=== PATIENT | female | born 1960 | race African-American/Black ===

== ENCOUNTER 2019-10-02 00:52 | Inpatient (IN) | payer MEDICAID ==
[~2019-10-02] VITALS: Ht 165.1 cm; Wt 74.9 kg
[2019-10-02] VITALS (9 sets, daily range): BP systolic 89–134; BP diastolic 62–77
--- NOTE | 2019-10-02 01:00 | NUR ---
ED Nurse Note: Brought in by ambulance [facility] from [facility] c/o failure to thrive and decreased oral intake. Pt COVID19 positive 09/22/19. Changed into gown and attached to monitor; vitals stable; afebrile. Patient AAOx1; arousable to name; presents with repetitive nonlinear speech. respirations even and unlabored; room air; spo2 wnl. Incontinent x2. Bowel sounds present in all quadrants. Skin intact. Fall and droplet precautions observed. All safety measures met.
[2019-10-02] MEDS ORDERED: DOCUSATE SODIU100 MG ORAL (01:04)
[2019-10-02] MEDS ORDERED: LEVOTHYROXINE75 MCG ORAL (01:04)
[2019-10-02] MEDS ORDERED: FUROSEMIDE20 M1 ORAL (01:04)
[2019-10-02] MEDS ORDERED: IMITREX50 MG ORAL (01:04)
[2019-10-02] MEDS ORDERED: ATENOLOL50 MG ORAL (01:04)
[2019-10-02] MEDS ORDERED: PHENYTOIN SODI100 MG ORAL (01:04)
[2019-10-02] MEDS ORDERED: KEPPRA500 M4 ORAL (01:04)
[2019-10-02] MEDS ORDERED: TYLENOL325 M1 PO (01:04)
--- NOTE | 2019-10-02 01:10 | NUR ---
ED Nurse Note: EKG done at bedside; NSR. IV access established right hand 18g. Blood and urine collected; sent down to lab. Will continue to monitor.
--- NOTE | 2019-10-02 01:15 | NUR ---
ED Nurse Note: Blood culture and inital lactic, VRE CRE MRSA swab collected; sent down to lab.
--- NOTE | 2019-10-02 01:29 | Emergency Room Report ---
History of Present Illness General Chief Complaint: Generalized Weakness Source: Patient, Medical Record, EMS Present Illness HPI This is a 59-year-old female who has a history of seizure psychiatric history and half-way patient. She presents with chief complaint of generalized weakness. Decreased appetite and decreased activities. She tested positive for COVID on September 20. Since then symptoms been progressively worse. There is no mention of fever chills but no cough or congestion. There is generalized weakness. History is limited on this patient because of her condition. Allergies: Coded Allergies: No Known Allergies (Unverified , 10/02/19) COVID-19 Screening Contact w/high risk pt: Yes Recent Travel to affected area: No Experienced COVID-19 symptoms?: Yes COVID-19 symptoms experienced: Fever (T>100.4F or >38C) Patient History Past Medical History: see triage record, old chart reviewed Past Surgical History: other Pertinent Family History: none Social History: Denies: smoking Now: No Immunizations: other Reviewed Nursing Documentation: PMH: Agreed; PSxH: Agreed Nursing Documentation-PMH Hx Cardiac Problems: Yes - heart failure Hx Hypertension: Yes - hyperlipidemia, hypothyroid Hx Gastrointestinal Problems: Yes - GERD Hx Neurological Problems: Yes - encephalopathy Hx Seizures: Yes - epilepsy Review of Systems Constitutional: Reports: malaise, weakness Eye: Denies: eye pain, blurred vision ENT: Denies: ear pain, nose congestion, throat swelling Respiratory: Denies: cough, shortness of breath Cardiovascular: Denies: chest pain, palpitations Gastrointestinal: Denies: abdominal pain, diarrhea, nausea, vomiting Musculoskeletal: Denies: back pain, joint pain Skin: Denies: rash Neurological: Denies: headache, numbness Endocrine: Denies: increased thirst, increased urine Hematologic/Lymphatic: Denies: easy bruising All Other Systems: negative except mentioned in HPI Physical Exam Vital Signs Date Time Temp Pulse Resp B/P (MAP) Pulse Ox O2 Delivery O2 Flow Rate FiO2 10/02/19 00:55 98.2 74 18 100/77 (85) 96 Room Air Vitals unremarkable Sp02 EP Interpretation: reviewed, normal General Appearance: well appearing, no apparent distress, alert Head: normocephalic, atraumatic Eyes: bilateral eye PERRL, bilateral eye EOMI ENT: hearing grossly normal, normal pharynx Neck: full range of motion, supple, no meningismus Respiratory: chest non-tender, lungs clear, normal breath sounds Cardiovascular #1: regular rate, rhythm, no murmur Gastrointestinal: normal bowel sounds, non tender, no mass, no organomegaly, no bruit, non-distended Musculoskeletal: back normal, normal range of motion Neurologic: alert, grossly normal Psychiatric: mood/affect normal Procedures Critical Care Time Critical Care Time Critical care is mandated in this patient who presented with acute renal failure and sepsis secondary to COVID infection. Patient require my urgent intervention to attenuate the risks of metabolic collapse which may lead to cardiovascular collapse and . Critical care time is 35 minutes excluding any reportable procedure. Critical care time included evaluation, multiple reevaluation, looking at old charts, interpreting laboratory and diagnostic data , discussing case with patient and family and consultants, and charting. Medical Decision Making Diagnostic Impression: Primary Impression: Acute metabolic encephalopathy Additional Impressions: COVID-19 virus infection UTI (urinary tract infection) Qualified Codes: N30.00 - Acute cystitis without hematuria ARF (acute renal failure) Qualified Codes: N17.9 - Acute kidney failure, unspecified Anemia Qualified Codes: D64.9 - Anemia, unspecified ER Course Patient presents with generalized weakness secondary to COVID infection. She is also in acute renal failure. She is not hypoxic. Antibiotics given. Patient will be admitted for IV fluid and IV antibiotics. I contacted Dr. Leija for admission. EKG Diagnostic Results Rate: normal Rhythm: NSR ST Segments: no acute changes Rhythm Strip Diag. Results EP Interpretation: yes Rate: 65 Rhythm: NSR, no PVC's, no ectopy Chest X-Ray Diagnostic Results Chest X-Ray Diagnostic Results : Chest X-Ray Ordered: Yes # of Views/Limited/Complete: 1 View Indication: Shortness of Breath EP Interpretation: Yes Interpretation: no consolidation, no effusion, no pneumothorax, no acute cardiopulmonary disease Impression: No acute disease Electronically Signed by: Ubaldo Poe MD Last Vital Signs Date Time Temp Pulse Resp B/P (MAP) Pulse Ox O2 Delivery O2 Flow Rate FiO2 10/02/19 00:55 98.2 74 18 100/77 (85) 96 Room Air Status: improved Disposition: ADMITTED INPATIENT Condition: Serious Ubaldo Poe MD October 02, 2019 01:29
[2019-10-02 01:55] LABS: APPEARANCE,URINE SLIGHTLY CLOUDY; BILIRUBIN, URINE NEGATIVE (NEGATIVE); GLUCOSE, URINE (UA) 2+ (NEGATIVE); KETONES,URINE NEGATIVE (NEGATIVE); LEUKOCYTE ESTERASE ,URINE 2+ (NEGATIVE); NITRITE,URINE POSITIVE (NEGATIVE); PH,URINE 6.5 (4.5-8.0); PROTEIN,URINE 4+ (NEGATIVE); UROBILINOGEN,URINE NORMAL MG/DL (0.0-1.0)
[2019-10-02 02:02] LABS: BASOPHILS % (AUTO) 0.6 % (0.0-2.0); EOSINOPHILS % (AUTO) 1.1 % (0.0-3.0); HEMATOCRIT 33.8 % (37.0-47.0); HEMOGLOBIN 11.5 G/DL (12.0-16.0); LYMPHOCYTES % (AUTO) 17.8 % (20.0-45.0); MEAN CORPUSCULAR VOLUME 74 FL (80-99); MONOCYTES % (AUTO) 9.5 % (1.0-10.0); PLATELET COUNT 457 K/UL (150-450); RED BLOOD COUNT 4.56 M/UL (4.20-5.40); RED CELL DISTRIBUTION WIDTH 11.8 % (11.6-14.8); WHITE BLOOD COUNT 16.3 K/UL (4.8-10.8)
[2019-10-02 02:09] LABS: ANION GAP 15 mmol/L (5-15); BLOOD UREA NITROGEN 114 mg/dL (7-18); CARBON DIOXIDE 18 MMOL/L (21-32); CHLORIDE 110 MMOL/L (98-107); CREATININE 10.5 MG/DL (0.55-1.30); POTASSIUM 4.7 MMOL/L (3.5-5.1); SODIUM 143 MMOL/L (136-145)
[2019-10-02 02:13] LABS: COLOR,URINE YELLOW
[2019-10-02 02:23] LABS: ALANINE AMINOTRANSFERASE 49 U/L (12-78); ALBUMIN/GLOBULIN RATIO 0.1 (1.0-2.7); ALKALINE PHOSPHATASE 185 U/L (46-116); ASPARTATE AMINO TRANSFERASE 53 U/L (15-37); BILIRUBIN,TOTAL 0.4 MG/DL (0.2-1.0)
[2019-10-02] MEDS ORDERED: Azithromycin 500 MG in NS 275 ML IV ONE (03:15)
[2019-10-02] MEDS ORDERED: cefTRIAXone 1 GM in NS 55 ML IVPB ONE (03:15)
[2019-10-02] MEDS ORDERED: Enoxaparin 60mg Inj SUBQ ONE (03:15)
--- NOTE | 2019-10-02 03:15 | NUR ---
ED Nurse Note: MEDICATED ORDERED; PATIENT TOLERATED WELL. BP 89/72. PATIENT SBP BASELINE 90-100. ASSYMPTOMATIC.
--- NOTE | 2019-10-02 04:26 | NUR ---
ED Nurse Note: PATIENT IN BED WITH NO ACUTE DISTERESS. BP REMAINS STABLE TO BASELINE; BP 96/67
--- NOTE | 2019-10-02 05:32 | NUR ---
ED Nurse Note: REPORT GIVEN TO YE GREENE. ENDORSED PATIENT BASELINE BLOOD PRESSURE AND CONTINUITY OF CARE. PATIENT TO BE ADMITTED TO [place] [id number] UNDER THE CARE OF MD TAYLER.
--- NOTE | 2019-10-02 06:00 | NUR ---
TRANSFER TO FLOOR: Patient transferred to [place] [id number] as ordered, per TAYLER. Report given to YE GREENE. PATIENT STABLE FOR TRANSFER. TRANSPORTED TO UNIT WITH [facility] VIA GURNEY. TRANSPORT DROPLET PRECAUTIONS OBSERVED. BELONGINGS AND ADMISSION PACKET SENT WITH PATIENT.
--- NOTE | 2019-10-02 06:20 | NUR ---
NURSE NOTES: Receive pt from ER in stable condition. pt is A&O x1,awake and verbal. pt vitals are stable, has no sob,cough,fever and complain of pain. pt is regular diet, skin is intact and she has RH 18g iv sl. pt is on covid 19 isolation because pt is positive for covid 19.Bed is in the lowest condition,locked and alarm on. Call light within reach. we will keep monitoring the pt.
--- NOTE | 2019-10-02 07:01 | NUR ---
HAND-OFF: Report given to andrade RN.
--- NOTE | 2019-10-02 07:02 | NUR ---
NURSE NOTES: Received patient in bed awake. No SOB or acute distress. IV line on right hand intact and patent. A&O x 1-2. Dr Leija notified of admission, awaiting callback. HOB elevated. Bed locked in lowest position, alarm on. Call light within reach. Will continue plan of care.
--- NOTE | 2019-10-02 07:38 | Diagnostic Imaging Report ---
Indication: Shortness of breath Technique: One view of the chest Comparison: 03/25/2006 Findings: Less optimal inspiration currently. There is some crowding of bronchovascular markings at the left lung base. Left costophrenic sulcus is obscured, small pleural effusion likely. The remainder the lungs pleural spaces are clear ventriculoperitoneal shunt tubing runs over the right chest. Impression: Probable small left pleural effusion Other findings as noted
--- NOTE | 2019-10-02 08:50 | NUR ---
NURSE NOTES: Dr Barrera called and gave admitting orders, noted and carried out.
[2019-10-02] MEDS: Docusate 100mg cap ORAL SCH ×2 (09:58→17:27)
[2019-10-02] MEDS: Phenytoin 100mg cap ORAL SCH ×3 (10:00→21:50)
--- NOTE | 2019-10-02 11:20 | Consultation ---
Consult Note Consult Note I am asked to evaluate the patient at the request of Dr. Dustin Leija for renal failure This is a 59-year-old female who has a history of seizure psychiatric history and [facility] patient. She presents with chief complaint of generalized weakness. Decreased appetite and decreased activities. She tested positive for COVID on September 20. Since then symptoms been progressively worse. There is no mention of fever chills but no cough or congestion. There is generalized weakness. History is limited on this patient because of her condition. No Known Allergies (Unverified , 10/02/19) COVID-19 Screening Contact w/high risk pt: Yes Recent Travel to affected area: No Experienced COVID-19 symptoms?: Yes COVID-19 symptoms experienced: Fever (T>100.4F or >38C) Hx Cardiac Problems: Yes - heart failure Hx Hypertension: Yes - hyperlipidemia, hypothyroid Hx Gastrointestinal Problems: Yes - GERD Hx Neurological Problems: Yes - encephalopathy Hx Seizures: Yes - epilepsy Assessment/Plan Renal failure most likely acute superimposed on chronic 4+ proteinuria with severe hypoalbuminemia should rule out nephrotic syndrome COVID-19 virus infection UTI Anemia with low MCV, likely part due to iron deficiency Toxic metabolic encephalopathy History of seizures Saini catheter, 24-hour urine collection for protein Hydrate Kidney ultrasound Avoid nephrotoxic's Urine studies Monitor renal parameters Antibiotics Continue per consultants Yinka Boston MD October 02, 2019 11:20
[2019-10-02] MEDS ORDERED: Albumin Human 5% 250ml IV SCH (11:30)
--- NOTE | 2019-10-02 13:04 | Consultation ---
History of Present Illness General Date patient seen: October 02, 2019 Chief Complaint: Generalized Weakness Present Illness HPI 59 y/o F with hx of CHF, HLD, hypothyroidism, GERD, seizure disorder, [place] resident presented to ED on 10/01 with generalized weakness, decreased appetite and energy. Patient tested positive for COVID on September 20. Since then , symptoms has been progressively worse. Patient afebrile, noted with Cr up to 10, leukocytosis. Denied fever, chills, cough, congestion Allergies: Coded Allergies: No Known Allergies (Unverified , 10/02/19) Medication History Scheduled Atenolol* (Tenormin*), 50 MG ORAL DAILY, (Reported) Docusate Sodium* (Docusate Sodium*), 100 MG ORAL TWICE A DAY, (Reported) Furosemide* (Lasix*), 20 MG ORAL DAILY, (Reported) Levetiracetam (Keppra), 500 MG ORAL EVERY 12 HOURS, (Reported) Levothyroxine Sodium* (Levothyroxine Sodium*), 25 MCG ORAL DAILY, (Reported) Phenytoin Sodium Extended* (Phenytoin Sodium Extended*), 100 MG ORAL THREE TIMES A DAY, (Reported) Sumatriptan Succinate* (Imitrex*), 25 MG ORAL DAILY PRN MIGRAINE, (Reported) Miscellaneous Medications Acetaminophen (Tylenol), 325 MG PO, (Reported) Patient History Healthcare decision maker Resuscitation status Advanced Directive on File Patient History Narrative Pmhx: as above Shx: Denies: smoking Fhx: non contributory Review of Systems All Other Systems: negative except mentioned in HPI Physical Exam Physical Exam Narrative General Appearance: well appearing, no apparent distress, alert Head: normocephalic, atraumatic Eyes: bilateral eye PERRL, bilateral eye EOMI ENT: hearing grossly normal, normal pharynx Neck: full range of motion, supple, no meningismus Respiratory: chest non-tender, lungs clear, normal breath sounds Cardiovascular #1: regular rate, rhythm, no murmur Gastrointestinal: normal bowel sounds, non tender, no mass, no organomegaly, no bruit, non-distended Musculoskeletal: back normal, normal range of motion Neurologic: alert, grossly normal Psychiatric: mood/affect normal Last 24 Hour Vital Signs Date Time Temp Pulse Resp B/P (MAP) Pulse Ox O2 Delivery O2 Flow Rate FiO2 10/02/19 12:00 98.6 73 18 107/74 (85) 96 10/02/19 09:00 67 105/65 10/02/19 08:00 98.8 67 17 105/65 (78) 97 10/02/19 06:39 97.6 68 18 127/67 (87) 96 10/02/19 06:38 Room Air 10/02/19 06:00 98.2 74 18 96/ 96 Room Air 10/02/19 05:45 98.2 73 18 98/67 96 Room Air 10/02/19 04:23 98.2 74 18 96/67 96 Room Air 10/02/19 03:00 98.2 71 18 89/72 96 Room Air 10/02/19 01:00 74 18 Room Air 10/02/19 01:00 98.2 74 18 100/77 96 Room Air 10/02/19 00:55 98.2 74 18 100/77 (85) 96 Room Air Laboratory Tests Test 10/02/19 01:10 White Blood Count 16.3 K/UL (4.8-10.8) H Red Blood Count 4.56 M/UL (4.20-5.40) Hemoglobin 11.5 G/DL (12.0-16.0) L Hematocrit 33.8 % (37.0-47.0) L Mean Corpuscular Volume 74 FL (80-99) L Mean Corpuscular Hemoglobin 25.2 PG (27.0-31.0) L Mean Corpuscular Hemoglobin Concent 34.1 G/DL (32.0-36.0) Red Cell Distribution Width 11.8 % (11.6-14.8) Platelet Count 457 K/UL (150-450) H Mean Platelet Volume 4.8 FL (6.5-10.1) L Neutrophils (%) (Auto) 71.0 % (45.0-75.0) Lymphocytes (%) (Auto) 17.8 % (20.0-45.0) L Monocytes (%) (Auto) 9.5 % (1.0-10.0) Eosinophils (%) (Auto) 1.1 % (0.0-3.0) Basophils (%) (Auto) 0.6 % (0.0-2.0) Erythrocyte Sedimentation Rate 70 MM/HR (0-30) H D-Dimer 4.10 mg/L FEU (0.00-0.49) H Urine Color Yellow Urine Appearance Slightly cloudy Urine pH 6.5 (4.5-8.0) Urine Specific [place] 1.015 (1.005-1.035) Urine Protein 4+ (NEGATIVE) H Urine Glucose (UA) 2+ (NEGATIVE) H Urine Ketones Negative (NEGATIVE) Urine Blood 1+ (NEGATIVE) H Urine Nitrite Positive (NEGATIVE) H Urine Bilirubin Negative (NEGATIVE) Urine Urobilinogen Normal MG/DL (0.0-1.0) Urine Leukocyte Esterase 2+ (NEGATIVE) H Urine RBC 0-2 /HPF (0 - 2) Urine WBC Tntc /HPF (0 - 2) H Urine Squamous Epithelial Cells Few /LPF (NONE/OCC) Urine Bacteria Many /HPF (NONE) H Sodium Level 143 MMOL/L (136-145) Potassium Level 4.7 MMOL/L (3.5-5.1) Chloride Level 110 MMOL/L (98-107) H Carbon Dioxide Level 18 MMOL/L (21-32) L Anion Gap 15 mmol/L (5-15) Blood Urea Nitrogen 114 mg/dL (7-18) H Creatinine 10.5 MG/DL (0.55-1.30) H Estimat Glomerular Filtration Rate 4.6 mL/min (>60) Glucose Level 122 MG/DL (74-106) H Lactic Acid Level 1.80 mmol/L (0.4-2.0) Calcium Level 8.0 MG/DL (8.5-10.1) L Total Bilirubin 0.4 MG/DL (0.2-1.0) Aspartate Amino Transf (AST/SGOT) 53 U/L (15-37) H Alanine Aminotransferase (ALT/SGPT) 49 U/L (12-78) Alkaline Phosphatase 185 U/L (46-116) H Troponin I 0.000 ng/mL (0.000-0.056) C-Reactive Protein, Quantitative 16.5 mg/dL (0.00-0.90) H Total Protein 7.7 G/DL (6.4-8.2) Albumin 1.0 G/DL (3.4-5.0) L Globulin 6.7 g/dL Albumin/Globulin Ratio 0.1 (1.0-2.7) L Microbiology Date/Time Source Procedure Growth Status 10/02/19 01:10 Rectum Received Height (Feet): 5 Height (Inches): 5.00 Weight (Pounds): 130 Medications Current Medications Medications (Trade) Dose Ordered Sig/[place] Route PRN Reason Start Time Stop Time Status Last Admin Dose Admin Acetaminophen (Tylenol) 650 mg Q4HR PRN ORAL TEMP>100.5 10/02/19 03:15 Atenolol (Tenormin) 50 mg DAILY ORAL 10/02/19 09:00 11/01/19 08:59 Docusate Sodium (Colace) 100 mg TWICE A DAY ORAL 10/02/19 09:00 11/01/19 08:59 10/02/19 09:58 Levetiracetam (Keppra) 500 mg Q12HR ORAL 10/02/19 09:00 11/01/19 08:59 10/02/19 09:58 Levothyroxine Sodium (Synthroid) 25 mcg DAILY@0630 ORAL 10/03/19 06:30 11/02/19 06:29 Phenytoin (Dilantin) 100 mg Q8HR ORAL 10/02/19 09:00 11/01/19 08:59 10/02/19 10:00 Sodium Chloride 1,000 ml @ 75 mls/hr [id number] IV 10/02/19 09:00 11/01/19 08:59 10/02/19 09:57 Assessment/Plan Assessment/Plan: Abx: Azithromycin x1 10/01 CEftriaxone x1 10/01 Assessment: COVID positive (tested positive on 09/20) -10/01 CXR: There is some crowding of bronchovascular markings at the left lung base. Left costophrenic sulcus is obscured, small pleural effusion likely. UTI -u/a wbc tnct, nit +, leuk +2; ucx p Afebrile Leukocytosis BOB on CKD (cr 10.4)- last Cr available was 1.4 on 2005 CHF HLD hypothyroidism GERD seizure disorder [place] resident Plan: -Continue empiric Ceftriaxone #1 -f/u cx -Monitor CBC/CMP, temperatures -COVID19 isolation; will re-test for clearance (needs 2 negative) Thank you for consulting [facility]. Will continue to follow along with you. Discussed with RN, Marie Ross M.D. October 02, 2019 13:04
--- NOTE | 2019-10-02 14:44 | NUR ---
CASE MANAGEMENT:REVIEW 59 YR OLD FEMALE BIBA FROM [facility] CC: DECREASED ORAL INTAKE. FTT. POSITIVE COVID 19 ON 09/22/19 SI: COVID POSITIVE. ACUTE RENAL FAILURE.UTI 98.2 74 18 96/67 96% ON RA WBC+16.3 BUN+114 CR+10.5 CRP+16.5 IS: 500CC NS BOLUS LOVENOX SQ IV ROCEPHIN IV AZITHROMYCIN 1L NS BOLUS BLOOD CX URINE CX CHEST XRAY : TO TELEMETRY UNIT DCP: FROM [facility]
--- NOTE | 2019-10-02 17:00 | NUR ---
NURSE NOTES: SCD in place.
--- NOTE | 2019-10-02 17:44 | Consultation ---
DATE OF CONSULTATION: 10/02/2019 PULMONARY CONSULTATION HISTORY OF PRESENT ILLNESS: This is a 59-year-old female with a known history of underlying psychiatric disorder, longterm resident, and seizures, was brought to the hospital with generalized weakness. The patient reportedly tested positive for COVID-19 approximately 10 days ago. She has been gradually getting worse and reports shortness of breath. There was no fever reported. The patient unable to provide any further information. PAST MEDICAL HISTORY: Notable for seizure disorder, psych disorder, longterm resident, previous history of CHF, hyperlipidemia, hypothyroidism, GERD, chronic encephalopathy. PAST SURGICAL HISTORY: None reported. HOME MEDICATIONS: Reviewed and reconciled in chart. REVIEW OF SYSTEMS: Not obtainable. PHYSICAL EXAMINATION: GENERAL: Reveals a elderly female. VITAL SIGNS: O2 saturation 96% on room air, blood pressure 105/60, heart rate 84, respiratory rate , afebrile. HEENT: Unremarkable. CHEST: Decreased breath sounds bilaterally with normal heart sounds. ABDOMEN: Soft. LABORATORY DATA: Lab testing shows white count 16.3, otherwise normal CBC. Creatinine is 10.5, BUN 114. IMPRESSION: 1. Acute on chronic renal failure. 2. CHF. 3. Hyperlipidemia. 4. Hypothyroidism. 5. GERD. 6. Encephalopathy. 7. Positive COVID-19. 8. Seizure disorder. DISCUSSION: Admitted to the hospital. IV fluids. Saini catheter. Antibiotics per ID. Currently saturating well on low-flow oxygen and room air. We will follow carefully. Esequiel Barrera M.D. DR: Filiberto JOB#: [id number] CC:
--- NOTE | 2019-10-02 19:31 | NUR ---
HAND-OFF: Report given to Nigel BELCHER.
--- NOTE | 2019-10-02 19:32 | NUR ---
NURSE NOTES: Received patient in no apparent distress. A&OX1. IV site patent and intact. Saini draining well by gravity, yellow urine noted. Bed in lowest position. Call light within reach. Will continue to monitor.
--- NOTE | 2019-10-02 22:14 | History and Physical Report ---
DATE OF ADMISSION: 10/02/2019 TIME SEEN: 1 p.m. CONSULTANTS: 1. Esequiel Barrera MD 2. Cyril Pablo MD 3. Yinka Boston MD CHIEF COMPLAINT: Failure to thrive, COVID virus infection, weakness, renal failure, UTI. BRIEF HISTORY: This is a 59-year-old female from [facility] presents with one week increased lethargy and failure to thrive, was found to have COVID-19 positive, sent to [place], diagnosed with the above, admitted to medical floor. Currently, calm in bed, confused, not talking much. REVIEW OF SYSTEMS: Unavailable. PAST MEDICAL HISTORY: Includes diabetes, hypertension, malnutrition, hypothyroid. PAST SURGICAL HISTORY: Unknown. MEDICATIONS: Include levothyroxine, atenolol, furosemide, levetiracetam, azithromycin, ceftriaxone, enoxaparin, Tylenol. ALLERGIES: Denies. SOCIAL HISTORY: No smoking. No alcohol. No intravenous drug abuse. FAMILY HISTORY: Noncontributory. PHYSICAL EXAMINATION: GENERAL: Calm in bed, oriented x1, in no acute distress. VITAL SIGNS: Temperature 98 degrees, pulse 73, respirations 18, blood pressure 107/74. HEENT: Normocephalic and atraumatic. NECK: Trachea midline. CARDIOVASCULAR: No peripheral edema. PULMONARY: Breathing comfortably on room air. ABDOMEN: No apparent wound. EXTREMITIES: No cyanosis or clubbing. LABORATORY AND DIAGNOSTIC DATA: Labs at this time show white count 16, hemoglobin and hematocrit 11/33, platelets 457. BMP shows chloride 110, CO2 18, BUN and creatinine 114 and 10.5, glucose 122. Albumin 1.0. Urinalysis 2+ leukocyte esterase. ASSESSMENT: 1. Failure to thrive. 2. COVID virus infection. 3. Weakness. 4. Renal failure. 5. UTI. 6. Anemia. 7. Sepsis. 8. Hypertension. 9. Diabetes. 10. Malnutrition. 11. Hypothyroid. PLAN: 1. O2 and pulmonary treatment as needed. 2. Antibiotics per Infectious Disease. 3. Pain control. 4. Dietary followup. 5. Blood pressure and blood sugar control. 6. PT and dietary evaluation. 7. CBC and BMP in the morning. Dustin Leija D.O. DR: Brea JOB#: [id number] CC:
[2019-10-03] VITALS: BP 118/60
[2019-10-03] MEDS: cefTRIAXone 1 GM in D5W 55 ML IVPB SCH (03:03)
[2019-10-03 04:00] VITALS: BP 127/57
[2019-10-03] MEDS: Phenytoin 100mg cap ORAL SCH ×3 (05:58→20:21)
[2019-10-03] MEDS: Levothyroxine 25mcg tab ORAL SCH (05:58)
--- NOTE | 2019-10-03 07:20 | NUR ---
HAND-OFF: Report given to Ashvin Sharif RN.
[2019-10-03 08:00] VITALS: BP 131/75
[2019-10-03] MEDS: Docusate 100mg cap ORAL SCH ×5 (08:57→18:00)
--- NOTE | 2019-10-03 09:04 | General Progress Note ---
Assessment/Plan Problem List: (1) FTT (failure to thrive) in adult ICD Codes: R62.7 - Adult failure to thrive SNOMED: 678195635 (2) Weak ICD Codes: R53.1 - Weakness SNOMED: 98977371 (3) Sepsis ICD Codes: A41.9 - Sepsis, unspecified organism SNOMED: 14769109 (4) HTN (hypertension) ICD Codes: I10 - Essential (primary) hypertension SNOMED: 66008622 (5) Diabetes ICD Codes: E11.9 - Type 2 diabetes mellitus without complications SNOMED: 66898197 (6) Hypothyroid ICD Codes: E03.9 - Hypothyroidism, unspecified SNOMED: 51284067 (7) Malnutrition ICD Codes: E46 - Unspecified protein-calorie malnutrition SNOMED: 50308074 (8) COVID-19 virus infection ICD Codes: U07.1 - COVID-19 SNOMED: 844684179 (9) Acute metabolic encephalopathy ICD Codes: G93.41 - Metabolic encephalopathy SNOMED: 17839767, 635377949 (10) Anemia ICD Codes: D64.9 - Anemia, unspecified SNOMED: 647229389 Qualifiers: Qualified Codes: D64.9 - Anemia, unspecified (11) UTI (urinary tract infection) ICD Codes: N39.0 - Urinary tract infection, site not specified SNOMED: 44964774 Qualifiers: Qualified Codes: N30.00 - Acute cystitis without hematuria (12) ARF (acute renal failure) ICD Codes: N17.9 - Acute kidney failure, unspecified SNOMED: 33572824 Qualifiers: Qualified Codes: N17.9 - Acute kidney failure, unspecified Status: unchanged Assessment/Plan: pt diet abx bp bs control cbc bmp am Subjective Constitutional: Reports: weakness Allergies: Coded Allergies: No Known Allergies (Unverified , 10/02/19) All Systems: reviewed and negative except above Subjective sleepy calm Objective Last 24 Hour Vital Signs Date Time Temp Pulse Resp B/P (MAP) Pulse Ox O2 Delivery O2 Flow Rate FiO2 10/03/19 08:57 74 131/75 10/03/19 08:00 98.6 74 18 131/75 (93) 96 10/03/19 04:00 97.4 66 19 127/57 (80) 96 10/03/19 00:00 98.0 60 19 118/60 (79) 95 10/02/19 21:00 Room Air 10/02/19 20:00 97.9 64 19 122/64 (83) 96 10/02/19 16:00 98.9 79 18 134/62 (86) 96 10/02/19 12:00 98.6 73 18 107/74 (85) 96 Intake and Output 10/02/19 10/03/19 19:00 07:00 Intake Total 895 ml 805 ml Output Total 350 ml 650 ml Balance 545 ml 155 ml Intake IV Total 675 ml 805 ml Other 220 ml Output Urine Total 350 ml 650 ml # Voids 1 # Bowel Movements 1 Laboratory Tests 10/03/19 08:30: White Blood Count [Pending], Red Blood Count [Pending], Hemoglobin [Pending], Hematocrit [Pending], Mean Corpuscular Volume [Pending], Mean Corpuscular Hemoglobin [Pending], Mean Corpuscular Hemoglobin Concent [Pending], Red Cell Distribution Width [Pending], Platelet Count [Pending], Mean Platelet Volume [ Pending], Neutrophils (%) (Auto) [Pending], Lymphocytes (%) (Auto) [Pending], Monocytes (%) (Auto) [Pending], Eosinophils (%) (Auto) [Pending], Basophils (%) (Auto) [Pending], D-Dimer [Pending], Sodium Level [Pending], Potassium Level [ Pending], Chloride Level [Pending], Carbon Dioxide Level [Pending], Blood Urea Nitrogen [Pending], Creatinine [Pending], Estimat Glomerular Filtration Rate [ Pending], Glucose Level [Pending], Hemoglobin A1c [Pending], Uric Acid [Pending] , Calcium Level [Pending], Phosphorus Level [Pending], Magnesium Level [Pending] , Iron Level [Pending], Unsaturated Iron Binding [Pending], Ferritin [Pending], Total Bilirubin [Pending], Gamma Glutamyl Transpeptidase [Pending], Aspartate Amino Transf (AST/SGOT) [Pending], Alanine Aminotransferase (ALT/SGPT) [Pending] , Alkaline Phosphatase [Pending], Total Creatine Kinase [Pending], Troponin I [ Pending], C-Reactive Protein, Quantitative [Pending], Pro-B-Type Natriuretic Peptide [Pending], Total Protein [Pending], Albumin [Pending], Globulin [Pending ], Triglycerides Level [Pending], Cholesterol Level [Pending], LDL Cholesterol [ Pending], HDL Cholesterol [Pending], Cholesterol/HDL Ratio [Pending], Vitamin B12 Level [Pending], Folate [Pending], Thyroid Stimulating Hormone (TSH) [ Pending], Phenytoin (Dilantin) Level [Pending] Height (Feet): 5 Height (Inches): 5.00 Weight (Pounds): 164 General Appearance: lethargic EENT: normal ENT inspection Neck: normal alignment Cardiovascular: normal rate, regular rhythm Respiratory/Chest: no respiratory distress, no accessory muscle use Extremities: normal inspection Skin: normal pigmentation Dustin Leija DO October 03, 2019 09:04
[2019-10-03 09:07] LABS: BASOPHILS % (AUTO) 0.9 % (0.0-2.0); EOSINOPHILS % (AUTO) 2.2 % (0.0-3.0); HEMATOCRIT 30.2 % (37.0-47.0); HEMOGLOBIN 9.7 G/DL (12.0-16.0); LYMPHOCYTES % (AUTO) 16.3 % (20.0-45.0); MEAN CORPUSCULAR VOLUME 75 FL (80-99); MONOCYTES % (AUTO) 10.9 % (1.0-10.0); NEUTROPHILS % (AUTO) 69.7 % (45.0-75.0); PLATELET COUNT 320 K/UL (150-450); RED BLOOD COUNT 4.03 M/UL (4.20-5.40); RED CELL DISTRIBUTION WIDTH 11.8 % (11.6-14.8); WHITE BLOOD COUNT 13.7 K/UL (4.8-10.8)
[2019-10-03 09:38] LABS: % IRON SATURATION 100 % (15-50); IRON 49 ug/dL (50-175); TOTAL IRON BINDING CAPACITY 49 ug/dL (250-450)
[2019-10-03 09:46] LABS: ALANINE AMINOTRANSFERASE 23 U/L (12-78); ALBUMIN 1.3 G/DL (3.4-5.0); ALBUMIN/GLOBULIN RATIO 0.3 (1.0-2.7); ALKALINE PHOSPHATASE 126 U/L (46-116); ANION GAP 19 mmol/L (5-15); ASPARTATE AMINO TRANSFERASE 27 U/L (15-37); BILIRUBIN,TOTAL 0.3 MG/DL (0.2-1.0); BLOOD UREA NITROGEN 83 mg/dL (7-18); CARBON DIOXIDE 15 MMOL/L (21-32); CHLORIDE 114 MMOL/L (98-107); CHOLESTEROL 116 MG/DL (< 200); CREATINE KINASE 131 U/L (26-308); CREATININE 7.5 MG/DL (0.55-1.30); GAMMA GLUTAMYL TRANSPEPTIDASE 284 U/L (5-85); HDL CHOLESTEROL 32 MG/DL (40-60); PHOSPHORUS 7.8 MG/DL (2.5-4.9); POTASSIUM 3.9 MMOL/L (3.5-5.1); SODIUM 147 MMOL/L (136-145); TRIGLYCERIDES 132 MG/DL (30-150)
[2019-10-03 10:11] LABS: FERRITIN 1930 NG/ML (8-388)
[2019-10-03] MEDS: Haloperidol 5mg/ml Inj IM PRN (10:15)
--- NOTE | 2019-10-03 10:24 | NUR ---
NURSE NOTES: PT AXOX1, CONFUSED, RESTING IN BED. PT IS GUARDED AND SUSPICIOUS OF NURSES. WHEN RN AND ASSEMBLY ROOM SUPERVISOR ATTEMPTED TO TAKE PT'S BLOOD PRESSURE, PT WAS VERY RESISTIVE. PT DOES NOT WANT TO TAKE PO MEDICATIONS. RN CRUSHED MEDS AND ATTEMPTED TO GIVE WITH APPLESAUCE. PT REFUSED TO TAKE MEDS WITH APPLESAUCE, PUSHING RN AWAY. PT ALSO REFUSING TO EAT BREAKFAST. RN MADE DR LESTER AND DR GARVEY AWARE WITH NEW ORDERS FOR SEROQUEL AND HALDOL IM. ORDERS ENTERED. RN ADMINISTERED HALDOL 5MG IM IN LEFT VASTUS LATERALIS. WILL CONTINUE TO MONITOR. PT IN NO APPARENT DISTRESS AT THIS TIME. BED IN LOWEST POSITION WITH BEDSIDE RAILS X3 RAISED. BED ALARM ON. PT IN SEMI-GONZALEZ'S POSITION.
--- NOTE | 2019-10-03 10:36 | NUR ---
RD ASSESSMENT & RECOMMENDATIONS SEE CARE ACTIVITY FOR COMPLETE ASSESSMENT DAILY ESTIMATED NEEDS: Needs based on Renal, 61.2kg abw 25-30 kcals/kg 5518-7266 total kcals .8-1.2 g protein/kg 49-73 g total protein Fluid per MD NUTRITION DIAGNOSIS: Decreased sodium needs r/t renal dysfunction as evidenced by renal failure most likely acute superimposed on chronic per MD, elevated BUN (83), elev Creat (7.5) w/ elevated phos and mg. CURRENT DIET:Regular, now renal PO DIET RECOMMENDATIONS: Maintain renal diet / texture as tolerated ADDITIONAL RECOMMENDATIONS: 1) Add Nepro TID w/ meals w/ current poor po 2) MARKETING TECHNOLOGIST for texture 3) Maintain calibrated bed scale wts-> adm w/ FTT 4) Rec bed side BG testing, A1C 6.4 (pre-dm) w/ poor po intake -> at risk for hypoglycemia
--- NOTE | 2019-10-03 10:44 | Pulmonology Progress Note ---
Subjective Interval Events: none new Constitutional: Reports: no symptoms HEENT: Repors: no symptoms Respiratory: Reports: no symptoms Cardiovascular: Reports: no symptoms Allergies: Coded Allergies: No Known Allergies (Unverified , 10/02/19) All Systems: reviewed and negative except above Objective Last 24 Hour Vital Signs Date Time Temp Pulse Resp B/P (MAP) Pulse Ox O2 Delivery O2 Flow Rate FiO2 10/03/19 09:00 Room Air 10/03/19 08:00 98.6 74 18 131/75 (93) 96 10/03/19 04:00 97.4 66 19 127/57 (80) 96 10/03/19 00:00 98.0 60 19 118/60 (79) 95 10/02/19 21:00 Room Air 10/02/19 20:00 97.9 64 19 122/64 (83) 96 10/02/19 16:00 98.9 79 18 134/62 (86) 96 10/02/19 12:00 98.6 73 18 107/74 (85) 96 Intake and Output 10/02/19 10/03/19 19:00 07:00 Intake Total 895 ml 805 ml Output Total 350 ml 650 ml Balance 545 ml 155 ml Intake IV Total 675 ml 805 ml Other 220 ml Output Urine Total 350 ml 650 ml # Voids 1 # Bowel Movements 1 General Appearance: no acute distress HEENT: normocephalic Respiratory/Chest: chest wall non-tender, lungs clear Cardiovascular: normal peripheral pulses Abdomen: normal bowel sounds Microbiology Date/Time Source Procedure Growth Status 10/02/19 01:25 Blood Blood Culture - Preliminary NO GROWTH AFTER 24 HOURS Resulted 10/02/19 01:10 Blood Blood Culture - Preliminary NO GROWTH AFTER 24 HOURS Resulted 10/02/19 01:10 Urine,Clean Catch Urine Culture - Preliminary Resulted 10/02/19 01:10 Rectum Received Laboratory Tests 10/03/19 08:30: White Blood Count 13.7H, Red Blood Count 4.03L, Hemoglobin 9.7L, Hematocrit 30.2L, Mean Corpuscular Volume 75L, Mean Corpuscular Hemoglobin 24.1L, Mean Corpuscular Hemoglobin Concent 32.2, Red Cell Distribution Width 11.8, Platelet Count 320, Mean Platelet Volume 4.8L, Neutrophils (%) (Auto) 69.7, Lymphocytes ( %) (Auto) 16.3L, Monocytes (%) (Auto) 10.9H, Eosinophils (%) (Auto) 2.2, Basophils (%) (Auto) 0.9, D-Dimer 2.63H, Sodium Level 147H, Potassium Level 3.9 , Chloride Level 114H, Carbon Dioxide Level 15L, Anion Gap 19H, Blood Urea Nitrogen 83H, Creatinine 7.5H, Estimat Glomerular Filtration Rate 6.8, Glucose Level 78, Hemoglobin A1c 6.4H, Uric Acid 7.2, Calcium Level 8.0L, Phosphorus Level 7.8H, Magnesium Level 2.5H, Iron Level 49L, Total Iron Binding Capacity 49L, Percent Iron Saturation 100H, Unsaturated Iron Binding 0L, Ferritin 1930H, Total Bilirubin 0.3, Gamma Glutamyl Transpeptidase 284H, Aspartate Amino Transf (AST/SGOT) 27, Alanine Aminotransferase (ALT/SGPT) 23, Alkaline Phosphatase 126H , Total Creatine Kinase 131, Troponin I 0.010, C-Reactive Protein, Quantitative 10.0H, Pro-B-Type Natriuretic Peptide 2218H, Total Protein 6.0L, Albumin 1.3L, Globulin 4.7, Albumin/Globulin Ratio 0.3L, Triglycerides Level 132, Cholesterol Level 116, LDL Cholesterol 74, HDL Cholesterol 32L, Cholesterol/HDL Ratio 3.6, Vitamin B12 Level 1254H, Folate 5.4L, Thyroid Stimulating Hormone (TSH) 1.771, Phenytoin (Dilantin) Level 4.6L Current Medications Medications (Trade) Dose Ordered Sig/Avila Route PRN Reason Start Time Stop Time Status Last Admin Dose Admin Acetaminophen (Tylenol) 650 mg Q4HR PRN ORAL TEMP>100.5 10/02/19 03:15 Atenolol (Tenormin) 50 mg DAILY ORAL 10/02/19 09:00 11/01/19 08:59 Ceftriaxone Sodium 1 gm/ Dextrose 55 ml @ 110 mls/hr Q24H IVPB 10/03/19 03:00 10/10/19 02:59 10/03/19 03:03 Docusate Sodium (Colace) 100 mg TID ORAL 10/03/19 13:00 11/01/19 08:59 Folic Acid (Folate) 2 mg DAILY ORAL 10/03/19 10:00 11/02/19 09:59 Haloperidol Lactate (Haldol) 5 mg Q6H PRN IM Agitation 10/03/19 09:33 11/17/19 09:32 10/03/19 10:15 Levetiracetam (Keppra) 500 mg Q12HR ORAL 10/02/19 09:00 11/01/19 08:59 10/02/19 21:50 Levothyroxine Sodium (Synthroid) 25 mcg DAILY@0630 ORAL 10/03/19 06:30 11/02/19 06:29 10/03/19 05:58 Phenytoin (Dilantin) 100 mg Q8HR ORAL 10/02/19 09:00 11/01/19 08:59 10/03/19 05:58 Quetiapine Fumarate (SEROqueL) 25 mg Q12HR ORAL 10/03/19 09:45 11/17/19 09:44 Sevelamer Carbonate (Renvela) 1,600 mg THREE TIMES A DAY ORAL 10/03/19 13:00 01/01/20 12:59 Sodium Chloride 1,000 ml @ 75 mls/hr [id number] IV 10/03/19 09:57 11/02/19 09:56 10/03/19 10:15 Assessment/Plan Assessment/Plan IMPRESSION: 1. Acute on chronic renal failure. 2. CHF. 3. Hyperlipidemia. 4. Hypothyroidism. 5. GERD. 6. Encephalopathy. 7. Positive COVID-19. 8. Seizure disorder. DISCUSSION: Continue IV fluids. Antibiotics per ID. Currently saturating well on low-flow oxygen and room air. I will follow carefully. Jaleel Du Omar Syed MD October 03, 2019 10:44
--- NOTE | 2019-10-03 10:51 | NUR ---
NURSE NOTES: PT'S IVF WAS HELD DUE TO PITTING EDEMA 2+ ON RIGHT UPPER EXTREMITY. PT WILL NOT LET RN INSERT NEW IV ACCESS. PT IS COMBATIVE AND AGITATED. WILL WAIT UNTIL PT IS MORE CALM TO ATTEMPT IV ACCESS. PT WAS GIVEN PRN HALDOL EARLIER FOR AGITATION. WILL CONTINUE TO MONITOR.
[2019-10-03 11:42] VITALS: BP 136/72
--- NOTE | 2019-10-03 13:24 | NUR ---
CASE MANAGEMENT:REVIEW SI;COVID-19 POSITIVE. UTI. AC KIDNEY INJURY. 98.4 74 21 136/72 95% ON RA WBC 13.7 NA 147 BUN 83 CR 7.5 CA 8.0 MG 2.5 FERRITIN 1930 CRP 10.0 BNP 2218 IS;IVF NS @ 75 ML/HR ROCEPHIN IV QD KEPPRA PO Q12 HR DILANTIN PO Q8 HR ATENOLOL PO QD FOLATE PO QD MED SURG STATUS DCP;PATIENT IS FROM [facility]
--- NOTE | 2019-10-03 13:50 | Infectious Diseases Prog Note ---
Assessment/Plan Assessment/Plan Assessment: COVID positive (tested positive on 09/20) -10/01 CXR: There is some crowding of bronchovascular markings at the left lung base. Left costophrenic sulcus is obscured, small pleural effusion likely. UTI -u/a wbc tnct, nit +, leuk +2; ucx p -Bcx NTD Afebrile Leukocytosis; improving BOB on CKD (cr 10.4)- last Cr available was 1.4 on 2005- improving CHF HLD hypothyroidism GERD seizure disorder [place] resident Plan: -Continue empiric Ceftriaxone #2 pending Ucx -10/01 SP Azithromycin x1 -f/u cx -Monitor CBC/CMP, temperatures -COVID19 isolation; will re-test for clearance (needs 2 negative) Thank you for consulting [facility]. Will continue to follow along with you. Discussed with RN, Subjective Allergies: Coded Allergies: No Known Allergies (Unverified , 10/02/19) Subjective afebrile at RA wbc and Cr improving Objective Vital Signs Last 24 Hour Vital Signs Date Time Temp Pulse Resp B/P (MAP) Pulse Ox O2 Delivery O2 Flow Rate FiO2 10/03/19 11:42 98.4 67 21 136/72 (93) 97 10/03/19 09:00 Room Air 10/03/19 08:00 98.6 74 18 131/75 (93) 96 10/03/19 04:00 97.4 66 19 127/57 (80) 96 10/03/19 00:00 98.0 60 19 118/60 (79) 95 10/02/19 21:00 Room Air 10/02/19 20:00 97.9 64 19 122/64 (83) 96 10/02/19 16:00 98.9 79 18 134/62 (86) 96 Height (Feet): 5 Height (Inches): 5.00 Weight (Pounds): 164 Objective not examined to limit COVID19 exposure Microbiology Date/Time Source Procedure Growth Status 10/02/19 01:25 Blood Blood Culture - Preliminary NO GROWTH AFTER 24 HOURS Resulted 10/02/19 01:10 Blood Blood Culture - Preliminary NO GROWTH AFTER 24 HOURS Resulted 10/02/19 01:10 Urine,Clean Catch Urine Culture - Preliminary Resulted 10/02/19 01:10 Rectum Received Laboratory Tests Test 10/03/19 08:30 White Blood Count 13.7 K/UL (4.8-10.8) H Red Blood Count 4.03 M/UL (4.20-5.40) L Hemoglobin 9.7 G/DL (12.0-16.0) L Hematocrit 30.2 % (37.0-47.0) L Mean Corpuscular Volume 75 FL (80-99) L Mean Corpuscular Hemoglobin 24.1 PG (27.0-31.0) L Mean Corpuscular Hemoglobin Concent 32.2 G/DL (32.0-36.0) Red Cell Distribution Width 11.8 % (11.6-14.8) Platelet Count 320 K/UL (150-450) Mean Platelet Volume 4.8 FL (6.5-10.1) L Neutrophils (%) (Auto) 69.7 % (45.0-75.0) Lymphocytes (%) (Auto) 16.3 % (20.0-45.0) L Monocytes (%) (Auto) 10.9 % (1.0-10.0) H Eosinophils (%) (Auto) 2.2 % (0.0-3.0) Basophils (%) (Auto) 0.9 % (0.0-2.0) D-Dimer 2.63 mg/L FEU (0.00-0.49) H Sodium Level 147 MMOL/L (136-145) H Potassium Level 3.9 MMOL/L (3.5-5.1) Chloride Level 114 MMOL/L (98-107) H Carbon Dioxide Level 15 MMOL/L (21-32) L Anion Gap 19 mmol/L (5-15) H Blood Urea Nitrogen 83 mg/dL (7-18) H Creatinine 7.5 MG/DL (0.55-1.30) H Estimat Glomerular Filtration Rate 6.8 mL/min (>60) Glucose Level 78 MG/DL (74-106) Hemoglobin A1c 6.4 % (4.3-6.0) H Uric Acid 7.2 MG/DL (2.6-7.2) Calcium Level 8.0 MG/DL (8.5-10.1) L Phosphorus Level 7.8 MG/DL (2.5-4.9) H Magnesium Level 2.5 MG/DL (1.8-2.4) H Iron Level 49 ug/dL (50-175) L Total Iron Binding Capacity 49 ug/dL (250-450) L Percent Iron Saturation 100 % (15-50) H Unsaturated Iron Binding 0 ug/dL (112-346) L Ferritin 1930 NG/ML (8-388) H Total Bilirubin 0.3 MG/DL (0.2-1.0) Gamma Glutamyl Transpeptidase 284 U/L (5-85) H Aspartate Amino Transf (AST/SGOT) 27 U/L (15-37) Alanine Aminotransferase (ALT/SGPT) 23 U/L (12-78) Alkaline Phosphatase 126 U/L (46-116) H Total Creatine Kinase 131 U/L (26-308) Troponin I 0.010 ng/mL (0.000-0.056) C-Reactive Protein, Quantitative 10.0 mg/dL (0.00-0.90) H Pro-B-Type Natriuretic Peptide 2218 pg/mL (0-125) H Total Protein 6.0 G/DL (6.4-8.2) L Albumin 1.3 G/DL (3.4-5.0) L Globulin 4.7 g/dL Albumin/Globulin Ratio 0.3 (1.0-2.7) L Triglycerides Level 132 MG/DL (30-150) Cholesterol Level 116 MG/DL (< 200) LDL Cholesterol 74 mg/dL (<100) HDL Cholesterol 32 MG/DL (40-60) L Cholesterol/HDL Ratio 3.6 (3.3-4.4) Vitamin B12 Level 1254 PG/ML (193-986) H Folate 5.4 NG/ML (8.6-58.9) L Thyroid Stimulating Hormone (TSH) 1.771 uiU/mL (0.358-3.740) Phenytoin (Dilantin) Level 4.6 ug/mL (10-20) L Current Medications Medications (Trade) Dose Ordered Sig/Avila Route PRN Reason Start Time Stop Time Status Last Admin Dose Admin Acetaminophen (Tylenol) 650 mg Q4HR PRN ORAL TEMP>100.5 10/02/19 03:15 Atenolol (Tenormin) 50 mg DAILY ORAL 10/02/19 09:00 11/01/19 08:59 Ceftriaxone Sodium 1 gm/ Dextrose 55 ml @ 110 mls/hr Q24H IVPB 10/03/19 03:00 10/10/19 02:59 10/03/19 03:03 Docusate Sodium (Colace) 100 mg TID ORAL 10/03/19 13:00 11/01/19 08:59 10/03/19 12:42 Folic Acid (Folate) 2 mg DAILY ORAL 10/03/19 10:00 11/02/19 09:59 Haloperidol Lactate (Haldol) 5 mg Q6H PRN IM Agitation 10/03/19 09:33 11/17/19 09:32 10/03/19 10:15 Levetiracetam (Keppra) 500 mg Q12HR ORAL 10/02/19 09:00 11/01/19 08:59 10/02/19 21:50 Levothyroxine Sodium (Synthroid) 25 mcg DAILY@0630 ORAL 10/03/19 06:30 11/02/19 06:29 10/03/19 05:58 Phenytoin (Dilantin) 100 mg Q8HR ORAL 10/02/19 09:00 11/01/19 08:59 10/03/19 05:58 Quetiapine Fumarate (SEROqueL) 25 mg Q12HR ORAL 10/03/19 09:45 11/17/19 09:44 Sevelamer Carbonate (Renvela) 1,600 mg THREE TIMES A DAY ORAL 10/03/19 13:00 01/01/20 12:59 10/03/19 12:43 Sodium Chloride 1,000 ml @ 75 mls/hr [id number] IV 10/03/19 09:57 11/02/19 09:56 10/03/19 10:15 Marie Ross M.D. October 03, 2019 13:50
--- NOTE | 2019-10-03 14:20 | Nephrology Progress Note ---
Assessment/Plan Problem List: (1) ARF (acute renal failure) (2) COVID-19 virus infection (3) Hypoalbuminemia (4) Anemia Assessment: Low MCV (5) Renal failure (ARF), acute on chronic Assessment Renal failure most likely acute superimposed on chronic 4+ proteinuria with severe hypoalbuminemia should rule out nephrotic syndrome COVID-19 virus infection UTI Anemia with low MCV, likely part due to iron deficiency Toxic metabolic encephalopathy History of seizures Plan Saini catheter, 24-hour urine collection for protein-ordered Slow Hydrate, IV 75 cc an hour Kidney ultrasound pending Avoid nephrotoxic's Urine studies Monitor renal parameters Antibiotics Continue per consultants Subjective ROS Limited/Unobtainable: No Constitutional: Reports: malaise, weakness Objective Objective Last 24 Hour Vital Signs Date Time Temp Pulse Resp B/P (MAP) Pulse Ox O2 Delivery O2 Flow Rate FiO2 10/03/19 11:42 98.4 67 21 136/72 (93) 97 10/03/19 09:00 Room Air 10/03/19 08:00 98.6 74 18 131/75 (93) 96 10/03/19 04:00 97.4 66 19 127/57 (80) 96 10/03/19 00:00 98.0 60 19 118/60 (79) 95 10/02/19 21:00 Room Air 10/02/19 20:00 97.9 64 19 122/64 (83) 96 10/02/19 16:00 98.9 79 18 134/62 (86) 96 Intake and Output 10/02/19 10/03/19 19:00 07:00 Intake Total 895 ml 805 ml Output Total 350 ml 650 ml Balance 545 ml 155 ml Intake IV Total 675 ml 805 ml Other 220 ml Output Urine Total 350 ml 650 ml # Voids 1 # Bowel Movements 1 Current Medications Medications (Trade) Dose Ordered Sig/Avila Route PRN Reason Start Time Stop Time Status Last Admin Dose Admin Acetaminophen (Tylenol) 650 mg Q4HR PRN ORAL TEMP>100.5 10/02/19 03:15 Atenolol (Tenormin) 50 mg DAILY ORAL 10/02/19 09:00 11/01/19 08:59 Ceftriaxone Sodium 1 gm/ Dextrose 55 ml @ 110 mls/hr Q24H IVPB 10/03/19 03:00 10/10/19 02:59 10/03/19 03:03 Docusate Sodium (Colace) 100 mg TID ORAL 10/03/19 13:00 11/01/19 08:59 10/03/19 12:42 Folic Acid (Folate) 2 mg DAILY ORAL 10/03/19 10:00 11/02/19 09:59 Haloperidol Lactate (Haldol) 5 mg Q6H PRN IM Agitation 10/03/19 09:33 11/17/19 09:32 10/03/19 10:15 Levetiracetam (Keppra) 500 mg Q12HR ORAL 10/02/19 09:00 11/01/19 08:59 10/02/19 21:50 Levothyroxine Sodium (Synthroid) 25 mcg DAILY@0630 ORAL 10/03/19 06:30 11/02/19 06:29 10/03/19 05:58 Phenytoin (Dilantin) 100 mg Q8HR ORAL 10/02/19 09:00 11/01/19 08:59 10/03/19 05:58 Quetiapine Fumarate (SEROqueL) 25 mg Q12HR ORAL 10/03/19 09:45 11/17/19 09:44 Sevelamer Carbonate (Renvela) 1,600 mg THREE TIMES A DAY ORAL 10/03/19 13:00 01/01/20 12:59 10/03/19 12:43 Sodium Chloride 1,000 ml @ 75 mls/hr [id number] IV 10/03/19 09:57 11/02/19 09:56 10/03/19 10:15 Laboratory Tests 10/03/19 08:30: White Blood Count 13.7H, Red Blood Count 4.03L, Hemoglobin 9.7L, Hematocrit 30.2L, Mean Corpuscular Volume 75L, Mean Corpuscular Hemoglobin 24.1L, Mean Corpuscular Hemoglobin Concent 32.2, Red Cell Distribution Width 11.8, Platelet Count 320, Mean Platelet Volume 4.8L, Neutrophils (%) (Auto) 69.7, Lymphocytes ( %) (Auto) 16.3L, Monocytes (%) (Auto) 10.9H, Eosinophils (%) (Auto) 2.2, Basophils (%) (Auto) 0.9, D-Dimer 2.63H, Sodium Level 147H, Potassium Level 3.9 , Chloride Level 114H, Carbon Dioxide Level 15L, Anion Gap 19H, Blood Urea Nitrogen 83H, Creatinine 7.5H, Estimat Glomerular Filtration Rate 6.8, Glucose Level 78, Hemoglobin A1c 6.4H, Uric Acid 7.2, Calcium Level 8.0L, Phosphorus Level 7.8H, Magnesium Level 2.5H, Iron Level 49L, Total Iron Binding Capacity 49L, Percent Iron Saturation 100H, Unsaturated Iron Binding 0L, Ferritin 1930H, Total Bilirubin 0.3, Gamma Glutamyl Transpeptidase 284H, Aspartate Amino Transf (AST/SGOT) 27, Alanine Aminotransferase (ALT/SGPT) 23, Alkaline Phosphatase 126H , Total Creatine Kinase 131, Troponin I 0.010, C-Reactive Protein, Quantitative 10.0H, Pro-B-Type Natriuretic Peptide 2218H, Total Protein 6.0L, Albumin 1.3L, Globulin 4.7, Albumin/Globulin Ratio 0.3L, Triglycerides Level 132, Cholesterol Level 116, LDL Cholesterol 74, HDL Cholesterol 32L, Cholesterol/HDL Ratio 3.6, Vitamin B12 Level 1254H, Folate 5.4L, Thyroid Stimulating Hormone (TSH) 1.771, Phenytoin (Dilantin) Level 4.6L Height (Feet): 5 Height (Inches): 5.00 Weight (Pounds): 164 General Appearance: no apparent distress Cardiovascular: normal rate Respiratory/Chest: decreased breath sounds Abdomen: soft Yinka Boston MD October 03, 2019 14:20
[2019-10-03] MEDS ORDERED: Lidocaine 1% Plain 30 ml INJ PRN (15:13)
[2019-10-03] MEDS ORDERED: Heparin1,000 units/500ml Premix(Conc:2 units/ml) IV PRN (15:13)
[2019-10-03 16:00] VITALS: BP 155/76
--- NOTE | 2019-10-03 16:24 | NUR ---
NURSE NOTES: ORDER FOR 24 HOUR URINE PROTEIN COLLECTION NOTED. STARTED AT 10/03/2019 AT 1600HRS. PADRON BAG PLACED IN ICE AND URINE COLLECTION CONTAINER PLACED IN ICE.
--- NOTE | 2019-10-03 16:43 | NUR ---
NURSE NOTES: UNABLE TO INSERT IV ACCESS. RN AND CRN ATTEMPTED WITH VEIN FINDER. DR LESTER WAS MADE AWARE WITH NEW ORDER FOR PICC INSERTION. ORDER ENTERED. RN OBTAINED TELEPHONE CONSENT FROM DAUGHTER LIZANDRO GAMINO, WITH Harry MANCERA RN WITNESS. CONSENT SIGNED AND PLACED IN PT'S CHART.
--- NOTE | 2019-10-03 19:09 | NUR ---
HAND-OFF: Report given to Harry ABARCA RN.
--- NOTE | 2019-10-03 19:30 | NUR ---
NURSE NOTES: Received patient in no apparent distress. A&OX1, confusion. Saini draining well by gravity, yellow urine noted. On 24hr urine collection. Bed in lowest position. Call light within reach. Will continue to monitor.
[2019-10-03 20:00] VITALS: BP 142/76
[2019-10-04] VITALS: BP 106/62
--- NOTE | 2019-10-04 00:44 | Consultation ---
DATE OF CONSULTATION: HISTORY OF PRESENT ILLNESS: This is a 59-year-old female who is well known to the physician from was admitted to the hospital due to COVID-19. The patient is a 59-year-old female with a history of failure to thrive, UTI, and COVID-19, who has been admitted to the hospital for medical stabilization. The patient has been severely agitated and has not been eating. Upon evaluation, the patient was on bilateral soft restraints, screaming, severely agitated, not able to be engaged. PAST PSYCHIATRIC HISTORY: Significant for depression and anxiety at baseline. The patient is less confused. PAST MEDICAL HISTORY: Significant for obesity, hypertension, diabetes. ALLERGIES: No known drug allergies. SUBSTANCE ABUSE HISTORY: No known history of illicit drug use or alcohol. MENTAL STATUS EXAMINATION: The patient is alert, oriented to time, self. Uncooperative. . Mood was agitated. Affect is flat. Thought process, there is a paucity of thought content. The patient was not suicidal or homicidal. Cognition is impaired. Insight and judgment impaired. ASSESSMENT: Charlemont I Acute encephalopathy. Major depressive disorder. Charlemont II Deferred. Charlemont III As above. Charlemont IV Low. Charlemont V 20. PLAN: 1. Seroquel 25 mg p.o. b.i.d. 2. Haldol p.r.n. 3. Discussed with the nurse. Alex Kingsley M.D. DR: ZOË JOB#: [id number] CC:
[2019-10-04 04:00] VITALS: BP 123/55
[2019-10-04] MEDS: cefTRIAXone 1 GM in D5W 55 ML IVPB SCH (04:22)
[2019-10-04] MEDS: Levothyroxine 25mcg tab ORAL SCH (05:46)
[2019-10-04 06:43] LABS: BASOPHILS % (AUTO) 0.8 % (0.0-2.0); EOSINOPHILS % (AUTO) 1.8 % (0.0-3.0); HEMATOCRIT 32.9 % (37.0-47.0); LYMPHOCYTES % (AUTO) 19.2 % (20.0-45.0); MEAN CORPUSCULAR VOLUME 75 FL (80-99); MONOCYTES % (AUTO) 11.2 % (1.0-10.0); NEUTROPHILS % (AUTO) 67.1 % (45.0-75.0); PLATELET COUNT 495 K/UL (150-450); RED BLOOD COUNT 4.39 M/UL (4.20-5.40); RED CELL DISTRIBUTION WIDTH 12.3 % (11.6-14.8); WHITE BLOOD COUNT 15.8 K/UL (4.8-10.8)
[2019-10-04 07:08] LABS: ALANINE AMINOTRANSFERASE 27 U/L (12-78); ALBUMIN 1.2 G/DL (3.4-5.0); ALBUMIN/GLOBULIN RATIO 0.2 (1.0-2.7); ALKALINE PHOSPHATASE 145 U/L (46-116); ANION GAP 19 mmol/L (5-15); ASPARTATE AMINO TRANSFERASE 45 U/L (15-37); BILIRUBIN,TOTAL 0.5 MG/DL (0.2-1.0); BLOOD UREA NITROGEN 72 mg/dL (7-18); CALCIUM 8.1 MG/DL (8.5-10.1); CARBON DIOXIDE 16 MMOL/L (21-32); CHLORIDE 114 MMOL/L (98-107); CREATININE 7.2 MG/DL (0.55-1.30); POTASSIUM 4.8 MMOL/L (3.5-5.1); SODIUM 149 MMOL/L (136-145)
--- NOTE | 2019-10-04 07:08 | NUR ---
HAND-OFF: Report given to Ashvin Sharif RN.
[2019-10-04 08:00] VITALS: BP 123/76
[2019-10-04] MEDS: Docusate 100mg cap ORAL SCH ×3 (08:09→17:30)
[2019-10-04] MEDS ORDERED: Sodium Citrate 30ml ORAL SCH (09:15)
--- NOTE | 2019-10-04 09:33 | NUR ---
CASE MANAGEMENT:REVIEW 10/04/19 SI: COVID POSITIVE. AC/CHR RENAL FAILURE 98.0 93 20 123/76 92% ON RA WBC+15.8 NA+149 BUN+72 CR+7.2 IS: IVF@75/HR IV ROCEPHIN Q24 BICITRA PO Q8HRS DILANTIN PO QHS RENVELA PO TID FOLATE PO QD SEROQUEL PO Q12 SYNTHROID PO QD ATENOLOL PO QD KEPPRA PO Q12 : MED/SURG STATUS 4 EAST DCP: FROM [facility]
--- NOTE | 2019-10-04 09:40 | NUR ---
DISCHARGE PLANNING COVID 19 DETECTED NOT READY FOR DISCHARGE D/T WBC+15.8 BUN+72 CR+7.2 LOW GRADE TEMP ON 10/02 ~ 99.3
--- NOTE | 2019-10-04 10:39 | Pulmonology Progress Note ---
Subjective ROS Limited/Unobtainable: No Interval Events: none new Constitutional: Reports: no symptoms HEENT: Repors: no symptoms Respiratory: Reports: no symptoms Cardiovascular: Reports: no symptoms Allergies: Coded Allergies: No Known Allergies (Unverified , 10/02/19) All Systems: reviewed and negative except above Objective Last 24 Hour Vital Signs Date Time Temp Pulse Resp B/P (MAP) Pulse Ox O2 Delivery O2 Flow Rate FiO2 10/04/19 09:00 Room Air 10/04/19 08:09 82 123/55 10/04/19 08:00 98.0 93 20 123/76 (92) 92 10/04/19 04:00 98.0 82 21 123/55 (77) 98 10/04/19 00:00 97.9 95 19 106/62 (77) 97 10/03/19 20:29 Room Air 10/03/19 20:00 99.3 93 19 142/76 (98) 96 10/03/19 16:00 97.2 93 18 155/76 (102) 96 10/03/19 11:42 98.4 67 21 136/72 (93) 97 Intake and Output 10/03/19 10/04/19 19:00 07:00 Intake Total 450 ml 445 ml Output Total 800 ml 1000 ml Balance -350 ml -555 ml Intake Oral 300 ml 240 ml IV Total 150 ml 205 ml Output Urine Total 800 ml 1000 ml # Voids 1 General Appearance: no acute distress HEENT: normocephalic Respiratory/Chest: chest wall non-tender, lungs clear Cardiovascular: normal peripheral pulses Abdomen: normal bowel sounds Microbiology Date/Time Source Procedure Growth Status 10/02/19 01:25 Blood Blood Culture - Preliminary NO GROWTH AFTER 48 HOURS Resulted 10/02/19 01:10 Blood Blood Culture - Preliminary NO GROWTH AFTER 48 HOURS Resulted 10/02/19 16:40 Nasopharynx Coronavirus COVID-19 PCR (RUCHI) - Final Complete 10/02/19 01:10 Urine,Clean Catch Urine Culture - Preliminary Gram Negative Bacillus 1 Resulted 10/02/19 01:10 Rectum - Final NO CARBAPENEM-RESISTANT ENTEROBACTERI... Complete 10/02/19 01:10 Rectum VRE Culture - Final NO VANCOMYCIN RESISTANT ENTEROCOCCUS ... Complete Laboratory Tests 10/04/19 04:00: White Blood Count 15.8H, Red Blood Count 4.39, Hemoglobin 11.0L, Hematocrit 32.9L, Mean Corpuscular Volume 75L, Mean Corpuscular Hemoglobin 25.1L, Mean Corpuscular Hemoglobin Concent 33.5, Red Cell Distribution Width 12.3, Platelet Count 495#H, Mean Platelet Volume 5.4L, Neutrophils (%) (Auto) 67.1, Lymphocytes (%) (Auto) 19.2L, Monocytes (%) (Auto) 11.2H, Eosinophils (%) (Auto ) 1.8, Basophils (%) (Auto) 0.8, Sodium Level 149H, Potassium Level 4.8, Chloride Level 114H, Carbon Dioxide Level 16L, Anion Gap 19H, Blood Urea Nitrogen 72H, Creatinine 7.2H, Estimat Glomerular Filtration Rate 7.2, Glucose Level 85, Uric Acid 6.6, Calcium Level 8.1L, Phosphorus Level 7.0H, Magnesium Level 2.5H, Total Bilirubin 0.5, Aspartate Amino Transf (AST/SGOT) 45H, Alanine Aminotransferase (ALT/SGPT) 27, Alkaline Phosphatase 145H, Total Protein 7.2, Albumin 1.2L, Globulin 6.0, Albumin/Globulin Ratio 0.2L Current Medications Medications (Trade) Dose Ordered Sig/Avila Route PRN Reason Start Time Stop Time Status Last Admin Dose Admin Acetaminophen (Tylenol) 650 mg Q4HR PRN ORAL TEMP>100.5 10/02/19 03:15 Atenolol (Tenormin) 50 mg DAILY ORAL 10/02/19 09:00 11/01/19 08:59 10/04/19 08:09 Ceftriaxone Sodium 1 gm/ Dextrose 55 ml @ 110 mls/hr Q24H IVPB 10/03/19 03:00 10/10/19 02:59 10/04/19 04:22 Chlorhexidine Gluconate (Marlyn-Hex 2%) 1 applic DAILY@2000 TOPIC 10/04/19 20:00 01/02/20 19:59 Docusate Sodium (Colace) 100 mg TID ORAL 10/03/19 13:00 11/01/19 08:59 10/04/19 08:09 Folic Acid (Folate) 2 mg DAILY ORAL 10/03/19 10:00 11/02/19 09:59 10/04/19 08:08 Haloperidol Lactate (Haldol) 5 mg Q6H PRN IM Agitation 10/03/19 09:33 11/17/19 09:32 10/03/19 10:15 Levetiracetam (Keppra) 500 mg Q12HR ORAL 10/02/19 09:00 11/01/19 08:59 10/04/19 08:09 Levothyroxine Sodium (Synthroid) 25 mcg DAILY@0630 ORAL 10/03/19 06:30 11/02/19 06:29 10/04/19 05:46 Phenytoin (Dilantin) 300 mg QHS ORAL 10/03/19 21:00 11/01/19 08:59 10/03/19 20:21 Quetiapine Fumarate (SEROqueL) 25 mg Q12HR ORAL 10/03/19 09:45 11/17/19 09:44 10/04/19 08:09 Sevelamer Carbonate (Renvela) 1,600 mg THREE TIMES A DAY ORAL 10/03/19 13:00 01/01/20 12:59 10/04/19 08:09 Sodium Chloride 1,000 ml @ 75 mls/hr [id number] IV 10/03/19 09:57 11/02/19 09:56 10/04/19 04:22 Sodium Citrate (Bicitra) 30 ml EVERY 8 HOURS ORAL 10/04/19 14:00 11/03/19 13:59 Sodium Citrate (Bicitra) 30 ml ONCE ORAL 10/04/19 09:15 10/04/19 11:00 Assessment/Plan Assessment/Plan IMPRESSION: 1. Acute on chronic renal failure. 2. CHF. 3. Hyperlipidemia. 4. Hypothyroidism. 5. GERD. 6. Encephalopathy. 7. Positive COVID-19. 8. Seizure disorder. DISCUSSION: Continue IV fluids. Antibiotics per ID. Currently saturating well on low-flow oxygen and room air. I will follow carefully. Jaleel Du Omar Syed MD October 04, 2019 10:39
--- NOTE | 2019-10-04 11:41 | NUR ---
NURSE NOTES: RN SPOKE TO RADIOLOGY. INTERVENTIONAL RADIOLOGY AWAY FROM DESK. RADIOLOGY UNSURE IF PICC PROCEDURES ARE BEING DONE TODAY. RN TO FOLLOW UP. PT CALM AND RESTING IN BED. PT WAS COMBATIVE AND RESISTIVE EARLIER DURING US RENAL. PT IN HIGH GONZALEZ'S POSITION WITH BED IN LOWEST POSITION. BEDSIDE RAILS X3 RAISED AND BED ALARM ON. RN CONTINUING TO COLLECT 24 HOUR URINE PROTEIN. PADRON BAG AND CONTAINER RESTING ON ICE. WILL CONTINUE TO MONITOR.
--- NOTE | 2019-10-04 11:44 | NUR ---
NURSE NOTES: RN SPOKE TO ED IN INTERVENTIONAL RADIOLOGY. PICC PROCEDURES WILL BE DONE TOMORROW.
[2019-10-04 12:00] VITALS: BP 121/74
--- NOTE | 2019-10-04 12:19 | Infectious Diseases Prog Note ---
Assessment/Plan Assessment/Plan Assessment: COVID positive (tested positive on 09/20)-still positive -10/01 CXR: There is some crowding of bronchovascular markings at the left lung base. Left costophrenic sulcus is obscured, small pleural effusion likely. SARS-COV2 PCR + UTI -u/a wbc tnct, nit +, leuk +2; ucx >100k GNR -Bcx NTD Afebrile Leukocytosis; increased BOB on CKD (cr 10.4)- last Cr available was 1.4 on 2005- improving CHF HLD hypothyroidism GERD seizure disorder [place] resident Plan: -Switc empiric Ceftriaxone #3 to Meropenem pending Ucx -10/01 SP Azithromycin x1 -f/u cx -Monitor CBC/CMP, temperatures -COVID19 isolation; still positive on repeat test on 10/01 -Nephro f/u -aspiration precautions Thank you for consulting [facility]. Will continue to follow along with you. Discussed with RN, Subjective Allergies: Coded Allergies: No Known Allergies (Unverified , 10/02/19) Subjective afebrile at RA wbc increased Cr improved, still on 7s COVID still positive Objective Vital Signs Last 24 Hour Vital Signs Date Time Temp Pulse Resp B/P (MAP) Pulse Ox O2 Delivery O2 Flow Rate FiO2 10/04/19 09:00 Room Air 10/04/19 08:09 82 123/55 10/04/19 08:00 98.0 93 20 123/76 (92) 92 10/04/19 04:00 98.0 82 21 123/55 (77) 98 10/04/19 00:00 97.9 95 19 106/62 (77) 97 10/03/19 20:29 Room Air 10/03/19 20:00 99.3 93 19 142/76 (98) 96 10/03/19 16:00 97.2 93 18 155/76 (102) 96 Height (Feet): 5 Height (Inches): 5.00 Weight (Pounds): 164 Objective not examined to limit COVID19 exposure Microbiology Date/Time Source Procedure Growth Status 10/02/19 01:25 Blood Blood Culture - Preliminary NO GROWTH AFTER 48 HOURS Resulted 10/02/19 01:10 Blood Blood Culture - Preliminary NO GROWTH AFTER 48 HOURS Resulted 10/02/19 16:40 Nasopharynx Coronavirus COVID-19 PCR ([facility]I) - Final Complete 10/02/19 01:10 Nasal Nares MRSA Culture - Final NO METHICILLIN RESISTANT STAPH AUREUS... Complete 10/02/19 01:10 Urine,Clean Catch Urine Culture - Preliminary Gram Negative Bacillus 1 Resulted 10/02/19 01:10 Rectum - Final NO CARBAPENEM-RESISTANT ENTEROBACTERI... Complete 10/02/19 01:10 Rectum VRE Culture - Final NO VANCOMYCIN RESISTANT ENTEROCOCCUS ... Complete Laboratory Tests Test 10/04/19 04:00 White Blood Count 15.8 K/UL (4.8-10.8) H Red Blood Count 4.39 M/UL (4.20-5.40) Hemoglobin 11.0 G/DL (12.0-16.0) L Hematocrit 32.9 % (37.0-47.0) L Mean Corpuscular Volume 75 FL (80-99) L Mean Corpuscular Hemoglobin 25.1 PG (27.0-31.0) L Mean Corpuscular Hemoglobin Concent 33.5 G/DL (32.0-36.0) Red Cell Distribution Width 12.3 % (11.6-14.8) Platelet Count 495 K/UL (150-450) #H Mean Platelet Volume 5.4 FL (6.5-10.1) L Neutrophils (%) (Auto) 67.1 % (45.0-75.0) Lymphocytes (%) (Auto) 19.2 % (20.0-45.0) L Monocytes (%) (Auto) 11.2 % (1.0-10.0) H Eosinophils (%) (Auto) 1.8 % (0.0-3.0) Basophils (%) (Auto) 0.8 % (0.0-2.0) Sodium Level 149 MMOL/L (136-145) H Potassium Level 4.8 MMOL/L (3.5-5.1) Chloride Level 114 MMOL/L (98-107) H Carbon Dioxide Level 16 MMOL/L (21-32) L Anion Gap 19 mmol/L (5-15) H Blood Urea Nitrogen 72 mg/dL (7-18) H Creatinine 7.2 MG/DL (0.55-1.30) H Estimat Glomerular Filtration Rate 7.2 mL/min (>60) Glucose Level 85 MG/DL (74-106) Uric Acid 6.6 MG/DL (2.6-7.2) Calcium Level 8.1 MG/DL (8.5-10.1) L Phosphorus Level 7.0 MG/DL (2.5-4.9) H Magnesium Level 2.5 MG/DL (1.8-2.4) H Total Bilirubin 0.5 MG/DL (0.2-1.0) Aspartate Amino Transf (AST/SGOT) 45 U/L (15-37) H Alanine Aminotransferase (ALT/SGPT) 27 U/L (12-78) Alkaline Phosphatase 145 U/L (46-116) H Total Protein 7.2 G/DL (6.4-8.2) Albumin 1.2 G/DL (3.4-5.0) L Globulin 6.0 g/dL Albumin/Globulin Ratio 0.2 (1.0-2.7) L Current Medications Medications (Trade) Dose Ordered Sig/Avila Route PRN Reason Start Time Stop Time Status Last Admin Dose Admin Acetaminophen (Tylenol) 650 mg Q4HR PRN ORAL TEMP>100.5 10/02/19 03:15 Atenolol (Tenormin) 50 mg DAILY ORAL 10/02/19 09:00 11/01/19 08:59 10/04/19 08:09 Ceftriaxone Sodium 1 gm/ Dextrose 55 ml @ 110 mls/hr Q24H IVPB 10/03/19 03:00 10/10/19 02:59 10/04/19 04:22 Chlorhexidine Gluconate (Marlyn-Hex 2%) 1 applic DAILY@2000 TOPIC 10/04/19 20:00 01/02/20 19:59 Docusate Sodium (Colace) 100 mg TID ORAL 10/03/19 13:00 11/01/19 08:59 10/04/19 08:09 Folic Acid (Folate) 2 mg DAILY ORAL 10/03/19 10:00 11/02/19 09:59 10/04/19 08:08 Haloperidol Lactate (Haldol) 5 mg Q6H PRN IM Agitation 10/03/19 09:33 11/17/19 09:32 10/03/19 10:15 Levetiracetam (Keppra) 500 mg Q12HR ORAL 10/02/19 09:00 11/01/19 08:59 10/04/19 08:09 Levothyroxine Sodium (Synthroid) 25 mcg DAILY@0630 ORAL 10/03/19 06:30 11/02/19 06:29 10/04/19 05:46 Phenytoin (Dilantin) 300 mg QHS ORAL 10/03/19 21:00 11/01/19 08:59 10/03/19 20:21 Quetiapine Fumarate (SEROqueL) 25 mg Q12HR ORAL 10/03/19 09:45 11/17/19 09:44 10/04/19 08:09 Sevelamer Carbonate (Renvela) 1,600 mg THREE TIMES A DAY ORAL 10/03/19 13:00 01/01/20 12:59 10/04/19 08:09 Sodium Chloride 1,000 ml @ 75 mls/hr [id number] IV 10/03/19 09:57 11/02/19 09:56 10/04/19 04:22 Sodium Citrate (Bicitra) 30 ml EVERY 8 HOURS ORAL 10/04/19 14:00 11/03/19 13:59 Marie Ross M.D. October 04, 2019 12:19
--- NOTE | 2019-10-04 12:51 | Nephrology Progress Note ---
Assessment/Plan Problem List: (1) ARF (acute renal failure) Assessment: Serum creatinine slightly lower (2) COVID-19 virus infection (3) Hypoalbuminemia (4) Anemia Assessment: Low MCV (5) Renal failure (ARF), acute on chronic (6) Diabetes Assessment: Hemoglobin A1c is 6.4 (7) Seizure disorder Assessment Renal failure most likely acute superimposed on chronic 4+ proteinuria with severe hypoalbuminemia should rule out nephrotic syndrome COVID-19 virus infection UTI Anemia with low MCV, likely part due to iron deficiency Toxic metabolic encephalopathy History of seizures Plan Serum creatinine was slightly lower Saini catheter, 24-hour urine collection for protein-ordered Slow Hydrate, IV 75 cc an hour Kidney ultrasound pending Avoid nephrotoxic's Urine studies Monitor renal parameters Antibiotics Continue per consultants Subjective ROS Limited/Unobtainable: No Constitutional: Reports: malaise Objective Objective Last 24 Hour Vital Signs Date Time Temp Pulse Resp B/P (MAP) Pulse Ox O2 Delivery O2 Flow Rate FiO2 10/04/19 09:00 Room Air 10/04/19 08:09 82 123/55 10/04/19 08:00 98.0 93 20 123/76 (92) 92 10/04/19 04:00 98.0 82 21 123/55 (77) 98 10/04/19 00:00 97.9 95 19 106/62 (77) 97 10/03/19 20:29 Room Air 10/03/19 20:00 99.3 93 19 142/76 (98) 96 10/03/19 16:00 97.2 93 18 155/76 (102) 96 Intake and Output 10/03/19 10/04/19 19:00 07:00 Intake Total 450 ml 445 ml Output Total 800 ml 1000 ml Balance -350 ml -555 ml Intake Oral 300 ml 240 ml IV Total 150 ml 205 ml Output Urine Total 800 ml 1000 ml # Voids 1 Laboratory Tests 10/04/19 04:00: White Blood Count 15.8H, Red Blood Count 4.39, Hemoglobin 11.0L, Hematocrit 32.9L, Mean Corpuscular Volume 75L, Mean Corpuscular Hemoglobin 25.1L, Mean Corpuscular Hemoglobin Concent 33.5, Red Cell Distribution Width 12.3, Platelet Count 495#H, Mean Platelet Volume 5.4L, Neutrophils (%) (Auto) 67.1, Lymphocytes (%) (Auto) 19.2L, Monocytes (%) (Auto) 11.2H, Eosinophils (%) (Auto ) 1.8, Basophils (%) (Auto) 0.8, Sodium Level 149H, Potassium Level 4.8, Chloride Level 114H, Carbon Dioxide Level 16L, Anion Gap 19H, Blood Urea Nitrogen 72H, Creatinine 7.2H, Estimat Glomerular Filtration Rate 7.2, Glucose Level 85, Uric Acid 6.6, Calcium Level 8.1L, Phosphorus Level 7.0H, Magnesium Level 2.5H, Total Bilirubin 0.5, Aspartate Amino Transf (AST/SGOT) 45H, Alanine Aminotransferase (ALT/SGPT) 27, Alkaline Phosphatase 145H, Total Protein 7.2, Albumin 1.2L, Globulin 6.0, Albumin/Globulin Ratio 0.2L Height (Feet): 5 Height (Inches): 5.00 Weight (Pounds): 164 General Appearance: no apparent distress Cardiovascular: tachycardia Respiratory/Chest: decreased breath sounds Objective No change Yinka Boston MD October 04, 2019 12:51
--- NOTE | 2019-10-04 13:10 | General Progress Note ---
Assessment/Plan Problem List: (1) Anemia ICD Codes: D64.9 - Anemia, unspecified SNOMED: 282294627 Qualifiers: Qualified Codes: D64.9 - Anemia, unspecified (2) Diabetes ICD Codes: E11.9 - Type 2 diabetes mellitus without complications SNOMED: 86707868 (3) Malnutrition ICD Codes: E46 - Unspecified protein-calorie malnutrition SNOMED: 43048951 (4) Weak ICD Codes: R53.1 - Weakness SNOMED: 37342517 (5) Sepsis ICD Codes: A41.9 - Sepsis, unspecified organism SNOMED: 74582668 (6) UTI (urinary tract infection) ICD Codes: N39.0 - Urinary tract infection, site not specified SNOMED: 77302900 Qualifiers: Qualified Codes: N30.00 - Acute cystitis without hematuria (7) HTN (hypertension) ICD Codes: I10 - Essential (primary) hypertension SNOMED: 08837362 (8) ARF (acute renal failure) ICD Codes: N17.9 - Acute kidney failure, unspecified SNOMED: 03670376 Qualifiers: Qualified Codes: N17.9 - Acute kidney failure, unspecified (9) Hypothyroid ICD Codes: E03.9 - Hypothyroidism, unspecified SNOMED: 82042843 (10) FTT (failure to thrive) in adult ICD Codes: R62.7 - Adult failure to thrive SNOMED: 733321553 (11) COVID-19 virus infection ICD Codes: U07.1 - COVID-19 SNOMED: 064969657 Status: unchanged Assessment/Plan: pt diet abx cbc bmp am Subjective Constitutional: Reports: weakness Allergies: Coded Allergies: No Known Allergies (Unverified , 10/02/19) All Systems: reviewed and negative except above Subjective sleepy calm Objective Last 24 Hour Vital Signs Date Time Temp Pulse Resp B/P (MAP) Pulse Ox O2 Delivery O2 Flow Rate FiO2 10/04/19 09:00 Room Air 10/04/19 08:09 82 123/55 10/04/19 08:00 98.0 93 20 123/76 (92) 92 10/04/19 04:00 98.0 82 21 123/55 (77) 98 10/04/19 00:00 97.9 95 19 106/62 (77) 97 10/03/19 20:29 Room Air 10/03/19 20:00 99.3 93 19 142/76 (98) 96 10/03/19 16:00 97.2 93 18 155/76 (102) 96 Intake and Output 10/03/19 10/04/19 19:00 07:00 Intake Total 450 ml 445 ml Output Total 800 ml 1000 ml Balance -350 ml -555 ml Intake Oral 300 ml 240 ml IV Total 150 ml 205 ml Output Urine Total 800 ml 1000 ml # Voids 1 Laboratory Tests 10/04/19 04:00: White Blood Count 15.8H, Red Blood Count 4.39, Hemoglobin 11.0L, Hematocrit 32.9L, Mean Corpuscular Volume 75L, Mean Corpuscular Hemoglobin 25.1L, Mean Corpuscular Hemoglobin Concent 33.5, Red Cell Distribution Width 12.3, Platelet Count 495#H, Mean Platelet Volume 5.4L, Neutrophils (%) (Auto) 67.1, Lymphocytes (%) (Auto) 19.2L, Monocytes (%) (Auto) 11.2H, Eosinophils (%) (Auto ) 1.8, Basophils (%) (Auto) 0.8, Sodium Level 149H, Potassium Level 4.8, Chloride Level 114H, Carbon Dioxide Level 16L, Anion Gap 19H, Blood Urea Nitrogen 72H, Creatinine 7.2H, Estimat Glomerular Filtration Rate 7.2, Glucose Level 85, Uric Acid 6.6, Calcium Level 8.1L, Phosphorus Level 7.0H, Magnesium Level 2.5H, Total Bilirubin 0.5, Aspartate Amino Transf (AST/SGOT) 45H, Alanine Aminotransferase (ALT/SGPT) 27, Alkaline Phosphatase 145H, Total Protein 7.2, Albumin 1.2L, Globulin 6.0, Albumin/Globulin Ratio 0.2L General Appearance: lethargic EENT: normal ENT inspection Neck: normal alignment Cardiovascular: normal rate, regular rhythm Respiratory/Chest: no respiratory distress, no accessory muscle use Extremities: normal inspection Skin: normal pigmentation Dustin Leijag October 04, 2019 13:09
[2019-10-04] MEDS: Sodium Citrate 30ml ORAL SCH ×2 (14:39→21:12)
[2019-10-04] MEDS: Meropenem 500 MG in NS 55 ML IVPB SCH (14:53)
--- NOTE | 2019-10-04 14:54 | NUR ---
PIPING MANAGER NOTES RECEIVED A CALL FROM PATIENTS DAUGHTER LIZANDRO, [place] SHE WANTS HER MOTHER TO RETURN HOME WITH HER. [place] [address]ESS [address] [place] [id number]. LIZANDRO GAMINO [phone]
[2019-10-04 16:00] VITALS: BP 126/80
--- NOTE | 2019-10-04 19:20 | NUR ---
HAND-OFF: Report given to Markus PATINO RN.
--- NOTE | 2019-10-04 19:30 | NUR ---
NURSE NOTES: Patient awake in bed, no signs of pain, no SOB noted at this time. With Saini catheter, intact and connected to drainage bag. IV access on the right arm. Call light in reach. Bed in lowest, lock engaged and alarm on. Will continue to monitor.
[2019-10-04 20:00] VITALS: BP 146/83
[2019-10-04] MEDS: Dyna-Hex 2% Top Sol 2oz TOPIC SCH (20:00)
[2019-10-04] MEDS: Phenytoin 100mg cap ORAL SCH (21:09)
--- NOTE | 2019-10-04 23:23 | Psych Consult Progress Note ---
Psychiatry Progress Note Psychiatry Progress Note Subjective the pt is agitate and yelling Medications Current Medications Medications (Trade) Dose Ordered Sig/Avila Route PRN Reason Start Time Stop Time Status Last Admin Dose Admin Acetaminophen (Tylenol) 650 mg Q4HR PRN ORAL TEMP>100.5 10/02/19 03:15 Atenolol (Tenormin) 50 mg DAILY ORAL 10/02/19 09:00 11/01/19 08:59 10/04/19 08:09 Chlorhexidine Gluconate (Marlyn-Hex 2%) 1 applic DAILY@2000 TOPIC 10/04/19 20:00 01/02/20 19:59 Dextrose 1,000 ml @ 75 mls/hr [id number] IV 10/04/19 13:30 11/03/19 13:29 10/04/19 13:17 Docusate Sodium (Colace) 100 mg TID ORAL 10/03/19 13:00 11/01/19 08:59 10/04/19 17:30 Folic Acid (Folate) 2 mg DAILY ORAL 10/03/19 10:00 11/02/19 09:59 10/04/19 08:08 Haloperidol Lactate (Haldol) 5 mg Q6H PRN IM Agitation 10/03/19 09:33 11/17/19 09:32 10/03/19 10:15 Levetiracetam (Keppra) 500 mg Q12HR ORAL 10/02/19 09:00 11/01/19 08:59 10/04/19 21:10 Levothyroxine Sodium (Synthroid) 25 mcg DAILY@0630 ORAL 10/03/19 06:30 11/02/19 06:29 10/04/19 05:46 Meropenem 500 mg/ Sodium Chloride 55 ml @ 110 mls/hr Q24H IVPB 10/04/19 14:00 10/09/19 13:59 10/04/19 14:53 Phenytoin (Dilantin) 300 mg QHS ORAL 10/03/19 21:00 11/01/19 08:59 10/04/19 21:09 Quetiapine Fumarate (SEROqueL) 25 mg Q12HR ORAL 10/03/19 09:45 11/17/19 09:44 10/04/19 21:11 Sevelamer Carbonate (Renvela) 1,600 mg THREE TIMES A DAY ORAL 10/03/19 13:00 01/01/20 12:59 10/04/19 17:30 Sodium Citrate (Bicitra) 30 ml EVERY 8 HOURS ORAL 10/04/19 14:00 11/03/19 13:59 10/04/19 21:12 Neurological/Psychiatric: Reports: anxiety, depressed, emotional problems Allergies: Coded Allergies: No Known Allergies (Unverified , 10/02/19) Objective Data Height (Feet): 5 Height (Inches): 5.00 Weight (Pounds): 164 Additional Comments: alert, oriented to time, self. Uncooperative. Mood was agitated. Affect is flat. Thought process, there is a paucity of thought content. The patient was not suicidal or homicidal. Cognition is impaired. Insight and judgment impaired. Assessment/Plan [place] I: [place] Acute encephalopathy. Major depressive disorder. Status: unchanged Assessment/Plan: PLAN: 1. Seroquel 25 mg p.o. b.i.d. 2. Haldol p.r.n. 3. Discussed with the nurse. Alex Kingsley MD October 04, 2019 23:23
[2019-10-05] VITALS: BP 153/81
[2019-10-05 04:00] VITALS: BP 145/89
[2019-10-05] MEDS: Levothyroxine 25mcg tab ORAL SCH (05:00)
[2019-10-05] MEDS: Sodium Citrate 30ml ORAL SCH ×3 (05:00→22:00)
--- NOTE | 2019-10-05 05:58 | NUR ---
NURSE NOTES: Unable to obtain blood. Patient is a hardstick. Ifeoma of lab made aware.
--- NOTE | 2019-10-05 07:10 | NUR ---
NURSE NOTES: Received patient in bed. Awake, Alert x1. On room air. No signs of pain noted at this time. F/c in place draining yellow urine. IV in the Left hand, site intact infusing IVF well. Side rails padded for safety. Bed low and locked, call light within reach.
--- NOTE | 2019-10-05 07:12 | NUR ---
HAND-OFF: Report given to YE Zhong.
[2019-10-05 08:00] VITALS: BP 140/86
[2019-10-05] MEDS: Docusate 100mg cap ORAL SCH ×3 (09:21→18:38)
--- NOTE | 2019-10-05 09:36 | General Progress Note ---
Assessment/Plan Problem List: (1) Anemia ICD Codes: D64.9 - Anemia, unspecified SNOMED: 836633837 Qualifiers: Qualified Codes: D64.9 - Anemia, unspecified (2) Diabetes ICD Codes: E11.9 - Type 2 diabetes mellitus without complications SNOMED: 69006769 (3) Malnutrition ICD Codes: E46 - Unspecified protein-calorie malnutrition SNOMED: 45117735 (4) Weak ICD Codes: R53.1 - Weakness SNOMED: 10388310 (5) Sepsis ICD Codes: A41.9 - Sepsis, unspecified organism SNOMED: 82561625 (6) UTI (urinary tract infection) ICD Codes: N39.0 - Urinary tract infection, site not specified SNOMED: 90433140 Qualifiers: Qualified Codes: N30.00 - Acute cystitis without hematuria (7) HTN (hypertension) ICD Codes: I10 - Essential (primary) hypertension SNOMED: 49619898 (8) ARF (acute renal failure) ICD Codes: N17.9 - Acute kidney failure, unspecified SNOMED: 56793436 Qualifiers: Qualified Codes: N17.9 - Acute kidney failure, unspecified (9) Hypothyroid ICD Codes: E03.9 - Hypothyroidism, unspecified SNOMED: 89852428 (10) FTT (failure to thrive) in adult ICD Codes: R62.7 - Adult failure to thrive SNOMED: 199230041 (11) COVID-19 virus infection ICD Codes: U07.1 - COVID-19 SNOMED: 777693128 Status: unchanged Assessment/Plan: pt diet abx cbc bmp am Subjective Constitutional: Reports: weakness Allergies: Coded Allergies: No Known Allergies (Unverified , 10/02/19) All Systems: reviewed and negative except above Subjective sleepy calm Objective Last 24 Hour Vital Signs Date Time Temp Pulse Resp B/P (MAP) Pulse Ox O2 Delivery O2 Flow Rate FiO2 10/05/19 09:21 100 140/86 10/05/19 08:00 97.4 100 18 140/86 (104) 99 10/05/19 04:00 96.8 65 22 145/89 (107) 99 10/05/19 00:00 96.4 83 24 153/81 (105) 100 10/04/19 21:00 Room Air 10/04/19 20:00 96.8 72 22 146/83 (104) 98 10/04/19 16:00 98.4 92 20 126/80 (95) 96 10/04/19 12:00 98.2 88 19 121/74 (90) 94 Intake and Output 10/04/19 10/05/19 19:00 07:00 Intake Total 1240 ml Output Total 600 ml 600 ml Balance 640 ml -600 ml Intake Oral 360 ml IV Total 880 ml Output Urine Total 600 ml 600 ml # Bowel Movements 1 3 Height (Feet): 5 Height (Inches): 5.00 Weight (Pounds): 164 General Appearance: lethargic EENT: normal ENT inspection Neck: normal alignment Cardiovascular: normal rate, regular rhythm Respiratory/Chest: no respiratory distress, no accessory muscle use Extremities: normal inspection Skin: normal pigmentation Dustin Leija DO October 05, 2019 09:35
[2019-10-05 09:51] LABS: HEMATOCRIT 34.1 % (37.0-47.0); HEMOGLOBIN 11.1 G/DL (12.0-16.0); LYMPHOCYTES % (AUTO) 18.9 % (20.0-45.0); MEAN CORPUSCULAR VOLUME 74 FL (80-99); NEUTROPHILS % (AUTO) 67.1 % (45.0-75.0); PLATELET COUNT 393 K/UL (150-450); RED BLOOD COUNT 4.59 M/UL (4.20-5.40); WHITE BLOOD COUNT 14.5 K/UL (4.8-10.8)
[2019-10-05 10:15] LABS: PHOSPHORUS 6.4 MG/DL (2.5-4.9)
[2019-10-05 10:22] LABS: ALANINE AMINOTRANSFERASE 13 U/L (12-78); ALBUMIN 0.9 G/DL (3.4-5.0); ALBUMIN/GLOBULIN RATIO 0.2 (1.0-2.7); ALKALINE PHOSPHATASE 136 U/L (46-116); ANION GAP 15 mmol/L (5-15); ASPARTATE AMINO TRANSFERASE 20 U/L (15-37); BILIRUBIN,TOTAL 0.2 MG/DL (0.2-1.0); BLOOD UREA NITROGEN 60 mg/dL (7-18); CALCIUM 8.1 MG/DL (8.5-10.1); CARBON DIOXIDE 18 MMOL/L (21-32); CHLORIDE 113 MMOL/L (98-107); POTASSIUM 3.5 MMOL/L (3.5-5.1); SODIUM 146 MMOL/L (136-145)
--- NOTE | 2019-10-05 11:38 | Pulmonology Progress Note ---
Subjective ROS Limited/Unobtainable: No Interval Events: none new Constitutional: Reports: no symptoms HEENT: Repors: no symptoms Respiratory: Reports: no symptoms Cardiovascular: Reports: no symptoms Allergies: Coded Allergies: No Known Allergies (Unverified , 10/02/19) All Systems: reviewed and negative except above Objective Last 24 Hour Vital Signs Date Time Temp Pulse Resp B/P (MAP) Pulse Ox O2 Delivery O2 Flow Rate FiO2 10/05/19 09:21 100 140/86 10/05/19 09:00 Room Air 10/05/19 08:00 97.4 100 18 140/86 (104) 99 10/05/19 04:00 96.8 65 22 145/89 (107) 99 10/05/19 00:00 96.4 83 24 153/81 (105) 100 10/04/19 21:00 Room Air 10/04/19 20:00 96.8 72 22 146/83 (104) 98 10/04/19 16:00 98.4 92 20 126/80 (95) 96 10/04/19 12:00 98.2 88 19 121/74 (90) 94 Intake and Output 10/04/19 10/05/19 19:00 07:00 Intake Total 1240 ml Output Total 600 ml 600 ml Balance 640 ml -600 ml Intake Oral 360 ml IV Total 880 ml Output Urine Total 600 ml 600 ml # Bowel Movements 1 3 General Appearance: no acute distress HEENT: normocephalic Respiratory/Chest: chest wall non-tender, lungs clear Cardiovascular: normal peripheral pulses Abdomen: normal bowel sounds Microbiology Date/Time Source Procedure Growth Status 10/02/19 16:40 Nasopharynx Coronavirus COVID-19 PCR ([facility]CHI) - Final Complete Laboratory Tests 10/05/19 09:30: White Blood Count 14.5H, Red Blood Count 4.59, Hemoglobin 11.1L, Hematocrit 34.1L, Mean Corpuscular Volume 74L, Mean Corpuscular Hemoglobin 24.2L, Mean Corpuscular Hemoglobin Concent 32.7, Red Cell Distribution Width 12.0, Platelet Count 393, Mean Platelet Volume 5.1L, Neutrophils (%) (Auto) 67.1, Lymphocytes ( %) (Auto) 18.9L, Monocytes (%) (Auto) 10.0, Eosinophils (%) (Auto) 3.0, Basophils (%) (Auto) 1.0, Sodium Level 146H, Potassium Level 3.5, Chloride Level 113H, Carbon Dioxide Level 18L, Anion Gap 15, Blood Urea Nitrogen 60H, Creatinine 6.0H, Estimat Glomerular Filtration Rate 8.7, Glucose Level 87, Uric Acid 6.1, Calcium Level 8.1L, Phosphorus Level 6.4H, Magnesium Level 2.2, Total Bilirubin 0.2, Aspartate Amino Transf (AST/SGOT) 20, Alanine Aminotransferase ( ALT/SGPT) 13, Alkaline Phosphatase 136H, Total Protein 6.0L, Albumin 0.9L, Globulin 5.1, Albumin/Globulin Ratio 0.2L, Phenytoin (Dilantin) Level 6.6L Current Medications Medications (Trade) Dose Ordered Sig/Avila Route PRN Reason Start Time Stop Time Status Last Admin Dose Admin Acetaminophen (Tylenol) 650 mg Q4HR PRN ORAL TEMP>100.5 10/02/19 03:15 Atenolol (Tenormin) 50 mg DAILY ORAL 10/02/19 09:00 11/01/19 08:59 10/05/19 09:21 Chlorhexidine Gluconate (Marlyn-Hex 2%) 1 applic DAILY@2000 TOPIC 10/04/19 20:00 01/02/20 19:59 Dextrose 1,000 ml @ 75 mls/hr [id number] IV 10/04/19 13:30 11/03/19 13:29 10/05/19 03:00 Docusate Sodium (Colace) 100 mg TID ORAL 10/03/19 13:00 11/01/19 08:59 10/05/19 09:21 Folic Acid (Folate) 2 mg DAILY ORAL 10/03/19 10:00 11/02/19 09:59 10/05/19 09:21 Haloperidol Lactate (Haldol) 5 mg Q6H PRN IM Agitation 10/03/19 09:33 11/17/19 09:32 10/03/19 10:15 Levetiracetam (Keppra) 500 mg Q12HR ORAL 10/02/19 09:00 11/01/19 08:59 10/05/19 09:21 Levothyroxine Sodium (Synthroid) 25 mcg DAILY@0630 ORAL 10/03/19 06:30 11/02/19 06:29 10/05/19 05:00 Meropenem 500 mg/ Sodium Chloride 55 ml @ 110 mls/hr Q24H IVPB 10/04/19 14:00 10/09/19 13:59 10/04/19 14:53 Phenytoin (Dilantin) 300 mg QHS ORAL 10/03/19 21:00 11/01/19 08:59 10/04/19 21:09 Quetiapine Fumarate (SEROqueL) 25 mg Q12HR ORAL 10/03/19 09:45 11/17/19 09:44 10/05/19 09:21 Sevelamer Carbonate (Renvela) 1,600 mg THREE TIMES A DAY ORAL 10/03/19 13:00 01/01/20 12:59 10/05/19 09:21 Sodium Citrate (Bicitra) 30 ml EVERY 8 HOURS ORAL 10/04/19 14:00 11/03/19 13:59 10/05/19 05:00 Assessment/Plan Assessment/Plan IMPRESSION: 1. Acute on chronic renal failure. 2. CHF. 3. Hyperlipidemia. 4. Hypothyroidism. 5. GERD. 6. Encephalopathy. 7. Positive COVID-19. 8. Seizure disorder. DISCUSSION: Continue IV fluids. Antibiotics per ID. Currently saturating well on low-flow oxygen and room air. I will follow carefully. Esequiel Barrera M.D. Esequiel Barrera MD October 05, 2019 11:38
[2019-10-05 12:00] VITALS: BP 138/82
--- NOTE | 2019-10-05 12:53 | Nephrology Progress Note ---
Assessment/Plan Problem List: (1) ARF (acute renal failure) Assessment: Serum creatinine slightly lower (2) COVID-19 virus infection (3) Renal failure (ARF), acute on chronic (4) Hypoalbuminemia Assessment: Nephrotic range proteinuria (5) Anemia Assessment: Low MCV (6) Diabetes Assessment: Hemoglobin A1c is 6.4 (7) Seizure disorder Assessment Renal failure most likely acute superimposed on chronic 4+ proteinuria with severe hypoalbuminemia should rule out nephrotic syndrome COVID-19 virus infection UTI Anemia with low MCV, likely part due to iron deficiency Toxic metabolic encephalopathy History of seizures Plan Discussed with Araseli Lawton is the daughter of the patient who agrees with initiation of hemodialysis Kidney ultrasound suggestive of chronic kidney disease also only the right kidney was visualized Patient has low creatinine clearance and requires dialysis treatment Will discuss with case management and or responsible libertarian regarding initiation of dialysis Meanwhile continue per current management and consultants Discussed with case work aide who will contact the daughter for the consent Meanwhile will discontinue hydration and continue to monitor renal parameters Saini catheter, 24-hour urine collection for protein-ordered results indicative of nephrotic range proteinuria Kidney ultrasound results checked patient has 1 kidney Avoid nephrotoxic's Urine studies Monitor renal parameters Antibiotics Continue per consultants Subjective ROS Limited/Unobtainable: No Constitutional: Reports: malaise Objective Objective Last 24 Hour Vital Signs Date Time Temp Pulse Resp B/P (MAP) Pulse Ox O2 Delivery O2 Flow Rate FiO2 10/05/19 09:21 100 140/86 10/05/19 09:00 Room Air 10/05/19 08:00 97.4 100 18 140/86 (104) 99 10/05/19 04:00 96.8 65 22 145/89 (107) 99 10/05/19 00:00 96.4 83 24 153/81 (105) 100 10/04/19 21:00 Room Air 10/04/19 20:00 96.8 72 22 146/83 (104) 98 10/04/19 16:00 98.4 92 20 126/80 (95) 96 Intake and Output 10/04/19 10/05/19 19:00 07:00 Intake Total 1240 ml Output Total 600 ml 600 ml Balance 640 ml -600 ml Intake Oral 360 ml IV Total 880 ml Output Urine Total 600 ml 600 ml # Bowel Movements 1 3 Laboratory Tests 10/05/19 09:30: White Blood Count 14.5H, Red Blood Count 4.59, Hemoglobin 11.1L, Hematocrit 34.1L, Mean Corpuscular Volume 74L, Mean Corpuscular Hemoglobin 24.2L, Mean Corpuscular Hemoglobin Concent 32.7, Red Cell Distribution Width 12.0, Platelet Count 393, Mean Platelet Volume 5.1L, Neutrophils (%) (Auto) 67.1, Lymphocytes ( %) (Auto) 18.9L, Monocytes (%) (Auto) 10.0, Eosinophils (%) (Auto) 3.0, Basophils (%) (Auto) 1.0, Sodium Level 146H, Potassium Level 3.5, Chloride Level 113H, Carbon Dioxide Level 18L, Anion Gap 15, Blood Urea Nitrogen 60H, Creatinine 6.0H, Estimat Glomerular Filtration Rate 8.7, Glucose Level 87, Uric Acid 6.1, Calcium Level 8.1L, Phosphorus Level 6.4H, Magnesium Level 2.2, Total Bilirubin 0.2, Aspartate Amino Transf (AST/SGOT) 20, Alanine Aminotransferase ( ALT/SGPT) 13, Alkaline Phosphatase 136H, Total Protein 6.0L, Albumin 0.9L, Globulin 5.1, Albumin/Globulin Ratio 0.2L, Phenytoin (Dilantin) Level 6.6L Height (Feet): 5 Height (Inches): 5.00 Weight (Pounds): 164 General Appearance: no apparent distress Cardiovascular: normal rate Respiratory/Chest: decreased breath sounds Abdomen: soft Objective No change Yinka Boston MD October 05, 2019 12:53
[2019-10-05] MEDS: Meropenem 500 MG in NS 55 ML IVPB SCH (13:19)
--- NOTE | 2019-10-05 13:19 | Infectious Diseases Prog Note ---
Assessment/Plan Assessment/Plan Assessment: COVID positive (tested positive on 09/20)-still positive -10/01 CXR: There is some crowding of bronchovascular markings at the left lung base. Left costophrenic sulcus is obscured, small pleural effusion likely. SARS-COV2 PCR + UTI -u/a wbc tnct, nit +, leuk +2; ucx >100k M, morganii, probable Amp-C (R amp, Ancef, macrobid; S Ceftriaxone), >100k E.coli (I Amp; otherwise S), >100k mixed gram positive -Bcx NTD Afebrile Leukocytosis; increased, now improving BOB on CKD (cr 10.4)- last Cr available was 1.4 on 2005- improving -Renal US: LIMITED STUDY DUE TO PATIENT'S BODY HABITUS. LEFT KIDNEY NOT VISUALIZED.CORTICAL THINNING AND INCREASED CORTICAL ECHOGENICITY OF THE RIGHT KIDNEY REFLECTING MEDICAL RENAL DISEASE. SMALL RENAL CYST NOTED BUT NO SIGN OF OBSTRUCTIVE UROPATHY. CHF HLD hypothyroidism GERD seizure disorder [place] resident Plan: -Continue Meropenem #2 (abx d #/-10) for UTI -10/01 SP Azithromycin x1 -f/u cx -Monitor CBC/CMP, temperatures -COVID19 isolation; still positive on repeat test on 10/01 -Nephro f/u -aspiration precautions Thank you for consulting [facility]. Will continue to follow along with you. Discussed with RN, Subjective Allergies: Coded Allergies: No Known Allergies (Unverified , 10/02/19) Subjective afebrile at RA wbc mildly improved Cr slowly improving Bcx NTD Objective Vital Signs Last 24 Hour Vital Signs Date Time Temp Pulse Resp B/P (MAP) Pulse Ox O2 Delivery O2 Flow Rate FiO2 10/05/19 09:21 100 140/86 10/05/19 09:00 Room Air 10/05/19 08:00 97.4 100 18 140/86 (104) 99 10/05/19 04:00 96.8 65 22 145/89 (107) 99 10/05/19 00:00 96.4 83 24 153/81 (105) 100 10/04/19 21:00 Room Air 10/04/19 20:00 96.8 72 22 146/83 (104) 98 10/04/19 16:00 98.4 92 20 126/80 (95) 96 Height (Feet): 5 Height (Inches): 5.00 Weight (Pounds): 164 Objective not examined to limit COVID19 exposure Microbiology Date/Time Source Procedure Growth Status 10/02/19 16:40 Nasopharynx Coronavirus COVID-19 PCR ([facility]CH[facility]) - Final Complete Laboratory Tests Test 10/05/19 09:30 White Blood Count 14.5 K/UL (4.8-10.8) H Red Blood Count 4.59 M/UL (4.20-5.40) Hemoglobin 11.1 G/DL (12.0-16.0) L Hematocrit 34.1 % (37.0-47.0) L Mean Corpuscular Volume 74 FL (80-99) L Mean Corpuscular Hemoglobin 24.2 PG (27.0-31.0) L Mean Corpuscular Hemoglobin Concent 32.7 G/DL (32.0-36.0) Red Cell Distribution Width 12.0 % (11.6-14.8) Platelet Count 393 K/UL (150-450) Mean Platelet Volume 5.1 FL (6.5-10.1) L Neutrophils (%) (Auto) 67.1 % (45.0-75.0) Lymphocytes (%) (Auto) 18.9 % (20.0-45.0) L Monocytes (%) (Auto) 10.0 % (1.0-10.0) Eosinophils (%) (Auto) 3.0 % (0.0-3.0) Basophils (%) (Auto) 1.0 % (0.0-2.0) Sodium Level 146 MMOL/L (136-145) H Potassium Level 3.5 MMOL/L (3.5-5.1) Chloride Level 113 MMOL/L (98-107) H Carbon Dioxide Level 18 MMOL/L (21-32) L Anion Gap 15 mmol/L (5-15) Blood Urea Nitrogen 60 mg/dL (7-18) H Creatinine 6.0 MG/DL (0.55-1.30) H Estimat Glomerular Filtration Rate 8.7 mL/min (>60) Glucose Level 87 MG/DL (74-106) Uric Acid 6.1 MG/DL (2.6-7.2) Calcium Level 8.1 MG/DL (8.5-10.1) L Phosphorus Level 6.4 MG/DL (2.5-4.9) H Magnesium Level 2.2 MG/DL (1.8-2.4) Total Bilirubin 0.2 MG/DL (0.2-1.0) Aspartate Amino Transf (AST/SGOT) 20 U/L (15-37) Alanine Aminotransferase (ALT/SGPT) 13 U/L (12-78) Alkaline Phosphatase 136 U/L (46-116) H Total Protein 6.0 G/DL (6.4-8.2) L Albumin 0.9 G/DL (3.4-5.0) L Globulin 5.1 g/dL Albumin/Globulin Ratio 0.2 (1.0-2.7) L Phenytoin (Dilantin) Level 6.6 ug/mL (10-20) L Current Medications Medications (Trade) Dose Ordered Sig/Avila Route PRN Reason Start Time Stop Time Status Last Admin Dose Admin Acetaminophen (Tylenol) 650 mg Q4HR PRN ORAL TEMP>100.5 10/02/19 03:15 Atenolol (Tenormin) 50 mg DAILY ORAL 10/02/19 09:00 11/01/19 08:59 10/05/19 09:21 Chlorhexidine Gluconate (Marlyn-Hex 2%) 1 applic DAILY@2000 TOPIC 10/04/19 20:00 01/02/20 19:59 Docusate Sodium (Colace) 100 mg TID ORAL 10/03/19 13:00 11/01/19 08:59 10/05/19 09:21 Folic Acid (Folate) 2 mg DAILY ORAL 10/03/19 10:00 11/02/19 09:59 10/05/19 09:21 Haloperidol Lactate (Haldol) 5 mg Q6H PRN IM Agitation 10/03/19 09:33 11/17/19 09:32 10/03/19 10:15 Levetiracetam (Keppra) 500 mg Q12HR ORAL 10/02/19 09:00 11/01/19 08:59 10/05/19 09:21 Levothyroxine Sodium (Synthroid) 25 mcg DAILY@0630 ORAL 10/03/19 06:30 11/02/19 06:29 10/05/19 05:00 Meropenem 500 mg/ Sodium Chloride 55 ml @ 110 mls/hr Q24H IVPB 10/04/19 14:00 10/09/19 13:59 10/04/19 14:53 Phenytoin (Dilantin) 300 mg QHS ORAL 10/03/19 21:00 11/01/19 08:59 10/04/19 21:09 Quetiapine Fumarate (SEROqueL) 25 mg Q12HR ORAL 10/03/19 09:45 11/17/19 09:44 10/05/19 09:21 Sevelamer Carbonate (Renvela) 1,600 mg THREE TIMES A DAY ORAL 10/03/19 13:00 01/01/20 12:59 10/05/19 09:21 Sodium Citrate (Bicitra) 30 ml EVERY 8 HOURS ORAL 10/04/19 14:00 11/03/19 13:59 10/05/19 05:00 Marie Ross M.D. October 05, 2019 13:19
--- NOTE | 2019-10-05 13:26 | NUR ---
CASE MANAGEMENT: REVIEW 10/05/2019 SI:SEPSIS. COVID positive (tested positive on 09/20)-still positive VS: T 97.4 HR 100 RR 18 B/P 140/86 SATS 99% ON RA LABS: WBC 14.5 NA 146 CL 113 CO2 18 BUN 60 CR 6 CA 8.1 ALP 136 IS:BICITRA PO Q8H ATENOLOL PO QD KEPPRA PO Q12H SEROQUEL PO Q12H MEROPENEM IV Q24H DILANTIN PO QHS RENVELA PO TID MED/SURG PLAN OF CARE: INITIATION OF HD >> DTR IS AGREEABLE
--- NOTE | 2019-10-05 13:36 | NUR ---
CASE MANAGEMENT: NOTE CALL PLACED TO DTR KOSTAS GAMINO [phone]. KOSTAS ENDORSED TO CM THAT SHE IS THE DECISION MAKER FOR THIS PATIENT. Kostas CONFIRMED THAT THE PATIENT DOES NOT HAVE A POA IN PLACE AT THIS TIME. KOSTAS WOULD LIKE THIS PATIENT TO RETURN TO HOME ON DISCHARGE (PATIENT IS ORIGINALLY FROM SNF) NURSING UPDATED AND TO CONTACT MD REGARDING ORDERS HEP PANEL HAS BEEN ORDERED SEE NEPHRO NOTE
[2019-10-05 16:00] VITALS: BP 132/88
[2019-10-05] MEDS ORDERED: Lidocaine 1% Plain 30 ml INJ PRN (16:00)
[2019-10-05] MEDS ORDERED: Heparin1,000 units/500ml Premix(Conc:2 units/ml) IV PRN (16:00)
--- NOTE | 2019-10-05 16:30 | Diagnostic Imaging Report ---
EXAM: ULTRASOUND US Renal Comp CLINICAL HISTORY: Flank pain.. COMPARISON: None TECHNIQUE: Ultrasound examination of the kidneys includes grayscale images, and color and spectral doppler analysis. FINDINGS: Study limited due to patient body habitus. The right kidney measures 9.1 x 4.8 x 5.2 cm. Left kidney poorly visualized. There is cortical thinning and increased cortical echogenicity of the right kidney. Small renal cysts noted. No hydronephrosis or stone demonstrated. Bladder empty with Saini catheter in place. IMPRESSION: LIMITED STUDY DUE TO PATIENT'S BODY HABITUS. LEFT KIDNEY NOT VISUALIZED. CORTICAL THINNING AND INCREASED CORTICAL ECHOGENICITY OF THE RIGHT KIDNEY REFLECTING MEDICAL RENAL DISEASE. SMALL RENAL CYST NOTED BUT NO SIGN OF OBSTRUCTIVE UROPATHY.
--- NOTE | 2019-10-05 17:09 | Pre-Procedure Note/Attestation ---
Pre-Procedure Note/Attestation Complete Prior to Procedure Planned Procedure: not applicable Procedure Narrative: picc line placement Indications for Procedure Pre-Operative Diagnosis: need iv access Attestation Consent obtained by primary medical teams, confirmed prior to PICC insertion. Eric Wallace M.D. October 05, 2019 17:09
--- NOTE | 2019-10-05 17:16 | Diagnostic Imaging Report ---
Indications: Needs long-term IV access Technique: Procedure performed at bedside. Procedural timeout performed. Ultrasound confirms patent compressible left basilic vein. Total sterile technique, including sterile probe cover and sterile gel, sterile gloves, hand hygiene, hat, mask,, sterile gown, large sterile drape, and preparation with 2% chlorhexidine utilized. Local anesthesia with 1% lidocaine. Under real-time ultrasound guidance, puncture left basilic vein using 21-gauge needle, passage 0.018 guidewire, exchange for 5 [place] peel-away sheath. 4 [place] dual-lumen power PICC cut to 30 cm. It was inserted through the peel-away sheath. Peel-away sheath and guidewire removed. Catheter fixed to the skin. Both catheter ports aspirated and flushed. Patient tolerated procedure well, without immediate complication. Followup chest x-ray obtained, documents catheter tip position at the central left innominate vein. There is no evidence of pneumothorax. Small left pleural effusion and interstitial opacification/edema not significantly changed compared to prior chest radiograph. Probable TOOL PROGRAMMER shunt tubing again noted. Impression: Successful bedside placement of 4 [place] double-lumen PICC under sonographic guidance, as described above. Catheter cleared for immediate use.
--- NOTE | 2019-10-05 19:48 | NUR ---
HAND-OFF: Report given to Paige BELCHER.
--- NOTE | 2019-10-05 19:50 | NUR ---
NURSE NOTES: Patient is in bed, awake and alert x1. On room air, with no signs distress or SOB. Saini in place and draining yellow urine. MANDEEP PICC line and peripheral IV intact and patent. Side rails padded for seizure precautions. Bed locked and in lowest position with bed alarm on. Call light within reach. Will continue to monitor the patient.
[2019-10-05 20:00] VITALS: BP 137/83
[2019-10-05] MEDS: Phenytoin 100mg cap ORAL SCH (20:44)
[2019-10-05] MEDS: Dyna-Hex 2% Top Sol 2oz TOPIC SCH (20:44)
--- NOTE | 2019-10-05 23:45 | Psych Consult Progress Note ---
Psychiatry Progress Note Psychiatry Progress Note Subjective the pt is confused and unable to make decisions. the pt lacks capacity Medications Current Medications Medications (Trade) Dose Ordered Sig/Avila Route PRN Reason Start Time Stop Time Status Last Admin Dose Admin Acetaminophen (Tylenol) 650 mg Q4HR PRN ORAL TEMP>100.5 10/02/19 03:15 Atenolol (Tenormin) 50 mg DAILY ORAL 10/02/19 09:00 11/01/19 08:59 10/05/19 09:21 Chlorhexidine Gluconate (Marlyn-Hex 2%) 1 applic DAILY@2000 TOPIC 10/04/19 20:00 01/02/20 19:59 10/05/19 20:44 Docusate Sodium (Colace) 100 mg TID ORAL 10/03/19 13:00 11/01/19 08:59 10/05/19 18:38 Folic Acid (Folate) 2 mg DAILY ORAL 10/03/19 10:00 11/02/19 09:59 10/05/19 09:21 Haloperidol Lactate (Haldol) 5 mg Q6H PRN IM Agitation 10/03/19 09:33 11/17/19 09:32 10/03/19 10:15 Heparin Sodium/ Sodium Chloride (Heparin 1000 units/500ml Premix) 1,000 unit ONCE PRN IV PICC 10/05/19 16:00 10/07/19 15:59 Levetiracetam (Keppra) 500 mg Q12HR ORAL 10/02/19 09:00 11/01/19 08:59 10/05/19 20:45 Levothyroxine Sodium (Synthroid) 25 mcg DAILY@0630 ORAL 10/03/19 06:30 11/02/19 06:29 10/05/19 05:00 Lidocaine HCl (Xylocaine 1% 30ml) 30 ml ONCE PRN INJ PICC 10/05/19 16:00 10/07/19 15:59 Meropenem 500 mg/ Sodium Chloride 55 ml @ 110 mls/hr Q24H IVPB 10/04/19 14:00 10/09/19 13:59 10/05/19 13:19 Phenytoin (Dilantin) 300 mg QHS ORAL 10/03/19 21:00 11/01/19 08:59 10/05/19 20:44 Quetiapine Fumarate (SEROqueL) 25 mg Q12HR ORAL 10/03/19 09:45 11/17/19 09:44 10/05/19 20:45 Sevelamer Carbonate (Renvela) 1,600 mg THREE TIMES A DAY ORAL 10/03/19 13:00 01/01/20 12:59 10/05/19 18:38 Sodium Citrate (Bicitra) 30 ml EVERY 8 HOURS ORAL 10/04/19 14:00 11/03/19 13:59 10/05/19 13:19 Allergies: Coded Allergies: No Known Allergies (Unverified , 10/02/19) Objective Data Height (Feet): 5 Height (Inches): 5.00 Weight (Pounds): 164 General Appearance: alert, confused, agitated, obese Assessment/Plan Problem List: (1) Acute metabolic encephalopathy ICD Codes: G93.41 - Metabolic encephalopathy SNOMED: 22907225, 800114332 Status: unchanged Assessment/Plan: PLAN: 1. Seroquel 25 mg p.o. b.i.d. 2. Haldol p.r.n. 3. Discussed with the nurse. Alex Kingsley MD October 05, 2019 23:45
[2019-10-06] VITALS: BP 130/78
[2019-10-06 04:00] VITALS: BP 118/76
--- NOTE | 2019-10-06 05:55 | NUR ---
NURSE NOTES: Unable to withdrawal sufficient blood from PICC line for morning labs; notified lab.
[2019-10-06] MEDS: Levothyroxine 25mcg tab ORAL SCH (06:22)
[2019-10-06] MEDS: Sodium Citrate 30ml ORAL SCH ×2 (06:22→14:00)
--- NOTE | 2019-10-06 07:33 | NUR ---
HAND-OFF: Report given to YE Bush.
--- NOTE | 2019-10-06 07:50 | NUR ---
NURSE NOTES: Patient awake and alert when name called,patient attempting to talk but unable to understand patient.Respirations unlabored ,will assist patient with breakfast.Bed alarm on,call light within reach.
[2019-10-06 08:00] VITALS: BP 110/70
--- NOTE | 2019-10-06 09:39 | General Progress Note ---
Assessment/Plan Problem List: (1) Anemia ICD Codes: D64.9 - Anemia, unspecified SNOMED: 869835090 Qualifiers: Qualified Codes: D64.9 - Anemia, unspecified (2) Diabetes ICD Codes: E11.9 - Type 2 diabetes mellitus without complications SNOMED: 93336014 (3) Malnutrition ICD Codes: E46 - Unspecified protein-calorie malnutrition SNOMED: 90472082 (4) Weak ICD Codes: R53.1 - Weakness SNOMED: 68042817 (5) Sepsis ICD Codes: A41.9 - Sepsis, unspecified organism SNOMED: 08926692 (6) UTI (urinary tract infection) ICD Codes: N39.0 - Urinary tract infection, site not specified SNOMED: 62095366 Qualifiers: Qualified Codes: N30.00 - Acute cystitis without hematuria (7) HTN (hypertension) ICD Codes: I10 - Essential (primary) hypertension SNOMED: 70592341 (8) ARF (acute renal failure) ICD Codes: N17.9 - Acute kidney failure, unspecified SNOMED: 73426244 Qualifiers: Qualified Codes: N17.9 - Acute kidney failure, unspecified (9) Hypothyroid ICD Codes: E03.9 - Hypothyroidism, unspecified SNOMED: 08661812 (10) FTT (failure to thrive) in adult ICD Codes: R62.7 - Adult failure to thrive SNOMED: 701474732 (11) COVID-19 virus infection ICD Codes: U07.1 - COVID-19 SNOMED: 614184275 Status: unchanged Assessment/Plan: pt diet abx cbc bmp am Subjective Constitutional: Reports: weakness Allergies: Coded Allergies: No Known Allergies (Unverified , 10/02/19) All Systems: reviewed and negative except above Subjective sleepy calm Objective Last 24 Hour Vital Signs Date Time Temp Pulse Resp B/P (MAP) Pulse Ox O2 Delivery O2 Flow Rate FiO2 10/06/19 04:00 97.2 84 19 118/76 (90) 100 10/06/19 00:00 97.8 80 19 130/78 (95) 95 10/05/19 20:21 Room Air 10/05/19 20:00 97.0 85 19 137/83 (101) 95 10/05/19 16:00 98.4 93 20 132/88 (103) 98 10/05/19 12:00 97.8 96 19 138/82 (100) 98 Intake and Output 10/05/19 10/06/19 19:00 07:00 Intake Total 820 ml Output Total 800 ml 950 ml Balance 20 ml -950 ml Intake Oral 820 ml Output Urine Total 800 ml 950 ml # Voids 1 Height (Feet): 5 Height (Inches): 5.00 Weight (Pounds): 164 General Appearance: lethargic EENT: normal ENT inspection Neck: normal alignment Cardiovascular: normal rate, regular rhythm Respiratory/Chest: no respiratory distress, no accessory muscle use Extremities: normal inspection Skin: normal pigmentation Dustin Leija DO October 06, 2019 09:39
[2019-10-06] MEDS: Docusate 100mg cap ORAL SCH ×3 (09:46→18:33)
--- NOTE | 2019-10-06 10:23 | Infectious Diseases Prog Note ---
Assessment/Plan Assessment/Plan Assessment: COVID positive (tested positive on 09/20)-still positive -10/01 CXR: There is some crowding of bronchovascular markings at the left lung base. Left costophrenic sulcus is obscured, small pleural effusion likely. SARS-COV2 PCR + UTI -u/a wbc tnct, nit +, leuk +2; ucx >100k M, morganii, probable Amp-C (R amp, Ancef, macrobid; S Ceftriaxone), >100k E.coli (I Amp; otherwise S), >100k mixed gram positive -Bcx NTD Afebrile Leukocytosis; increased, now improving BOB on CKD (cr 10.4)- last Cr available was 1.4 on 2005- improving -Renal US: LIMITED STUDY DUE TO PATIENT'S BODY HABITUS. LEFT KIDNEY NOT VISUALIZED.CORTICAL THINNING AND INCREASED CORTICAL ECHOGENICITY OF THE RIGHT KIDNEY REFLECTING MEDICAL RENAL DISEASE. SMALL RENAL CYST NOTED BUT NO SIGN OF OBSTRUCTIVE UROPATHY. CHF HLD hypothyroidism GERD seizure disorder [place] resident Plan: -Continue Meropenem #3 (abx d #09/26-10) for UTI -10/01 SP Azithromycin x1 -f/u cx -Monitor CBC/CMP, temperatures -COVID19 isolation; still positive on repeat test on 10/01 -Nephro f/u -aspiration precautions Thank you for consulting [facility]. Will continue to follow along with you. Discussed with RN, Subjective Allergies: Coded Allergies: No Known Allergies (Unverified , 10/02/19) Subjective Afebrile On RA Objective Vital Signs Last 24 Hour Vital Signs Date Time Temp Pulse Resp B/P (MAP) Pulse Ox O2 Delivery O2 Flow Rate FiO2 10/06/19 09:46 83 111/75 10/06/19 04:00 97.2 84 19 118/76 (90) 100 10/06/19 00:00 97.8 80 19 130/78 (95) 95 10/05/19 20:21 Room Air 10/05/19 20:00 97.0 85 19 137/83 (101) 95 10/05/19 16:00 98.4 93 20 132/88 (103) 98 10/05/19 12:00 97.8 96 19 138/82 (100) 98 Height (Feet): 5 Height (Inches): 5.00 Weight (Pounds): 164 Objective Patient not examined to day in order to conserve PPE Patient clinical status discussed with nurse and other physician notes and exams reviewed Current Medications Medications (Trade) Dose Ordered Sig/Avila Route PRN Reason Start Time Stop Time Status Last Admin Dose Admin Acetaminophen (Tylenol) 650 mg Q4HR PRN ORAL TEMP>100.5 10/02/19 03:15 Atenolol (Tenormin) 50 mg DAILY ORAL 10/02/19 09:00 11/01/19 08:59 10/06/19 09:46 Chlorhexidine Gluconate (Marlyn-Hex 2%) 1 applic DAILY@2000 TOPIC 10/04/19 20:00 01/02/20 19:59 10/05/19 20:44 Docusate Sodium (Colace) 100 mg TID ORAL 10/03/19 13:00 11/01/19 08:59 10/06/19 09:46 Folic Acid (Folate) 2 mg DAILY ORAL 10/03/19 10:00 11/02/19 09:59 10/06/19 09:47 Haloperidol Lactate (Haldol) 5 mg Q6H PRN IM Agitation 10/03/19 09:33 11/17/19 09:32 10/03/19 10:15 Heparin Sodium/ Sodium Chloride (Heparin 1000 units/500ml Premix) 1,000 unit ONCE PRN IV PICC 10/05/19 16:00 10/07/19 15:59 Levetiracetam (Keppra) 500 mg Q12HR ORAL 10/02/19 09:00 11/01/19 08:59 10/06/19 09:46 Levothyroxine Sodium (Synthroid) 25 mcg DAILY@0630 ORAL 10/03/19 06:30 11/02/19 06:29 10/06/19 06:22 Lidocaine HCl (Xylocaine 1% 30ml) 30 ml ONCE PRN INJ PICC 10/05/19 16:00 10/07/19 15:59 Meropenem 500 mg/ Sodium Chloride 55 ml @ 110 mls/hr Q24H IVPB 10/04/19 14:00 10/09/19 13:59 10/05/19 13:19 Phenytoin (Dilantin) 300 mg QHS ORAL 10/03/19 21:00 11/01/19 08:59 10/05/19 20:44 Quetiapine Fumarate (SEROqueL) 25 mg Q12HR ORAL 10/03/19 09:45 11/17/19 09:44 10/05/19 20:45 Sevelamer Carbonate (Renvela) 1,600 mg THREE TIMES A DAY ORAL 10/03/19 13:00 01/01/20 12:59 10/06/19 09:46 Sodium Citrate (Bicitra) 30 ml EVERY 8 HOURS ORAL 10/04/19 14:00 11/03/19 13:59 10/06/19 06:22 Arnold Mora MD October 06, 2019 10:23
[2019-10-06 12:00] VITALS: BP 115/80
--- NOTE | 2019-10-06 12:11 | Pulmonology Progress Note ---
Subjective ROS Limited/Unobtainable: No Interval Events: none new Constitutional: Reports: no symptoms HEENT: Repors: no symptoms Respiratory: Reports: no symptoms Cardiovascular: Reports: no symptoms Allergies: Coded Allergies: No Known Allergies (Unverified , 10/02/19) All Systems: reviewed and negative except above Objective Last 24 Hour Vital Signs Date Time Temp Pulse Resp B/P (MAP) Pulse Ox O2 Delivery O2 Flow Rate FiO2 10/06/19 10:29 Room Air 10/06/19 09:46 83 111/75 10/06/19 08:00 98.8 82 18 110/70 (83) 95 10/06/19 04:00 97.2 84 19 118/76 (90) 100 10/06/19 00:00 97.8 80 19 130/78 (95) 95 10/05/19 20:21 Room Air 10/05/19 20:00 97.0 85 19 137/83 (101) 95 10/05/19 16:00 98.4 93 20 132/88 (103) 98 Intake and Output 10/05/19 10/06/19 19:00 07:00 Intake Total 820 ml Output Total 800 ml 950 ml Balance 20 ml -950 ml Intake Oral 820 ml Output Urine Total 800 ml 950 ml # Voids 1 General Appearance: no acute distress HEENT: normocephalic Respiratory: chest wall non-tender, lungs clear Cardiovascular: normal peripheral pulses Abdomen: normal bowel sounds Current Medications Medications (Trade) Dose Ordered Sig/Avila Route PRN Reason Start Time Stop Time Status Last Admin Dose Admin Acetaminophen (Tylenol) 650 mg Q4HR PRN ORAL TEMP>100.5 10/02/19 03:15 Atenolol (Tenormin) 50 mg DAILY ORAL 10/02/19 09:00 11/01/19 08:59 10/06/19 09:46 Chlorhexidine Gluconate (Marlyn-Hex 2%) 1 applic DAILY@1999 TOPIC 10/04/19 20:00 01/02/20 19:59 10/05/19 20:44 Docusate Sodium (Colace) 100 mg TID ORAL 10/03/19 13:00 11/01/19 08:59 10/06/19 09:46 Folic Acid (Folate) 2 mg DAILY ORAL 10/03/19 10:00 11/02/19 09:59 10/06/19 09:47 Haloperidol Lactate (Haldol) 5 mg Q6H PRN IM Agitation 10/03/19 09:33 11/17/19 09:32 10/03/19 10:15 Heparin Sodium/ Sodium Chloride (Heparin 1000 units/500ml Premix) 1,000 unit ONCE PRN IV PICC 10/05/19 16:00 10/07/19 15:59 Levetiracetam (Keppra) 500 mg Q12HR ORAL 10/02/19 09:00 11/01/19 08:59 10/06/19 09:46 Levothyroxine Sodium (Synthroid) 25 mcg DAILY@0630 ORAL 10/03/19 06:30 11/02/19 06:29 10/06/19 06:22 Lidocaine HCl (Xylocaine 1% 30ml) 30 ml ONCE PRN INJ PICC 10/05/19 16:00 10/07/19 15:59 Meropenem 500 mg/ Sodium Chloride 55 ml @ 110 mls/hr Q24H IVPB 10/04/19 14:00 10/09/19 13:59 10/05/19 13:19 Phenytoin (Dilantin) 300 mg QHS ORAL 10/03/19 21:00 11/01/19 08:59 10/05/19 20:44 Quetiapine Fumarate (SEROqueL) 25 mg Q12HR ORAL 10/03/19 09:45 11/17/19 09:44 10/05/19 20:45 Sevelamer Carbonate (Renvela) 1,600 mg THREE TIMES A DAY ORAL 10/03/19 13:00 01/01/20 12:59 10/06/19 09:46 Sodium Citrate (Bicitra) 30 ml EVERY 8 HOURS ORAL 10/04/19 14:00 11/03/19 13:59 10/06/19 06:22 Assessment/Plan Assessment/Plan IMPRESSION: 1. Acute on chronic renal failure. 2. CHF. 3. Hyperlipidemia. 4. Hypothyroidism. 5. GERD. 6. Encephalopathy. 7. Positive COVID-19. 8. Seizure disorder. DISCUSSION: Continue antibiotics per ID. Currently saturating well on low- flow oxygen and room air. I will follow carefully. Jaleel Du Omar Syed MD October 06, 2019 12:11
--- NOTE | 2019-10-06 13:11 | Nephrology Progress Note ---
Assessment/Plan Problem List: (1) ARF (acute renal failure) Assessment: Serum creatinine slightly lower (2) COVID-19 virus infection (3) Renal failure (ARF), acute on chronic (4) Hypoalbuminemia Assessment: Nephrotic range proteinuria (5) Anemia Assessment: Low MCV (6) Diabetes Assessment: Hemoglobin A1c is 6.4 (7) Seizure disorder Assessment Renal failure most likely acute superimposed on chronic 4+ proteinuria with severe hypoalbuminemia should rule out nephrotic syndrome COVID-19 virus infection UTI Anemia with low MCV, likely part due to iron deficiency Toxic metabolic encephalopathy History of seizures Plan Discussed with Araseli Lawton is the daughter of the patient who agrees with initiation of hemodialysis Labs still pending for today October 05 Kidney ultrasound suggestive of chronic kidney disease also only the right kidney was visualized Patient has low creatinine clearance and requires dialysis treatment Will discuss with case management and or responsible libertarian regarding initiation of dialysis Meanwhile continue per current management and consultants Discussed with caser up who will contact the daughter for the consent Meanwhile will discontinue hydration and continue to monitor renal parameters Saini catheter, 24-hour urine collection for protein-ordered results indicative of nephrotic range proteinuria Kidney ultrasound results checked patient has 1 kidney Avoid nephrotoxic's Urine studies Monitor renal parameters Antibiotics Continue per consultants Subjective ROS Limited/Unobtainable: No Constitutional: Reports: malaise Objective Objective Last 24 Hour Vital Signs Date Time Temp Pulse Resp B/P (MAP) Pulse Ox O2 Delivery O2 Flow Rate FiO2 10/06/19 12:00 97.4 82 18 115/80 (92) 95 10/06/19 10:29 Room Air 10/06/19 09:46 83 111/75 10/06/19 08:00 98.8 82 18 110/70 (83) 95 10/06/19 04:00 97.2 84 19 118/76 (90) 100 10/06/19 00:00 97.8 80 19 130/78 (95) 95 10/05/19 20:21 Room Air 10/05/19 20:00 97.0 85 19 137/83 (101) 95 10/05/19 16:00 98.4 93 20 132/88 (103) 98 Intake and Output 10/05/19 10/06/19 19:00 07:00 Intake Total 820 ml Output Total 800 ml 950 ml Balance 20 ml -950 ml Intake Oral 820 ml Output Urine Total 800 ml 950 ml # Voids 1 Height (Feet): 5 Height (Inches): 5.00 Weight (Pounds): 164 General Appearance: no apparent distress Cardiovascular: normal rate Respiratory/Chest: decreased breath sounds Abdomen: soft Objective No change Yinka Boston MD October 06, 2019 13:11
--- NOTE | 2019-10-06 13:49 | NUR ---
NURSE NOTES: Patient has picc line,picc line flush well but unable to get blood from picc line for stat blood draw per DR Boston. wood preserving plant laborer was here but patient refuses lab draw. Will notify DR Boston.
--- NOTE | 2019-10-06 13:53 | NUR ---
CHARGE NURSE NOTE: Pt is confused, non cooperative, refused stat () order blood draw.
--- NOTE | 2019-10-06 13:55 | NUR ---
CHARGE NURSE NOTE: Spoke with . He wants to be sure that blood test was done for possible future HD plan. He asked to call primary doctor or Dr. Kingsley to get some orders for psych. meds to calm pt down and after to draw blood. was called, orders received.
[2019-10-06] MEDS ORDERED: Haloperidol 5mg/ml Inj IM SCH (14:00)
[2019-10-06] MEDS ORDERED: DiphenhydrAMINE 50mg/ml Inj IM SCH (14:00)
[2019-10-06] MEDS: Meropenem 500 MG in NS 55 ML IVPB SCH (14:22)
[2019-10-06 16:00] VITALS: BP 114/81
--- NOTE | 2019-10-06 16:46 | NUR ---
CHARGE NURSE NOTE: Haldol 5 mg IM, benadryl 50 mg IM were given at 1451. Pt was assessed at 1530, looks calmer. Food Safety Officer Kaz was called to draw blood. He came at 1620. - was unable to draw blood, pt refused, became agitated,combative,cursing. CN and primary nurse tried to do blood draw. No success. Pt was fighting, cursing. Dr. Kingsley will be called to get a relaxation meds.
[2019-10-06] MEDS ORDERED: LORazepam Inj 2mg/ml 1ml IV SCH (17:30)
--- NOTE | 2019-10-06 19:00 | NUR ---
NURSE NOTES: Patient still resistance Ativan given as ordered.Bed alarm on,call light within reach.Lab notified and will be up to draw blood.
--- NOTE | 2019-10-06 19:12 | NUR ---
NURSE NOTES:HAND-OFF: Report given to ARI RN,aware of fall risk.
--- NOTE | 2019-10-06 19:40 | NUR ---
NURSE NOTES: Received report from Rachelle BELCHER,assessed the patient ,she was alert and oriented x2 and was responsive with a low voice. Resp is even and unlabored and the bilateral lung sounds are all clear on auscultation.Some episodes of agitations was noted when she refused body check.Bed alarm on,call light within reach and will continue to monitor.
[2019-10-06 20:00] VITALS: BP 110/70
[2019-10-06 20:41] LABS: BASOPHILS % (AUTO) 1.1 % (0.0-2.0); EOSINOPHILS % (AUTO) 3.7 % (0.0-3.0); HEMATOCRIT 36.7 % (37.0-47.0); HEMOGLOBIN 11.1 G/DL (12.0-16.0); LYMPHOCYTES % (AUTO) 23.6 % (20.0-45.0); MEAN CORPUSCULAR VOLUME 79 FL (80-99); MONOCYTES % (AUTO) 9.1 % (1.0-10.0); NEUTROPHILS % (AUTO) 62.5 % (45.0-75.0); PLATELET COUNT 360 K/UL (150-450); RED BLOOD COUNT 4.63 M/UL (4.20-5.40); RED CELL DISTRIBUTION WIDTH 13.9 % (11.6-14.8)
[2019-10-06] MEDS: Dyna-Hex 2% Top Sol 2oz TOPIC SCH (20:50)
[2019-10-06] MEDS: Phenytoin 100mg cap ORAL SCH (20:50)
[2019-10-06 20:59] LABS: ALBUMIN 0.7 G/DL (3.4-5.0); ALBUMIN/GLOBULIN RATIO 0.1 (1.0-2.7); ALKALINE PHOSPHATASE 138 U/L (46-116); ANION GAP 14 mmol/L (5-15); ASPARTATE AMINO TRANSFERASE 21 U/L (15-37); BILIRUBIN,TOTAL 0.2 MG/DL (0.2-1.0); BLOOD UREA NITROGEN 49 mg/dL (7-18); CARBON DIOXIDE 18 MMOL/L (21-32); CHLORIDE 114 MMOL/L (98-107); CREATININE 5.6 MG/DL (0.55-1.30); POTASSIUM 3.6 MMOL/L (3.5-5.1); SODIUM 146 MMOL/L (136-145)
[2019-10-06 21:03] LABS: ALANINE AMINOTRANSFERASE < 6 U/L (12-78); INR 1.1 (0.9-1.1)
[2019-10-07] VITALS (7 sets, daily range): BP systolic 90–118; BP diastolic 52–83
[2019-10-07] MEDS: Sodium Citrate 30ml ORAL SCH ×4 (02:05→22:15)
--- NOTE | 2019-10-07 05:02 | NUR ---
NURSE NOTES: The patient was able to sleep the entire night and only wakeup about 5:30 am , asked for for a snack , was given a cookies and she sleep back. The resp is even and unlabored the labs were drowned, Resp even and unlabored and will keep monitoring
[2019-10-07] MEDS: Levothyroxine 25mcg tab ORAL SCH (06:50)
--- NOTE | 2019-10-07 07:10 | NUR ---
HAND-OFF: Report given to Rachelle BELCHER, Patient remained at fall risks and the nurse was notified [].
[2019-10-07 07:25] LABS: HEMATOCRIT 31.3 % (37.0-47.0); HEMOGLOBIN 10.2 G/DL (12.0-16.0); MEAN CORPUSCULAR VOLUME 74 FL (80-99); PLATELET COUNT 369 K/UL (150-450); RED BLOOD COUNT 4.22 M/UL (4.20-5.40); RED CELL DISTRIBUTION WIDTH 11.9 % (11.6-14.8); WHITE BLOOD COUNT 12.3 K/UL (4.8-10.8)
--- NOTE | 2019-10-07 07:29 | NUR ---
NURSE NOTES: Patient awake and alert to name,respirations unlabored.Picc line to the upper left arm in place.Saini catheter in place and yellow urine noted in colledction bag.Bed alarm is on,call light within reach.
[2019-10-07 07:40] LABS: ALANINE AMINOTRANSFERASE 12 U/L (12-78); ALBUMIN 0.7 G/DL (3.4-5.0); ALBUMIN/GLOBULIN RATIO 0.1 (1.0-2.7); ALKALINE PHOSPHATASE 135 U/L (46-116); ANION GAP 14 mmol/L (5-15); ASPARTATE AMINO TRANSFERASE 20 U/L (15-37); BILIRUBIN,TOTAL 0.2 MG/DL (0.2-1.0); BLOOD UREA NITROGEN 47 mg/dL (7-18); CALCIUM 7.8 MG/DL (8.5-10.1); CARBON DIOXIDE 20 MMOL/L (21-32); CHLORIDE 114 MMOL/L (98-107); CREATININE 5.4 MG/DL (0.55-1.30); POTASSIUM 3.4 MMOL/L (3.5-5.1); SODIUM 148 MMOL/L (136-145)
[2019-10-07 07:49] LABS: PHOSPHORUS 5.7 MG/DL (2.5-4.9)
--- NOTE | 2019-10-07 08:50 | Pulmonology Progress Note ---
Subjective ROS Limited/Unobtainable: No Interval Events: none new Constitutional: Reports: no symptoms HEENT: Repors: no symptoms Respiratory: Reports: no symptoms Cardiovascular: Reports: no symptoms Allergies: Coded Allergies: No Known Allergies (Unverified , 10/02/19) All Systems: reviewed and negative except above Objective Last 24 Hour Vital Signs Date Time Temp Pulse Resp B/P (MAP) Pulse Ox O2 Delivery O2 Flow Rate FiO2 10/07/19 04:00 97.3 79 19 108/64 (79) 95 10/07/19 00:00 97.4 82 20 118/72 (87) 97 10/06/19 21:00 Room Air 10/06/19 20:00 98.8 84 18 110/70 (83) 95 10/06/19 16:00 97.4 79 17 114/81 (92) 97 10/06/19 12:00 97.4 82 18 115/80 (92) 95 10/06/19 10:29 Room Air 10/06/19 09:46 83 111/75 Intake and Output 10/06/19 10/07/19 19:00 07:00 Output Total 400 ml 450 ml Balance -400 ml -450 ml Output Urine Total 400 ml 450 ml # Voids 1 # Bowel Movements 1 General Appearance: no acute distress HEENT: normocephalic Respiratory: chest wall non-tender, lungs clear Cardiovascular: normal peripheral pulses Abdomen: normal bowel sounds Laboratory Tests 10/06/19 19:50: Prothrombin Time 12.4H, Prothromb Time International Ratio 1.1, Activated Partial Thromboplast Time 29, Sodium Level [Pending], Potassium Level [Pending] , Chloride Level [Pending], Carbon Dioxide Level [Pending], Anion Gap 14, Blood Urea Nitrogen [Pending], Creatinine [Pending], Estimat Glomerular Filtration Rate [Pending], Glucose Level [Pending], Uric Acid 5.9, Calcium Level [Pending] , Phosphorus Level 6.0H, Total Bilirubin [Pending], Aspartate Amino Transf (AST/ SGOT) [Pending], Alanine Aminotransferase (ALT/SGPT) [Pending], Alkaline Phosphatase [Pending], Lactate Dehydrogenase 410H, C-Reactive Protein, Quantitative 6.9H, Total Protein [Pending], Albumin [Pending], Globulin [Pending ], Albumin/Globulin Ratio 0.1L 5/16/20 20:30: White Blood Count 12.0H, Red Blood Count 4.63, Hemoglobin 11.1L, Hematocrit 36.7L, Mean Corpuscular Volume 79L, Mean Corpuscular Hemoglobin 24.0L, Mean Corpuscular Hemoglobin Concent 30.3L, Red Cell Distribution Width 13.9, Platelet Count 360, Mean Platelet Volume 7.1, Neutrophils (%) (Auto) 62.5, Lymphocytes (%) (Auto) 23.6, Monocytes (%) (Auto) 9.1, Eosinophils (%) (Auto) 3.7H, Basophils (%) (Auto) 1.1 10/07/19 06:30: Sodium Level 148H, Potassium Level 3.4L, Chloride Level 114H, Carbon Dioxide Level 20L, Anion Gap 14, Blood Urea Nitrogen 47H, Creatinine 5.4H, Estimat Glomerular Filtration Rate 9.9, Glucose Level 84, Calcium Level 7.8L, Phosphorus Level 5.7H, Total Bilirubin 0.2, Aspartate Amino Transf (AST/SGOT) 20 , Alanine Aminotransferase (ALT/SGPT) 12, Alkaline Phosphatase 135H, Total Protein 5.7L, Albumin 0.7L, Globulin 5.0, Albumin/Globulin Ratio 0.1L, White Blood Count 12.3H, Red Blood Count 4.22, Hemoglobin 10.2L, Hematocrit 31.3L, Mean Corpuscular Volume 74L, Mean Corpuscular Hemoglobin 24.1L, Mean Corpuscular Hemoglobin Concent 32.5, Red Cell Distribution Width 11.9, Platelet Count 369, Mean Platelet Volume 5.4L, Neutrophils (%) (Auto) , Lymphocytes (%) ( Auto) , Monocytes (%) (Auto) , Eosinophils (%) (Auto) , Basophils (%) (Auto) , Neutrophils % (Manual) [Pending], Lymphocytes % (Manual) [Pending], Platelet Estimate [Pending], Platelet Morphology [Pending], Magnesium Level 2.2, Ferritin 1919H, Pro-B-Type Natriuretic Peptide 805H, Hepatitis B Surface Antigen [Pending], Hepatitis B Surface Antibody, Quant [Pending], Hepatitis C Antibody [Pending] Current Medications Medications (Trade) Dose Ordered Sig/Avila Route PRN Reason Start Time Stop Time Status Last Admin Dose Admin Acetaminophen (Tylenol) 650 mg Q4HR PRN ORAL TEMP>100.5 10/02/19 03:15 Atenolol (Tenormin) 50 mg DAILY ORAL 10/02/19 09:00 11/01/19 08:59 10/06/19 09:46 Chlorhexidine Gluconate (Marlyn-Hex 2%) 1 applic DAILY@2000 TOPIC 10/04/19 20:00 01/02/20 19:59 10/06/19 20:50 Docusate Sodium (Colace) 100 mg TID ORAL 10/03/19 13:00 11/01/19 08:59 10/06/19 18:33 Folic Acid (Folate) 2 mg DAILY ORAL 10/03/19 10:00 11/02/19 09:59 10/06/19 09:47 Haloperidol Lactate (Haldol) 5 mg Q6H PRN IM Agitation 10/03/19 09:33 11/17/19 09:32 10/03/19 10:15 Heparin Sodium/ Sodium Chloride (Heparin 1000 units/500ml Premix) 1,000 unit ONCE PRN IV PICC 10/05/19 16:00 10/07/19 15:59 Levetiracetam (Keppra) 500 mg Q12HR ORAL 10/02/19 09:00 11/01/19 08:59 10/06/19 20:49 Levothyroxine Sodium (Synthroid) 25 mcg DAILY@0630 ORAL 10/03/19 06:30 11/02/19 06:29 10/07/19 06:50 Lidocaine HCl (Xylocaine 1% 30ml) 30 ml ONCE PRN INJ PICC 10/05/19 16:00 10/07/19 15:59 Meropenem 500 mg/ Sodium Chloride 55 ml @ 110 mls/hr Q24H IVPB 10/04/19 14:00 10/09/19 13:59 10/06/19 14:22 Phenytoin (Dilantin) 300 mg QHS ORAL 10/03/19 21:00 11/01/19 08:59 10/06/19 20:50 Quetiapine Fumarate (SEROqueL) 25 mg Q12HR ORAL 10/03/19 09:45 11/17/19 09:44 10/06/19 20:49 Sevelamer Carbonate (Renvela) 1,600 mg THREE TIMES A DAY ORAL 10/03/19 13:00 01/01/20 12:59 10/06/19 18:34 Sodium Citrate (Bicitra) 30 ml EVERY 8 HOURS ORAL 10/04/19 14:00 11/03/19 13:59 10/07/19 06:50 Assessment/Plan Assessment/Plan IMPRESSION: 1. Acute on chronic renal failure. 2. CHF. 3. Hyperlipidemia. 4. Hypothyroidism. 5. GERD. 6. Encephalopathy. 7. Positive COVID-19. 8. Seizure disorder. DISCUSSION: Continue antibiotics per ID. Currently saturating well on low- flow oxygen and room air. I will follow carefully. Esequiel Barrera M.D. Esequiel Barrera MD October 07, 2019 08:50
--- NOTE | 2019-10-07 09:48 | General Progress Note ---
Assessment/Plan Problem List: (1) Anemia ICD Codes: D64.9 - Anemia, unspecified SNOMED: 867967856 Qualifiers: Qualified Codes: D64.9 - Anemia, unspecified (2) Diabetes ICD Codes: E11.9 - Type 2 diabetes mellitus without complications SNOMED: 57718910 (3) Malnutrition ICD Codes: E46 - Unspecified protein-calorie malnutrition SNOMED: 46411912 (4) Weak ICD Codes: R53.1 - Weakness SNOMED: 82003635 (5) Sepsis ICD Codes: A41.9 - Sepsis, unspecified organism SNOMED: 11569038 (6) UTI (urinary tract infection) ICD Codes: N39.0 - Urinary tract infection, site not specified SNOMED: 51413823 Qualifiers: Qualified Codes: N30.00 - Acute cystitis without hematuria (7) HTN (hypertension) ICD Codes: I10 - Essential (primary) hypertension SNOMED: 95669746 (8) ARF (acute renal failure) ICD Codes: N17.9 - Acute kidney failure, unspecified SNOMED: 44765689 Qualifiers: Qualified Codes: N17.9 - Acute kidney failure, unspecified (9) Hypothyroid ICD Codes: E03.9 - Hypothyroidism, unspecified SNOMED: 60269806 (10) FTT (failure to thrive) in adult ICD Codes: R62.7 - Adult failure to thrive SNOMED: 358572698 (11) COVID-19 virus infection ICD Codes: U07.1 - COVID-19 SNOMED: 823754081 Status: unchanged Assessment/Plan: pt diet abx cbc bmp am Subjective Constitutional: Reports: weakness Allergies: Coded Allergies: No Known Allergies (Unverified , 10/02/19) All Systems: reviewed and negative except above Subjective sleepy calm Objective Last 24 Hour Vital Signs Date Time Temp Pulse Resp B/P (MAP) Pulse Ox O2 Delivery O2 Flow Rate FiO2 10/07/19 04:00 97.3 79 19 108/64 (79) 95 10/07/19 00:00 97.4 82 20 118/72 (87) 97 10/06/19 21:00 Room Air 10/06/19 20:00 98.8 84 18 110/70 (83) 95 10/06/19 16:00 97.4 79 17 114/81 (92) 97 10/06/19 12:00 97.4 82 18 115/80 (92) 95 10/06/19 10:29 Room Air Intake and Output 10/06/19 10/07/19 19:00 07:00 Output Total 400 ml 450 ml Balance -400 ml -450 ml Output Urine Total 400 ml 450 ml # Voids 1 # Bowel Movements 1 Laboratory Tests 10/06/19 19:50: Prothrombin Time 12.4H, Prothromb Time International Ratio 1.1, Activated Partial Thromboplast Time 29, Sodium Level [Pending], Potassium Level [Pending] , Chloride Level [Pending], Carbon Dioxide Level [Pending], Anion Gap 14, Blood Urea Nitrogen [Pending], Creatinine [Pending], Estimat Glomerular Filtration Rate [Pending], Glucose Level [Pending], Uric Acid 5.9, Calcium Level [Pending] , Phosphorus Level 6.0H, Total Bilirubin [Pending], Aspartate Amino Transf (AST/ SGOT) [Pending], Alanine Aminotransferase (ALT/SGPT) [Pending], Alkaline Phosphatase [Pending], Lactate Dehydrogenase 410H, C-Reactive Protein, Quantitative 6.9H, Total Protein [Pending], Albumin [Pending], Globulin [Pending ], Albumin/Globulin Ratio 0.1L 10/06/19 20:30: White Blood Count 12.0H, Red Blood Count 4.63, Hemoglobin 11.1L, Hematocrit 36.7L, Mean Corpuscular Volume 79L, Mean Corpuscular Hemoglobin 24.0L, Mean Corpuscular Hemoglobin Concent 30.3L, Red Cell Distribution Width 13.9, Platelet Count 360, Mean Platelet Volume 7.1, Neutrophils (%) (Auto) 62.5, Lymphocytes (%) (Auto) 23.6, Monocytes (%) (Auto) 9.1, Eosinophils (%) (Auto) 3.7H, Basophils (%) (Auto) 1.1 10/07/19 06:30: Sodium Level 148H, Potassium Level 3.4L, Chloride Level 114H, Carbon Dioxide Level 20L, Anion Gap 14, Blood Urea Nitrogen 47H, Creatinine 5.4H, Estimat Glomerular Filtration Rate 9.9, Glucose Level 84, Calcium Level 7.8L, Phosphorus Level 5.7H, Total Bilirubin 0.2, Aspartate Amino Transf (AST/SGOT) 20 , Alanine Aminotransferase (ALT/SGPT) 12, Alkaline Phosphatase 135H, Total Protein 5.7L, Albumin 0.7L, Globulin 5.0, Albumin/Globulin Ratio 0.1L, White Blood Count 12.3H, Red Blood Count 4.22, Hemoglobin 10.2L, Hematocrit 31.3L, Mean Corpuscular Volume 74L, Mean Corpuscular Hemoglobin 24.1L, Mean Corpuscular Hemoglobin Concent 32.5, Red Cell Distribution Width 11.9, Platelet Count 369, Mean Platelet Volume 5.4L, Neutrophils (%) (Auto) , Lymphocytes (%) ( Auto) , Monocytes (%) (Auto) , Eosinophils (%) (Auto) , Basophils (%) (Auto) , Differential Total Cells Counted 100, Neutrophils % (Manual) 63, Lymphocytes % ( Manual) 28, Monocytes % (Manual) 8, Eosinophils % (Manual) 1, Basophils % ( Manual) 0, Band Neutrophils 0, Platelet Estimate Adequate, Platelet Morphology Normal, Hypochromasia 1+, Microcytosis 1+, Magnesium Level 2.2, Ferritin 1919H, Pro-B-Type Natriuretic Peptide 805H, Hepatitis B Surface Antigen [Pending], Hepatitis B Surface Antibody, Quant [Pending], Hepatitis C Antibody [Pending] Height (Feet): 5 Height (Inches): 5.00 Weight (Pounds): 164 General Appearance: lethargic EENT: normal ENT inspection Neck: normal alignment Cardiovascular: normal rate, regular rhythm Respiratory/Chest: no respiratory distress, no accessory muscle use Extremities: normal inspection Skin: normal pigmentation Dustin Leija DO October 07, 2019 09:48
[2019-10-07] MEDS: Docusate 100mg cap ORAL SCH ×3 (10:19→19:28)
--- NOTE | 2019-10-07 11:20 | Nephrology Progress Note ---
Assessment/Plan Problem List: (1) ARF (acute renal failure) Assessment: Serum creatinine slightly lower (2) COVID-19 virus infection (3) Renal failure (ARF), acute on chronic (4) Hypoalbuminemia Assessment: Nephrotic range proteinuria (5) Anemia Assessment: Low MCV (6) Diabetes Assessment: Hemoglobin A1c is 6.4 (7) Seizure disorder Assessment Renal failure most likely acute superimposed on chronic 4+ proteinuria with severe hypoalbuminemia should rule out nephrotic syndrome COVID-19 virus infection UTI Anemia with low MCV, likely part due to iron deficiency Toxic metabolic encephalopathy History of seizures Plan October 06: Serum creatinine is down to 5.4 yet creatinine clearance still below 10 We will continue to monitor renal parameters Will decide for initiation of hemodialysis in the next 24 to 48 hours Previously: Discussed with Araseli Lawton is the daughter of the patient who agrees with initiation of hemodialysis Labs still pending for today October 05 Kidney ultrasound suggestive of chronic kidney disease also only the right kidney was visualized Patient has low creatinine clearance and requires dialysis treatment Will discuss with case management and or responsible green party regarding initiation of dialysis Meanwhile continue per current management and consultants Discussed with counseling case manager who will contact the daughter for the consent Meanwhile will discontinue hydration and continue to monitor renal parameters Saini catheter, 24-hour urine collection for protein-ordered results indicative of nephrotic range proteinuria Kidney ultrasound results checked patient has 1 kidney Avoid nephrotoxic's Urine studies Monitor renal parameters Antibiotics Continue per consultants Subjective ROS Limited/Unobtainable: No Constitutional: Reports: malaise Objective Objective Last 24 Hour Vital Signs Date Time Temp Pulse Resp B/P (MAP) Pulse Ox O2 Delivery O2 Flow Rate FiO2 10/07/19 10:33 Room Air 10/07/19 10:20 90 114/81 10/07/19 10:20 90 114/81 (92) 10/07/19 08:00 98.8 81 17 108/64 (79) 95 10/07/19 04:00 97.3 79 19 108/64 (79) 95 10/07/19 00:00 97.4 82 20 118/72 (87) 97 10/06/19 21:00 Room Air 10/06/19 20:00 98.8 84 18 110/70 (83) 95 10/06/19 16:00 97.4 79 17 114/81 (92) 97 10/06/19 12:00 97.4 82 18 115/80 (92) 95 Intake and Output 10/06/19 10/07/19 19:00 07:00 Output Total 400 ml 450 ml Balance -400 ml -450 ml Output Urine Total 400 ml 450 ml # Voids 1 # Bowel Movements 1 Current Medications Medications (Trade) Dose Ordered Sig/Avila Route PRN Reason Start Time Stop Time Status Last Admin Dose Admin Acetaminophen (Tylenol) 650 mg Q4HR PRN ORAL TEMP>100.5 10/02/19 03:15 Atenolol (Tenormin) 50 mg DAILY ORAL 10/02/19 09:00 11/01/19 08:59 10/07/19 10:20 Chlorhexidine Gluconate (Marlyn-Hex 2%) 1 applic DAILY@2000 TOPIC 10/04/19 20:00 01/02/20 19:59 10/06/19 20:50 Docusate Sodium (Colace) 100 mg TID ORAL 10/03/19 13:00 11/01/19 08:59 10/07/19 10:19 Folic Acid (Folate) 2 mg DAILY ORAL 10/03/19 10:00 11/02/19 09:59 10/07/19 10:19 Haloperidol Lactate (Haldol) 5 mg Q6H PRN IM Agitation 10/03/19 09:33 11/17/19 09:32 10/03/19 10:15 Heparin Sodium/ Sodium Chloride (Heparin 1000 units/500ml Premix) 1,000 unit ONCE PRN IV PICC 10/05/19 16:00 10/07/19 15:59 Levetiracetam (Keppra) 500 mg Q12HR ORAL 10/02/19 09:00 11/01/19 08:59 10/07/19 10:19 Levothyroxine Sodium (Synthroid) 25 mcg DAILY@0630 ORAL 10/03/19 06:30 11/02/19 06:29 10/07/19 06:50 Lidocaine HCl (Xylocaine 1% 30ml) 30 ml ONCE PRN INJ PICC 10/05/19 16:00 10/07/19 15:59 Meropenem 500 mg/ Sodium Chloride 55 ml @ 110 mls/hr Q24H IVPB 10/04/19 14:00 10/09/19 13:59 10/06/19 14:22 Phenytoin (Dilantin) 300 mg QHS ORAL 10/03/19 21:00 11/01/19 08:59 10/06/19 20:50 Quetiapine Fumarate (SEROqueL) 25 mg Q12HR ORAL 10/03/19 09:45 11/17/19 09:44 10/07/19 10:19 Sevelamer Carbonate (Renvela) 1,600 mg THREE TIMES A DAY ORAL 10/03/19 13:00 01/01/20 12:59 10/07/19 10:19 Sodium Citrate (Bicitra) 30 ml EVERY 8 HOURS ORAL 10/04/19 14:00 11/03/19 13:59 10/07/19 06:50 Laboratory Tests 10/06/19 19:50: Prothrombin Time 12.4H, Prothromb Time International Ratio 1.1, Activated Partial Thromboplast Time 29, Sodium Level [Pending], Potassium Level [Pending] , Chloride Level [Pending], Carbon Dioxide Level [Pending], Anion Gap 14, Blood Urea Nitrogen [Pending], Creatinine [Pending], Estimat Glomerular Filtration Rate [Pending], Glucose Level [Pending], Uric Acid 5.9, Calcium Level [Pending] , Phosphorus Level 6.0H, Total Bilirubin [Pending], Aspartate Amino Transf (AST/ SGOT) [Pending], Alanine Aminotransferase (ALT/SGPT) [Pending], Alkaline Phosphatase [Pending], Lactate Dehydrogenase 410H, C-Reactive Protein, Quantitative 6.9H, Total Protein [Pending], Albumin [Pending], Globulin [Pending ], Albumin/Globulin Ratio 0.1L 10/06/19 20:30: White Blood Count 12.0H, Red Blood Count 4.63, Hemoglobin 11.1L, Hematocrit 36.7L, Mean Corpuscular Volume 79L, Mean Corpuscular Hemoglobin 24.0L, Mean Corpuscular Hemoglobin Concent 30.3L, Red Cell Distribution Width 13.9, Platelet Count 360, Mean Platelet Volume 7.1, Neutrophils (%) (Auto) 62.5, Lymphocytes (%) (Auto) 23.6, Monocytes (%) (Auto) 9.1, Eosinophils (%) (Auto) 3.7H, Basophils (%) (Auto) 1.1 5/17/20 06:30: Sodium Level 148H, Potassium Level 3.4L, Chloride Level 114H, Carbon Dioxide Level 20L, Anion Gap 14, Blood Urea Nitrogen 47H, Creatinine 5.4H, Estimat Glomerular Filtration Rate 9.9, Glucose Level 84, Calcium Level 7.8L, Phosphorus Level 5.7H, Total Bilirubin 0.2, Aspartate Amino Transf (AST/SGOT) 20 , Alanine Aminotransferase (ALT/SGPT) 12, Alkaline Phosphatase 135H, Total Protein 5.7L, Albumin 0.7L, Globulin 5.0, Albumin/Globulin Ratio 0.1L, White Blood Count 12.3H, Red Blood Count 4.22, Hemoglobin 10.2L, Hematocrit 31.3L, Mean Corpuscular Volume 74L, Mean Corpuscular Hemoglobin 24.1L, Mean Corpuscular Hemoglobin Concent 32.5, Red Cell Distribution Width 11.9, Platelet Count 369, Mean Platelet Volume 5.4L, Neutrophils (%) (Auto) , Lymphocytes (%) ( Auto) , Monocytes (%) (Auto) , Eosinophils (%) (Auto) , Basophils (%) (Auto) , Differential Total Cells Counted 100, Neutrophils % (Manual) 63, Lymphocytes % ( Manual) 28, Monocytes % (Manual) 8, Eosinophils % (Manual) 1, Basophils % ( Manual) 0, Band Neutrophils 0, Platelet Estimate Adequate, Platelet Morphology Normal, Hypochromasia 1+, Microcytosis 1+, Magnesium Level 2.2, Ferritin 1919H, Pro-B-Type Natriuretic Peptide 805H, Hepatitis B Surface Antigen [Pending], Hepatitis B Surface Antibody, Quant [Pending], Hepatitis C Antibody [Pending] Height (Feet): 5 Height (Inches): 5.00 Weight (Pounds): 164 General Appearance: no apparent distress Cardiovascular: tachycardia Abdomen: soft Objective No change Yinka Boston MD October 07, 2019 11:20
[2019-10-07] MEDS: Meropenem 500 MG in NS 55 ML IVPB SCH (14:21)
[2019-10-07] MEDS ORDERED: NS 500ML ONE (15:58)
[2019-10-07] MEDS ORDERED: Tubing IV Secondary IV ONE (15:58)
--- NOTE | 2019-10-07 18:00 | NUR ---
NURSE NOTES: Patient resting,no sob noted Respirations remains unlabored. Continue to encourage patient to eat.Will take liquids but not food,skin care given,bed alarm on,call light within reach.
--- NOTE | 2019-10-07 19:17 | NUR ---
NURSE NOTES: HAND-OFF: Report given to Eligio RN,aware of fall risk.
--- NOTE | 2019-10-07 19:35 | NUR ---
NURSE NOTES: Received report from Rachelle BELCHER,the resident is awake and watching TV and is on RA. Resp is even and unlabored and the bilateral lung sounds are all clear on auscultation.Bed alarm on,call light within reach and will continue to monitor.
[2019-10-07] MEDS: Metoprolol Tartrate 12.5mg TAB ORAL SCH (21:00)
[2019-10-07] MEDS: Dyna-Hex 2% Top Sol 2oz TOPIC SCH (22:15)
[2019-10-07] MEDS: Phenytoin 100mg cap ORAL SCH (22:18)
[2019-10-08] VITALS: BP 91/61
[2019-10-08 04:00] VITALS: BP 92/60
[2019-10-08] MEDS: Levothyroxine 25mcg tab ORAL SCH (05:45)
[2019-10-08] MEDS: Sodium Citrate 30ml ORAL SCH (05:45)
[2019-10-08 07:09] LABS: BASOPHILS % (AUTO) 1.4 % (0.0-2.0); HEMATOCRIT 28.5 % (37.0-47.0); HEMOGLOBIN 9.4 G/DL (12.0-16.0); LYMPHOCYTES % (AUTO) 29.4 % (20.0-45.0); MEAN CORPUSCULAR VOLUME 75 FL (80-99); MONOCYTES % (AUTO) 9.7 % (1.0-10.0); NEUTROPHILS % (AUTO) 55.5 % (45.0-75.0); PLATELET COUNT 353 K/UL (150-450); RED BLOOD COUNT 3.79 M/UL (4.20-5.40); RED CELL DISTRIBUTION WIDTH 12.4 % (11.6-14.8); WHITE BLOOD COUNT 14.9 K/UL (4.8-10.8)
--- NOTE | 2019-10-08 07:15 | NUR ---
HAND-OFF: Report given to Lorenzo Arnett RN.
--- NOTE | 2019-10-08 07:20 | NUR ---
NURSE NOTES: Received patient in bed. Awake, Alert x1. On room air, PICC line in left upper arm, site intact with dressing in place. Patient denies pain. F/c in place draining yellow urine. Bed low and locked, call light within reach.
[2019-10-08 07:37] LABS: ANION GAP 12 mmol/L (5-15); BLOOD UREA NITROGEN 48 mg/dL (7-18); CALCIUM 7.2 MG/DL (8.5-10.1); CARBON DIOXIDE 22 MMOL/L (21-32); CHLORIDE 113 MMOL/L (98-107); CREATININE 5.4 MG/DL (0.55-1.30); POTASSIUM 3.1 MMOL/L (3.5-5.1); SODIUM 147 MMOL/L (136-145)
[2019-10-08 08:00] VITALS: BP 128/78
[2019-10-08] MEDS: Docusate 100mg cap ORAL SCH ×3 (08:31→17:59)
[2019-10-08] MEDS: Metoprolol Tartrate 12.5mg TAB ORAL SCH ×2 (08:31→20:20)
[2019-10-08 08:59] LABS: ALANINE AMINOTRANSFERASE 11 U/L (12-78); ALBUMIN 0.6 G/DL (3.4-5.0); ALKALINE PHOSPHATASE 128 U/L (46-116); ASPARTATE AMINO TRANSFERASE 20 U/L (15-37); BILIRUBIN,DIRECT < 0.1 MG/DL (0.0-0.3); BILIRUBIN,TOTAL 0.1 MG/DL (0.2-1.0); PHOSPHORUS 5.3 MG/DL (2.5-4.9)
--- NOTE | 2019-10-08 09:07 | Pulmonology Progress Note ---
Subjective ROS Limited/Unobtainable: No Interval Events: none new Constitutional: Reports: no symptoms HEENT: Repors: no symptoms Respiratory: Reports: no symptoms Cardiovascular: Reports: no symptoms Allergies: Coded Allergies: No Known Allergies (Unverified , 10/02/19) All Systems: reviewed and negative except above Objective Last 24 Hour Vital Signs Date Time Temp Pulse Resp B/P (MAP) Pulse Ox O2 Delivery O2 Flow Rate FiO2 10/08/19 08:31 79 128/78 10/08/19 04:00 98.4 90 20 92/60 (71) 95 10/08/19 00:00 98.5 18 91/61 (71) 96 10/07/19 21:00 79 90/52 10/07/19 21:00 Room Air 10/07/19 20:00 98.8 79 18 90/52 (65) 96 10/07/19 16:00 98.0 96 19 99/73 (82) 95 10/07/19 12:00 98.4 83 19 110/83 (92) 95 10/07/19 10:33 Room Air 10/07/19 10:20 90 114/81 10/07/19 10:20 90 114/81 (92) Intake and Output 10/07/19 10/08/19 19:00 07:00 Intake Total 500 ml 360 ml Output Total 1400 ml Balance 500 ml -1040 ml Intake Oral 360 ml IV Total 500 ml Output Urine Total 1400 ml # Voids 1 General Appearance: no acute distress HEENT: normocephalic Respiratory: chest wall non-tender, lungs clear Cardiovascular: normal peripheral pulses Abdomen: normal bowel sounds Laboratory Tests 10/08/19 05:30: White Blood Count 14.9H, Red Blood Count 3.79L, Hemoglobin 9.4L, Hematocrit 28.5L, Mean Corpuscular Volume 75L, Mean Corpuscular Hemoglobin 24.8L, Mean Corpuscular Hemoglobin Concent 33.0, Red Cell Distribution Width 12.4, Platelet Count 353, Mean Platelet Volume 5.1L, Neutrophils (%) (Auto) 55.5, Lymphocytes ( %) (Auto) 29.4, Monocytes (%) (Auto) 9.7, Eosinophils (%) (Auto) 4.0H, Basophils (%) (Auto) 1.4, Sodium Level 147H, Potassium Level 3.1L, Chloride Level 113H, Carbon Dioxide Level 22, Anion Gap 12, Blood Urea Nitrogen 48H, Creatinine 5.4H, Estimat Glomerular Filtration Rate 9.9, Glucose Level 84, Uric Acid 5.7, Calcium Level 7.2L, Phosphorus Level 5.3H, Magnesium Level 2.4, Total Bilirubin 0.1L, Direct Bilirubin < 0.1, Aspartate Amino Transf (AST/SGOT) 20, Alanine Aminotransferase (ALT/SGPT) 11L, Alkaline Phosphatase 128H, Total Protein 5.1L, Albumin 0.6L, Phenytoin (Dilantin) Level 4.4L Current Medications Medications (Trade) Dose Ordered Sig/Avila Route PRN Reason Start Time Stop Time Status Last Admin Dose Admin Acetaminophen (Tylenol) 650 mg Q4HR PRN ORAL TEMP>100.5 10/02/19 03:15 Chlorhexidine Gluconate (Marlyn-Hex 2%) 1 applic DAILY@2000 TOPIC 10/04/19 20:00 01/02/20 19:59 10/07/19 22:15 Docusate Sodium (Colace) 100 mg TID ORAL 10/03/19 13:00 11/01/19 08:59 10/08/19 08:31 Folic Acid (Folate) 2 mg DAILY ORAL 10/03/19 10:00 11/02/19 09:59 10/08/19 08:31 Haloperidol Lactate (Haldol) 5 mg Q6H PRN IM Agitation 10/03/19 09:33 11/17/19 09:32 10/03/19 10:15 Levetiracetam (Keppra) 500 mg Q12HR ORAL 10/02/19 09:00 11/01/19 08:59 10/08/19 08:31 Levothyroxine Sodium (Synthroid) 25 mcg DAILY@0630 ORAL 10/03/19 06:30 11/02/19 06:29 10/08/19 05:45 Meropenem 500 mg/ Sodium Chloride 55 ml @ 110 mls/hr Q24H IVPB 10/04/19 14:00 10/10/19 23:59 10/07/19 14:21 Metoprolol Tartrate (Lopressor) 12.5 mg Q12HR ORAL 10/07/19 21:00 01/05/20 20:59 5/18/20 08:31 Phenytoin (Dilantin) 300 mg QHS ORAL 10/03/19 21:00 11/01/19 08:59 10/07/19 22:18 Potassium Chloride (K-Dur) 20 meq TWICE A DAY ORAL 10/08/19 09:00 10/09/19 08:59 10/08/19 08:31 Quetiapine Fumarate (SEROqueL) 25 mg Q12HR ORAL 10/03/19 09:45 11/17/19 09:44 10/08/19 08:30 Sevelamer Carbonate (Renvela) 1,600 mg THREE TIMES A DAY ORAL 10/03/19 13:00 01/01/20 12:59 10/08/19 08:30 Assessment/Plan Assessment/Plan IMPRESSION: 1. Acute on chronic renal failure. 2. CHF. 3. Hyperlipidemia. 4. Hypothyroidism. 5. GERD. 6. Encephalopathy. 7. Positive COVID-19. 8. Seizure disorder. DISCUSSION: Continue antibiotics per ID. Currently saturating well on low- flow oxygen and room air. I will follow carefully. Esequiel Barrera M.D. Esequiel Barrera MD October 08, 2019 09:07
--- NOTE | 2019-10-08 09:52 | General Progress Note ---
Assessment/Plan Problem List: (1) Anemia ICD Codes: D64.9 - Anemia, unspecified SNOMED: 810211722 Qualifiers: Qualified Codes: D64.9 - Anemia, unspecified (2) Diabetes ICD Codes: E11.9 - Type 2 diabetes mellitus without complications SNOMED: 56442941 (3) Malnutrition ICD Codes: E46 - Unspecified protein-calorie malnutrition SNOMED: 14404418 (4) Weak ICD Codes: R53.1 - Weakness SNOMED: 97102577 (5) Sepsis ICD Codes: A41.9 - Sepsis, unspecified organism SNOMED: 09666455 (6) UTI (urinary tract infection) ICD Codes: N39.0 - Urinary tract infection, site not specified SNOMED: 00474933 Qualifiers: Qualified Codes: N30.00 - Acute cystitis without hematuria (7) HTN (hypertension) ICD Codes: I10 - Essential (primary) hypertension SNOMED: 10233356 (8) ARF (acute renal failure) ICD Codes: N17.9 - Acute kidney failure, unspecified SNOMED: 11522866 Qualifiers: Qualified Codes: N17.9 - Acute kidney failure, unspecified (9) Hypothyroid ICD Codes: E03.9 - Hypothyroidism, unspecified SNOMED: 83708653 (10) FTT (failure to thrive) in adult ICD Codes: R62.7 - Adult failure to thrive SNOMED: 088677531 (11) COVID-19 virus infection ICD Codes: U07.1 - COVID-19 SNOMED: 799583713 Status: unchanged Assessment/Plan: pt diet abx cbc bmp am Subjective Constitutional: Reports: weakness Allergies: Coded Allergies: No Known Allergies (Unverified , 10/02/19) All Systems: reviewed and negative except above Subjective sleepy calm Objective Last 24 Hour Vital Signs Date Time Temp Pulse Resp B/P (MAP) Pulse Ox O2 Delivery O2 Flow Rate FiO2 10/08/19 09:00 Room Air 10/08/19 08:31 79 128/78 10/08/19 08:00 98.5 79 18 128/78 (95) 97 10/08/19 04:00 98.4 90 20 92/60 (71) 95 10/08/19 00:00 98.5 18 91/61 (71) 96 10/07/19 21:00 79 90/52 10/07/19 21:00 Room Air 10/07/19 20:00 98.8 79 18 90/52 (65) 96 10/07/19 16:00 98.0 96 19 99/73 (82) 95 10/07/19 12:00 98.4 83 19 110/83 (92) 95 10/07/19 10:33 Room Air 10/07/19 10:20 90 114/81 10/07/19 10:20 90 114/81 (92) Intake and Output 10/07/19 10/08/19 19:00 07:00 Intake Total 500 ml 360 ml Output Total 1400 ml Balance 500 ml -1040 ml Intake Oral 360 ml IV Total 500 ml Output Urine Total 1400 ml # Voids 1 Laboratory Tests 10/08/19 05:30: White Blood Count 14.9H, Red Blood Count 3.79L, Hemoglobin 9.4L, Hematocrit 28.5L, Mean Corpuscular Volume 75L, Mean Corpuscular Hemoglobin 24.8L, Mean Corpuscular Hemoglobin Concent 33.0, Red Cell Distribution Width 12.4, Platelet Count 353, Mean Platelet Volume 5.1L, Neutrophils (%) (Auto) 55.5, Lymphocytes ( %) (Auto) 29.4, Monocytes (%) (Auto) 9.7, Eosinophils (%) (Auto) 4.0H, Basophils (%) (Auto) 1.4, Sodium Level 147H, Potassium Level 3.1L, Chloride Level 113H, Carbon Dioxide Level 22, Anion Gap 12, Blood Urea Nitrogen 48H, Creatinine 5.4H, Estimat Glomerular Filtration Rate 9.9, Glucose Level 84, Uric Acid 5.7, Calcium Level 7.2L, Phosphorus Level 5.3H, Magnesium Level 2.4, Total Bilirubin 0.1L, Direct Bilirubin < 0.1, Aspartate Amino Transf (AST/SGOT) 20, Alanine Aminotransferase (ALT/SGPT) 11L, Alkaline Phosphatase 128H, Total Protein 5.1L, Albumin 0.6L, Phenytoin (Dilantin) Level 4.4L Height (Feet): 5 Height (Inches): 5.00 Weight (Pounds): 164 General Appearance: lethargic EENT: normal ENT inspection Neck: normal alignment Cardiovascular: normal rate, regular rhythm Respiratory/Chest: no respiratory distress, no accessory muscle use Extremities: normal inspection Skin: normal pigmentation Dustin Leija DO October 08, 2019 09:52
--- NOTE | 2019-10-08 10:29 | Nephrology Progress Note ---
Assessment/Plan Problem List: (1) ARF (acute renal failure) Assessment: Serum creatinine slightly lower (2) COVID-19 virus infection (3) Renal failure (ARF), acute on chronic (4) Hypoalbuminemia Assessment: Nephrotic range proteinuria (5) Anemia Assessment: Low MCV (6) Diabetes Assessment: Hemoglobin A1c is 6.4 (7) Seizure disorder Assessment Renal failure most likely acute superimposed on chronic 4+ proteinuria with severe hypoalbuminemia should rule out nephrotic syndrome COVID-19 virus infection UTI Anemia with low MCV, likely part due to iron deficiency Toxic metabolic encephalopathy History of seizures Plan October 07: Serum creatinine 5.4 unchanged Creatinine clearance below 10 Will proceed with hemodialysis and dialysis catheter placement October 06: Serum creatinine is down to 5.4 yet creatinine clearance still below 10 We will continue to monitor renal parameters Will decide for initiation of hemodialysis in the next 24 to 48 hours Previously: Discussed with Araseli Lawton is the daughter of the patient who agrees with initiation of hemodialysis Labs still pending for today October 05 Kidney ultrasound suggestive of chronic kidney disease also only the right kidney was visualized Patient has low creatinine clearance and requires dialysis treatment Will discuss with case management and or responsible constitution party regarding initiation of dialysis Meanwhile continue per current management and consultants Discussed with case investigator who will contact the daughter for the consent Meanwhile will discontinue hydration and continue to monitor renal parameters Saini catheter, 24-hour urine collection for protein-ordered results indicative of nephrotic range proteinuria Kidney ultrasound results checked patient has 1 kidney Avoid nephrotoxic's Urine studies Monitor renal parameters Antibiotics Continue per consultants Subjective ROS Limited/Unobtainable: No Constitutional: Reports: malaise Objective Objective Last 24 Hour Vital Signs Date Time Temp Pulse Resp B/P (MAP) Pulse Ox O2 Delivery O2 Flow Rate FiO2 10/08/19 09:00 Room Air 10/08/19 08:31 79 128/78 10/08/19 08:00 98.5 79 18 128/78 (95) 97 10/08/19 04:00 98.4 90 20 92/60 (71) 95 10/08/19 00:00 98.5 18 91/61 (71) 96 10/07/19 21:00 79 90/52 10/07/19 21:00 Room Air 10/07/19 20:00 98.8 79 18 90/52 (65) 96 10/07/19 16:00 98.0 96 19 99/73 (82) 95 10/07/19 12:00 98.4 83 19 110/83 (92) 95 10/07/19 10:33 Room Air Intake and Output 10/07/19 10/08/19 19:00 07:00 Intake Total 500 ml 360 ml Output Total 1400 ml Balance 500 ml -1040 ml Intake Oral 360 ml IV Total 500 ml Output Urine Total 1400 ml # Voids 1 Laboratory Tests 10/08/19 05:30: White Blood Count 14.9H, Red Blood Count 3.79L, Hemoglobin 9.4L, Hematocrit 28.5L, Mean Corpuscular Volume 75L, Mean Corpuscular Hemoglobin 24.8L, Mean Corpuscular Hemoglobin Concent 33.0, Red Cell Distribution Width 12.4, Platelet Count 353, Mean Platelet Volume 5.1L, Neutrophils (%) (Auto) 55.5, Lymphocytes ( %) (Auto) 29.4, Monocytes (%) (Auto) 9.7, Eosinophils (%) (Auto) 4.0H, Basophils (%) (Auto) 1.4, Sodium Level 147H, Potassium Level 3.1L, Chloride Level 113H, Carbon Dioxide Level 22, Anion Gap 12, Blood Urea Nitrogen 48H, Creatinine 5.4H, Estimat Glomerular Filtration Rate 9.9, Glucose Level 84, Uric Acid 5.7, Calcium Level 7.2L, Phosphorus Level 5.3H, Magnesium Level 2.4, Total Bilirubin 0.1L, Direct Bilirubin < 0.1, Aspartate Amino Transf (AST/SGOT) 20, Alanine Aminotransferase (ALT/SGPT) 11L, Alkaline Phosphatase 128H, Total Protein 5.1L, Albumin 0.6L, Phenytoin (Dilantin) Level 4.4L Height (Feet): 5 Height (Inches): 5.00 Weight (Pounds): 164 General Appearance: no apparent distress, lethargic Respiratory/Chest: decreased breath sounds Abdomen: soft Objective No change Yinka Boston MD October 08, 2019 10:29
[2019-10-08 12:00] VITALS: BP 126/75
[2019-10-08] MEDS: Meropenem 500 MG in NS 55 ML IVPB SCH (14:07)
--- NOTE | 2019-10-08 15:13 | NUR ---
CASE MANAGEMENT:REVIEW SI;COVID-19 VIRAL INFECTION SEPSIS. UTI. FTT. ACUTE RENAL FAILURE. HYPOALBUMINEMIA. 98.8 90 20 90/52 95% ON RA WBC 14.9 NA 147 K+ 3.1 BUN 48 CR 5.4 CA 7.2 ALB 0.6 IS;K-FUR PO BID LOPRESSOR PO Q12 HRS RICARDO-HEX TOP QD MEROPENEM IV Q24 HRS DILANTIN PO QHS KEPPRA PO Q12 HRS SYNTHROID PO QD MED SURG STATUS DCP;FROM [facility] PLAN OF CARE; START HEMODIALYSIS CONTINUE ABX MONITOR RENAL PARAMETERS
[2019-10-08 15:54] VITALS: BP 100/56
--- NOTE | 2019-10-08 16:06 | Infectious Diseases Prog Note ---
Assessment/Plan Assessment/Plan Assessment: COVID positive (tested positive on 09/20)-still positive -10/01 CXR: There is some crowding of bronchovascular markings at the left lung base. Left costophrenic sulcus is obscured, small pleural effusion likely. SARS-COV2 PCR + UTI -u/a wbc tnct, nit +, leuk +2; ucx >100k M, morganii, probable Amp-C (R amp, Ancef, macrobid; S Ceftriaxone), >100k E.coli (I Amp; otherwise S), >100k mixed gram positive -Bcx NTD Afebrile Leukocytosis; fluctuating BOB on CKD (cr 10.4)- last Cr available was 1.4 on 2005- improving -Renal US: LIMITED STUDY DUE TO PATIENT'S BODY HABITUS. LEFT KIDNEY NOT VISUALIZED.CORTICAL THINNING AND INCREASED CORTICAL ECHOGENICITY OF THE RIGHT KIDNEY REFLECTING MEDICAL RENAL DISEASE. SMALL RENAL CYST NOTED BUT NO SIGN OF OBSTRUCTIVE UROPATHY. CHF HLD hypothyroidism GERD seizure disorder [place] resident Plan: -Continue Meropenem #5(abx d #/-10) for UTI -10/01 SP Azithromycin x1 -f/u cx -Monitor CBC/CMP, temperatures -COVID19 isolation; still positive on repeat test on 10/01 -Nephro f/u -aspiration precautions -Cdiff if diarrhea Thank you for consulting [facility]. Will continue to follow along with you. Discussed with RN, Subjective Allergies: Coded Allergies: No Known Allergies (Unverified , 10/02/19) Subjective at RA afebrile leukocytosis fluctuating Objective Vital Signs Last 24 Hour Vital Signs Date Time Temp Pulse Resp B/P (MAP) Pulse Ox O2 Delivery O2 Flow Rate FiO2 10/08/19 15:54 98.4 99 20 100/56 (71) 98 10/08/19 12:00 98.3 83 19 126/75 (92) 98 10/08/19 09:00 Room Air 10/08/19 08:31 79 128/78 10/08/19 08:00 98.5 79 18 128/78 (95) 97 10/08/19 04:00 98.4 90 20 92/60 (71) 95 10/08/19 00:00 98.5 18 91/61 (71) 96 10/07/19 21:00 79 90/52 10/07/19 21:00 Room Air 10/07/19 20:00 98.8 79 18 90/52 (65) 96 Height (Feet): 5 Height (Inches): 5.00 Weight (Pounds): 164 Objective not examined to limit COVID19 exposure Laboratory Tests Test 10/08/19 05:30 White Blood Count 14.9 K/UL (4.8-10.8) H Red Blood Count 3.79 M/UL (4.20-5.40) L Hemoglobin 9.4 G/DL (12.0-16.0) L Hematocrit 28.5 % (37.0-47.0) L Mean Corpuscular Volume 75 FL (80-99) L Mean Corpuscular Hemoglobin 24.8 PG (27.0-31.0) L Mean Corpuscular Hemoglobin Concent 33.0 G/DL (32.0-36.0) Red Cell Distribution Width 12.4 % (11.6-14.8) Platelet Count 353 K/UL (150-450) Mean Platelet Volume 5.1 FL (6.5-10.1) L Neutrophils (%) (Auto) 55.5 % (45.0-75.0) Lymphocytes (%) (Auto) 29.4 % (20.0-45.0) Monocytes (%) (Auto) 9.7 % (1.0-10.0) Eosinophils (%) (Auto) 4.0 % (0.0-3.0) H Basophils (%) (Auto) 1.4 % (0.0-2.0) Sodium Level 147 MMOL/L (136-145) H Potassium Level 3.1 MMOL/L (3.5-5.1) L Chloride Level 113 MMOL/L (98-107) H Carbon Dioxide Level 22 MMOL/L (21-32) Anion Gap 12 mmol/L (5-15) Blood Urea Nitrogen 48 mg/dL (7-18) H Creatinine 5.4 MG/DL (0.55-1.30) H Estimat Glomerular Filtration Rate 9.9 mL/min (>60) Glucose Level 84 MG/DL (74-106) Uric Acid 5.7 MG/DL (2.6-7.2) Calcium Level 7.2 MG/DL (8.5-10.1) L Phosphorus Level 5.3 MG/DL (2.5-4.9) H Magnesium Level 2.4 MG/DL (1.8-2.4) Total Bilirubin 0.1 MG/DL (0.2-1.0) L Direct Bilirubin < 0.1 MG/DL (0.0-0.3) Aspartate Amino Transf (AST/SGOT) 20 U/L (15-37) Alanine Aminotransferase (ALT/SGPT) 11 U/L (12-78) L Alkaline Phosphatase 128 U/L (46-116) H Total Protein 5.1 G/DL (6.4-8.2) L Albumin 0.6 G/DL (3.4-5.0) L Phenytoin (Dilantin) Level 4.4 ug/mL (10-20) L Current Medications Medications (Trade) Dose Ordered Sig/Avila Route PRN Reason Start Time Stop Time Status Last Admin Dose Admin Acetaminophen (Tylenol) 650 mg Q4HR PRN ORAL TEMP>100.5 10/02/19 03:15 Chlorhexidine Gluconate (Marlyn-Hex 2%) 1 applic DAILY@1999 TOPIC 10/04/19 20:00 01/02/20 19:59 10/07/19 22:15 Docusate Sodium (Colace) 100 mg TID ORAL 10/03/19 13:00 11/01/19 08:59 10/08/19 12:21 Folic Acid (Folate) 2 mg DAILY ORAL 10/03/19 10:00 11/02/19 09:59 10/08/19 08:31 Haloperidol Lactate (Haldol) 5 mg Q6H PRN IM Agitation 10/03/19 09:33 11/17/19 09:32 10/03/19 10:15 Levetiracetam (Keppra) 500 mg Q12HR ORAL 10/02/19 09:00 11/01/19 08:59 10/08/19 08:31 Levothyroxine Sodium (Synthroid) 25 mcg DAILY@0630 ORAL 10/03/19 06:30 11/02/19 06:29 10/08/19 05:45 Meropenem 500 mg/ Sodium Chloride 55 ml @ 110 mls/hr Q24H IVPB 10/04/19 14:00 10/10/19 23:59 10/08/19 14:07 Metoprolol Tartrate (Lopressor) 12.5 mg Q12HR ORAL 10/07/19 21:00 01/05/20 20:59 10/08/19 08:31 Phenytoin (Dilantin) 300 mg QHS ORAL 10/03/19 21:00 11/01/19 08:59 10/07/19 22:18 Potassium Chloride (K-Dur) 20 meq TWICE A DAY ORAL 10/08/19 09:00 10/09/19 08:59 10/08/19 08:31 Quetiapine Fumarate (SEROqueL) 25 mg Q12HR ORAL 10/03/19 09:45 11/17/19 09:44 10/08/19 08:30 Sevelamer Carbonate (Renvela) 1,600 mg THREE TIMES A DAY ORAL 10/03/19 13:00 01/01/20 12:59 10/08/19 12:21 Marie Ross M.D. October 08, 2019 16:06
[2019-10-08] MEDS ORDERED: Heparin1,000 units/500ml Premix(Conc:2 units/ml) IV PRN (17:00)
[2019-10-08] MEDS ORDERED: Lidocaine 1% Plain 30 ml INJ PRN (17:00)
--- NOTE | 2019-10-08 17:00 | NUR ---
NURSE NOTES: Patient refusing to use a face mask to go down to radiology for procedure. Patient educated on use of mask, patient continued to refuse and became combative. PRN IM haldol given, patient continued to refuse. Dr. Boston made aware. Left message with Dr. Kingsley.
[2019-10-08] MEDS: Haloperidol 5mg/ml Inj IM PRN (17:03)
--- NOTE | 2019-10-08 19:12 | NUR ---
HAND-OFF: Report given to Tanja BELCHER.
--- NOTE | 2019-10-08 19:21 | NUR ---
NURSE NOTES: Received patient in bed, awake, alert/oriented x1, gets easily confused and disoriented, PICC line is dry clean and intact, patient has a Saini catheter 16 FR secured, draining well. Call light is within reach, bed is lowered, locked, alarm is on. Will continue to monitor for comfort and safety.
[2019-10-08] MEDS: Dyna-Hex 2% Top Sol 2oz TOPIC SCH (20:19)
[2019-10-08] MEDS: Phenytoin 100mg cap ORAL SCH (20:20)
[2019-10-08 20:24] VITALS: BP 136/70
[2019-10-09] VITALS: BP 102/77
[2019-10-09] MEDS: Haloperidol 5mg/ml Inj IM PRN (00:44)
--- NOTE | 2019-10-09 00:56 | NUR ---
NURSE NOTES: Patient pulled out PICC line, CN was made aware, MD was notified.
[2019-10-09] MEDS ORDERED: Lidocaine 1% Plain 30 ml INJ PRN (05:30)
[2019-10-09] MEDS ORDERED: Heparin1,000 units/500ml Premix(Conc:2 units/ml) IV PRN (05:30)
--- NOTE | 2019-10-09 05:44 | Progress Note ---
DATE: 10/08/2019 SUBJECTIVE: The patient is having episodes of agitation is unable to redirect and unchanged since previous encounter. MENTAL STATUS EXAMINATION: The patient is awake, oriented to one only. The patient's mood is agitated. Affect is flat. Thought process, disorganized. Thought content, no suicidal or homicidal ideation. Cognition is impaired. Insight and judgment are impaired. ASSESSMENT: Acute encephalopathy. PLAN: Discussed with the patient's nurse. Apparently, earlier, the patient was going to be taken down to the labs, refusing to wear a mask. The patient was calm during my evaluation, reluctant to sedate the patient as the patient may deteriorate and end up in higher level of care. Alex Kingsley M.D. DR: ZOË JOB#: [id number] CC: ZEFERINO
[2019-10-09] MEDS: Levothyroxine 25mcg tab ORAL SCH (06:07)
--- NOTE | 2019-10-09 06:12 | NUR ---
NURSE NOTES: PICC line placement consent is obtained via telephone by RN with patients daughter Uma Paz. CN was made aware. Patient refused am labs.
--- NOTE | 2019-10-09 07:23 | NUR ---
HAND-OFF: Report given to Anahi BELCHER.
--- NOTE | 2019-10-09 07:30 | NUR ---
NURSE NOTES: Received patient lying in semi-diaz's position in hospital bed with padded bilateral side rails for seizure precautions, awake, alert and confused. Patient is on RA satting at 97%with no s/s of distress nor any c/o pain. Patient is able to make some needs known, able to self-reposition and requires some assistance in feeding. Patient pulled her PICC line last night and has no IV access at this time. SCDs placed on BLE for DVT ppx. Patient has a land in place with clear yellowish urine noted in bag. Bed on lowest position. Call light within reach. Will continue POC.
--- NOTE | 2019-10-09 07:33 | NUR ---
NURSE NOTES: Called lab to request assistance for lab draw as patient is a hard stick and was refusing blood draw during previous shift nurse's attempt. Per lab, they will send someone to draw patient.
[2019-10-09 08:00] VITALS: BP 108/69
[2019-10-09] MEDS: Metoprolol Tartrate 12.5mg TAB ORAL SCH ×2 (09:00→20:43)
[2019-10-09] MEDS: Docusate 100mg cap ORAL SCH ×3 (09:53→18:46)
--- NOTE | 2019-10-09 09:57 | Pulmonology Progress Note ---
Subjective ROS Limited/Unobtainable: No Interval Events: none new Constitutional: Reports: no symptoms HEENT: Repors: no symptoms Respiratory: Reports: no symptoms Cardiovascular: Reports: no symptoms Allergies: Coded Allergies: No Known Allergies (Unverified , 10/02/19) All Systems: reviewed and negative except above Objective Last 24 Hour Vital Signs Date Time Temp Pulse Resp B/P (MAP) Pulse Ox O2 Delivery O2 Flow Rate FiO2 10/09/19 09:00 98 108/69 10/09/19 00:00 98.2 100 24 102/77 (85) 96 10/08/19 21:03 Room Air 10/08/19 20:24 97.0 86 18 136/70 (92) 98 10/08/19 20:20 87 136/77 10/08/19 15:54 98.4 99 20 100/56 (71) 98 10/08/19 12:00 98.3 83 19 126/75 (92) 98 Intake and Output 10/08/19 10/09/19 19:00 07:00 Intake Total 800 ml Output Total 600 ml 600 ml Balance 200 ml -600 ml Intake Oral 800 ml Output Urine Total 600 ml 600 ml # Bowel Movements 2 General Appearance: no acute distress HEENT: normocephalic Respiratory: chest wall non-tender, lungs clear Cardiovascular: normal peripheral pulses Abdomen: normal bowel sounds Current Medications Medications (Trade) Dose Ordered Sig/Avila Route PRN Reason Start Time Stop Time Status Last Admin Dose Admin Acetaminophen (Tylenol) 650 mg Q4HR PRN ORAL TEMP>100.5 10/02/19 03:15 Chlorhexidine Gluconate (Marlyn-Hex 2%) 1 applic DAILY@1999 TOPIC 10/04/19 20:00 01/02/20 19:59 10/08/19 20:19 Docusate Sodium (Colace) 100 mg TID ORAL 10/03/19 13:00 11/01/19 08:59 10/09/19 09:53 Folic Acid (Folate) 2 mg DAILY ORAL 10/03/19 10:00 11/02/19 09:59 10/09/19 09:52 Haloperidol Lactate (Haldol) 5 mg Q6H PRN IM Agitation 10/03/19 09:33 11/17/19 09:32 10/09/19 00:44 Heparin Sodium/ Sodium Chloride (Heparin 1000 units/500ml Premix) 1,000 unit ONCE PRN IV radiology procedure 10/08/19 17:00 10/10/19 16:59 Heparin Sodium/ Sodium Chloride (Heparin 1000 units/500ml Premix) 1,000 unit ONCE PRN IV PICC LINE PLACEMENT 10/09/19 05:30 10/11/19 05:29 Levetiracetam (Keppra) 500 mg Q12HR ORAL 10/02/19 09:00 11/01/19 08:59 10/09/19 09:52 Levothyroxine Sodium (Synthroid) 25 mcg DAILY@0630 ORAL 10/03/19 06:30 11/02/19 06:29 10/08/19 05:45 Lidocaine HCl (Xylocaine 1% 30ml) 30 ml ONCE PRN INJ radiology procedure 10/08/19 17:00 10/10/19 16:59 Lidocaine HCl (Xylocaine 1% 30ml) 30 ml ONCE PRN INJ PICC LINE PLACEMENT 10/09/19 05:30 01/07/20 05:29 Meropenem 500 mg/ Sodium Chloride 55 ml @ 110 mls/hr Q24H IVPB 10/04/19 14:00 10/10/19 23:59 10/08/19 14:07 Metoprolol Tartrate (Lopressor) 12.5 mg Q12HR ORAL 10/07/19 21:00 01/05/20 20:59 10/08/19 20:20 Phenytoin (Dilantin) 300 mg QHS ORAL 10/03/19 21:00 11/01/19 08:59 10/08/19 20:20 Quetiapine Fumarate (SEROqueL) 25 mg Q12HR ORAL 10/03/19 09:45 11/17/19 09:44 10/09/19 09:52 Sevelamer Carbonate (Renvela) 1,600 mg THREE TIMES A DAY ORAL 10/03/19 13:00 01/01/20 12:59 10/08/19 17:59 Assessment/Plan Assessment/Plan IMPRESSION: 1. Acute on chronic renal failure. 2. CHF. 3. Hyperlipidemia. 4. Hypothyroidism. 5. GERD. 6. Encephalopathy. 7. Positive COVID-19. 8. Seizure disorder. DISCUSSION: Continue antibiotics per ID. Currently saturating well on low- flow oxygen and room air. I will follow carefully. Jaleel Du Omar Syed MD October 09, 2019 09:57
[2019-10-09 12:00] VITALS: BP 115/72
[2019-10-09 12:42] LABS: BASOPHILS % (AUTO) 0.9 % (0.0-2.0); EOSINOPHILS % (AUTO) 4.2 % (0.0-3.0); HEMATOCRIT 29.3 % (37.0-47.0); HEMOGLOBIN 9.5 G/DL (12.0-16.0); LYMPHOCYTES % (AUTO) 17.3 % (20.0-45.0); MEAN CORPUSCULAR VOLUME 75 FL (80-99); MONOCYTES % (AUTO) 9.4 % (1.0-10.0); NEUTROPHILS % (AUTO) 68.2 % (45.0-75.0); PLATELET COUNT 387 K/UL (150-450); RED BLOOD COUNT 3.92 M/UL (4.20-5.40); RED CELL DISTRIBUTION WIDTH 12.2 % (11.6-14.8); WHITE BLOOD COUNT 14.7 K/UL (4.8-10.8)
--- NOTE | 2019-10-09 12:53 | General Progress Note ---
Assessment/Plan Problem List: (1) Anemia ICD Codes: D64.9 - Anemia, unspecified SNOMED: 507614750 Qualifiers: Qualified Codes: D64.9 - Anemia, unspecified (2) Diabetes ICD Codes: E11.9 - Type 2 diabetes mellitus without complications SNOMED: 73808756 (3) Malnutrition ICD Codes: E46 - Unspecified protein-calorie malnutrition SNOMED: 82725058 (4) Weak ICD Codes: R53.1 - Weakness SNOMED: 63493548 (5) Sepsis ICD Codes: A41.9 - Sepsis, unspecified organism SNOMED: 02704705 (6) UTI (urinary tract infection) ICD Codes: N39.0 - Urinary tract infection, site not specified SNOMED: 40312166 Qualifiers: Qualified Codes: N30.00 - Acute cystitis without hematuria (7) HTN (hypertension) ICD Codes: I10 - Essential (primary) hypertension SNOMED: 34499892 (8) ARF (acute renal failure) ICD Codes: N17.9 - Acute kidney failure, unspecified SNOMED: 09871124 Qualifiers: Qualified Codes: N17.9 - Acute kidney failure, unspecified (9) Hypothyroid ICD Codes: E03.9 - Hypothyroidism, unspecified SNOMED: 89984515 (10) FTT (failure to thrive) in adult ICD Codes: R62.7 - Adult failure to thrive SNOMED: 078194917 (11) COVID-19 virus infection ICD Codes: U07.1 - COVID-19 SNOMED: 981928133 Status: unchanged Assessment/Plan: pt diet abx cbc bmp am Subjective Constitutional: Reports: weakness Allergies: Coded Allergies: No Known Allergies (Unverified , 10/02/19) All Systems: reviewed and negative except above Subjective sleepy calm Objective Last 24 Hour Vital Signs Date Time Temp Pulse Resp B/P (MAP) Pulse Ox O2 Delivery O2 Flow Rate FiO2 10/09/19 09:00 Room Air 10/09/19 09:00 98 108/69 10/09/19 08:00 97.6 98 22 108/69 (82) 97 10/09/19 00:00 98.2 100 24 102/77 (85) 96 10/08/19 21:03 Room Air 10/08/19 20:24 97.0 86 18 136/70 (92) 98 10/08/19 20:20 87 136/77 10/08/19 15:54 98.4 99 20 100/56 (71) 98 Intake and Output 10/08/19 10/09/19 19:00 07:00 Intake Total 800 ml Output Total 600 ml 600 ml Balance 200 ml -600 ml Intake Oral 800 ml Output Urine Total 600 ml 600 ml # Bowel Movements 2 Laboratory Tests 10/09/19 12:10: White Blood Count 14.7H, Red Blood Count 3.92L, Hemoglobin 9.5L, Hematocrit 29.3L, Mean Corpuscular Volume 75L, Mean Corpuscular Hemoglobin 24.2L, Mean Corpuscular Hemoglobin Concent 32.4, Red Cell Distribution Width 12.2, Platelet Count 387, Mean Platelet Volume 5.1L, Neutrophils (%) (Auto) 68.2, Lymphocytes ( %) (Auto) 17.3L, Monocytes (%) (Auto) 9.4, Eosinophils (%) (Auto) 4.2H, Basophils (%) (Auto) 0.9, Sodium Level [Pending], Potassium Level [Pending], Chloride Level [Pending], Carbon Dioxide Level [Pending], Blood Urea Nitrogen [ Pending], Creatinine [Pending], Estimat Glomerular Filtration Rate [Pending], Glucose Level [Pending], Calcium Level [Pending] Height (Feet): 5 Height (Inches): 5.00 Weight (Pounds): 164 General Appearance: lethargic EENT: normal ENT inspection Neck: normal alignment Cardiovascular: normal rate, regular rhythm Respiratory/Chest: no respiratory distress, no accessory muscle use Extremities: normal inspection Skin: normal pigmentation Dustin Leija DO October 09, 2019 12:53
--- NOTE | 2019-10-09 12:56 | NUR ---
RD ASSESSMENT & RECOMMENDATIONS SEE CARE ACTIVITY FOR COMPLETE ASSESSMENT DAILY ESTIMATED NEEDS: Needs based on Renal (without HD), 61.2kg abw 25-30 kcals/kg 2196-2063 total kcals .8-1.0 g protein/kg 49-61 g total protein Fluid per MD NUTRITION DIAGNOSIS: Altered nutrition related lab values r/t renal dysfunction as evidenced by renal failure most likely acute superimposed on chronic per MD, elevated BUN (83-> 48), elev Creat (7.5-> 5.4) w/ elevated phos, w/ an order for tunneled cath placement, pt to start HD. CURRENT DIET:RENAL PO DIET RECOMMENDATIONS: Liberalized REGULAR w/ continued poor PO / texture as tolerated ENTERAL NUTRITION RECOMMENDATIONS: CONSIDER NONORAL FEEDS W/ CONTINUED POOR/VARIABLE PO ADDITIONAL RECOMMENDATIONS: 1) Add Nepro TID w/ poor PO 2) [employer] for appropriate texture 3) Maintain calibrated bed scale wts-> adm w/ FTT 4) Rec bed side BG testing, A1C 6.4 (pre-dm) w/ poor po intake -> at risk for hypoglycemia 5) Monitor for HD initiation- w/ an order for tunneled cath placement 6) Consider appetite stimulant- poor and variable PO, many refusing meals
[2019-10-09 12:59] LABS: ANION GAP 10 mmol/L (5-15); BLOOD UREA NITROGEN 48 mg/dL (7-18); CALCIUM 7.8 MG/DL (8.5-10.1); CARBON DIOXIDE 24 MMOL/L (21-32); CHLORIDE 110 MMOL/L (98-107); POTASSIUM 3.8 MMOL/L (3.5-5.1); SODIUM 144 MMOL/L (136-145)
--- NOTE | 2019-10-09 13:39 | NUR ---
CASE MANAGEMENT:REVIEW SI;COVID-19 VIRAL INFECTION SEPSIS. UTI. FTT. ACUTE RENAL FAILURE. HYPOALBUMINEMIA. 98.2 100 24 102/77 96% ON RA WBC 14.7 BUN 48 CR 5.0 CA 7.8 IS;K-DUR PO BID LOPRESSOR PO Q12 HR MEROPENEM IV Q24 HR DILANTIN PO QHS FOLATE PO QD SYNTHROID PO QD KEPPRA PO Q12 HR MED SURG STATUS DCP; FROM [facility] PLAN OF CARE; TUNNEL CATH PLACEMENT PICC PLACEMENT START HEMODIALYSIS
--- NOTE | 2019-10-09 13:45 | Infectious Diseases Prog Note ---
Assessment/Plan Assessment/Plan Assessment: COVID positive (tested positive on 09/20)-still positive -10/01 CXR: There is some crowding of bronchovascular markings at the left lung base. Left costophrenic sulcus is obscured, small pleural effusion likely. SARS-COV2 PCR + UTI -u/a wbc tnct, nit +, leuk +2; ucx >100k M, morganii, probable Amp-C (R amp, Ancef, macrobid; S Ceftriaxone), >100k E.coli (I Amp; otherwise S), >100k mixed gram positive -Bcx NTD Afebrile Leukocytosis; fluctuating BOB on CKD (cr 10.4)- last Cr available was 1.4 on 2005- improving -Renal US: LIMITED STUDY DUE TO PATIENT'S BODY HABITUS. LEFT KIDNEY NOT VISUALIZED.CORTICAL THINNING AND INCREASED CORTICAL ECHOGENICITY OF THE RIGHT KIDNEY REFLECTING MEDICAL RENAL DISEASE. SMALL RENAL CYST NOTED BUT NO SIGN OF OBSTRUCTIVE UROPATHY. CHF HLD hypothyroidism GERD seizure disorder [place] resident Plan: -Continue Meropenem #6(abx d #12/30) for UTI -10/01 SP Azithromycin x1 -f/u cx -Monitor CBC/CMP, temperatures -COVID19 isolation; still positive on repeat test on 10/01 -Nephro f/u -aspiration precautions -Cdiff if diarrhea -u/a w/ reflex, Bxx2 -CXR am Thank you for consulting [facility]. Will continue to follow along with you. Discussed with RN, Subjective Allergies: Coded Allergies: No Known Allergies (Unverified , 10/02/19) Subjective at RA afebrile leukocytosis fluctuating; remains at 14 Objective Vital Signs Last 24 Hour Vital Signs Date Time Temp Pulse Resp B/P (MAP) Pulse Ox O2 Delivery O2 Flow Rate FiO2 10/09/19 09:00 Room Air 10/09/19 09:00 98 108/69 10/09/19 08:00 97.6 98 22 108/69 (82) 97 10/09/19 00:00 98.2 100 24 102/77 (85) 96 10/08/19 21:03 Room Air 10/08/19 20:24 97.0 86 18 136/70 (92) 98 10/08/19 20:20 87 136/77 10/08/19 15:54 98.4 99 20 100/56 (71) 98 Height (Feet): 5 Height (Inches): 5.00 Weight (Pounds): 164 Objective not examined to limit COVID19 exposure Laboratory Tests Test 10/09/19 12:10 White Blood Count 14.7 K/UL (4.8-10.8) H Red Blood Count 3.92 M/UL (4.20-5.40) L Hemoglobin 9.5 G/DL (12.0-16.0) L Hematocrit 29.3 % (37.0-47.0) L Mean Corpuscular Volume 75 FL (80-99) L Mean Corpuscular Hemoglobin 24.2 PG (27.0-31.0) L Mean Corpuscular Hemoglobin Concent 32.4 G/DL (32.0-36.0) Red Cell Distribution Width 12.2 % (11.6-14.8) Platelet Count 387 K/UL (150-450) Mean Platelet Volume 5.1 FL (6.5-10.1) L Neutrophils (%) (Auto) 68.2 % (45.0-75.0) Lymphocytes (%) (Auto) 17.3 % (20.0-45.0) L Monocytes (%) (Auto) 9.4 % (1.0-10.0) Eosinophils (%) (Auto) 4.2 % (0.0-3.0) H Basophils (%) (Auto) 0.9 % (0.0-2.0) Sodium Level 144 MMOL/L (136-145) Potassium Level 3.8 MMOL/L (3.5-5.1) Chloride Level 110 MMOL/L (98-107) H Carbon Dioxide Level 24 MMOL/L (21-32) Anion Gap 10 mmol/L (5-15) Blood Urea Nitrogen 48 mg/dL (7-18) H Creatinine 5.0 MG/DL (0.55-1.30) H Estimat Glomerular Filtration Rate 10.8 mL/min (>60) Glucose Level 102 MG/DL (74-106) Calcium Level 7.8 MG/DL (8.5-10.1) L Current Medications Medications (Trade) Dose Ordered Sig/Avila Route PRN Reason Start Time Stop Time Status Last Admin Dose Admin Acetaminophen (Tylenol) 650 mg Q4HR PRN ORAL TEMP>100.5 10/02/19 03:15 Chlorhexidine Gluconate (Marlyn-Hex 2%) 1 applic DAILY@2000 TOPIC 10/04/19 20:00 01/02/20 19:59 10/08/19 20:19 Docusate Sodium (Colace) 100 mg TID ORAL 10/03/19 13:00 11/01/19 08:59 10/09/19 13:31 Folic Acid (Folate) 2 mg DAILY ORAL 10/03/19 10:00 11/02/19 09:59 10/09/19 09:52 Haloperidol Lactate (Haldol) 5 mg Q6H PRN IM Agitation 10/03/19 09:33 11/17/19 09:32 10/09/19 00:44 Heparin Sodium/ Sodium Chloride (Heparin 1000 units/500ml Premix) 1,000 unit ONCE PRN IV radiology procedure 10/08/19 17:00 10/10/19 16:59 Heparin Sodium/ Sodium Chloride (Heparin 1000 units/500ml Premix) 1,000 unit ONCE PRN IV PICC LINE PLACEMENT 10/09/19 05:30 10/11/19 05:29 Levetiracetam (Keppra) 500 mg Q12HR ORAL 10/02/19 09:00 11/01/19 08:59 10/09/19 09:52 Levothyroxine Sodium (Synthroid) 25 mcg DAILY@0630 ORAL 10/03/19 06:30 11/02/19 06:29 10/08/19 05:45 Lidocaine HCl (Xylocaine 1% 30ml) 30 ml ONCE PRN INJ radiology procedure 10/08/19 17:00 10/10/19 16:59 Lidocaine HCl (Xylocaine 1% 30ml) 30 ml ONCE PRN INJ PICC LINE PLACEMENT 10/09/19 05:30 01/07/20 05:29 Meropenem 500 mg/ Sodium Chloride 55 ml @ 110 mls/hr Q24H IVPB 10/04/19 14:00 10/10/19 23:59 10/08/19 14:07 Metoprolol Tartrate (Lopressor) 12.5 mg Q12HR ORAL 10/07/19 21:00 01/05/20 20:59 10/08/19 20:20 Phenytoin (Dilantin) 300 mg QHS ORAL 10/03/19 21:00 6/11/20 08:59 10/08/19 20:20 Quetiapine Fumarate (SEROqueL) 25 mg Q12HR ORAL 10/03/19 09:45 11/17/19 09:44 10/09/19 09:52 Sevelamer Carbonate (Renvela) 1,600 mg THREE TIMES A DAY ORAL 10/03/19 13:00 01/01/20 12:59 10/09/19 13:31 Marie Ross M.D. October 09, 2019 13:44
--- NOTE | 2019-10-09 13:51 | NUR ---
NURSE NOTES: RN spoke to Noel from radiology and reminded him for dialysis catheter insertion for tomorrow.
--- NOTE | 2019-10-09 14:39 | Nephrology Progress Note ---
Assessment/Plan Problem List: (1) ARF (acute renal failure) Assessment: Serum creatinine slightly lower (2) COVID-19 virus infection (3) Renal failure (ARF), acute on chronic (4) Hypoalbuminemia Assessment: Nephrotic range proteinuria (5) Anemia Assessment: Low MCV (6) Diabetes Assessment: Hemoglobin A1c is 6.4 (7) Seizure disorder Assessment Renal failure most likely acute superimposed on chronic 4+ proteinuria with severe hypoalbuminemia should rule out nephrotic syndrome COVID-19 virus infection UTI Anemia with low MCV, likely part due to iron deficiency Toxic metabolic encephalopathy History of seizures Plan October 08: Serum creatinine down to 5 however calculated creatinine clearance remains 10 cc per minute Dialysis catheter could not be put in yesterday since the patient refused to wear a mask At this time we will continue current treatment plan I discussed with RN . We will get the assistance of patient's daughter in order to proceed with dialysis catheter Meanwhile the patient is stable from renal standpoint of view at this time We will keep monitoring renal parameters October 07: Serum creatinine 5.4 unchanged Creatinine clearance below 10 Will proceed with hemodialysis and dialysis catheter placement October 06: Serum creatinine is down to 5.4 yet creatinine clearance still below 10 We will continue to monitor renal parameters Will decide for initiation of hemodialysis in the next 24 to 48 hours Previously: Discussed with Araseli Lawton is the daughter of the patient who agrees with initiation of hemodialysis Labs still pending for today October 05 Kidney ultrasound suggestive of chronic kidney disease also only the right kidney was visualized Patient has low creatinine clearance and requires dialysis treatment Will discuss with case management and or responsible republican regarding initiation of dialysis Meanwhile continue per current management and consultants Discussed with caser in who will contact the daughter for the consent Meanwhile will discontinue hydration and continue to monitor renal parameters Saini catheter, 24-hour urine collection for protein-ordered results indicative of nephrotic range proteinuria Kidney ultrasound results checked patient has 1 kidney Avoid nephrotoxic's Urine studies Monitor renal parameters Antibiotics Continue per consultants Subjective ROS Limited/Unobtainable: No Constitutional: Reports: weakness Objective Objective Last 24 Hour Vital Signs Date Time Temp Pulse Resp B/P (MAP) Pulse Ox O2 Delivery O2 Flow Rate FiO2 10/09/19 09:00 Room Air 10/09/19 09:00 98 108/69 10/09/19 08:00 97.6 98 22 108/69 (82) 97 10/09/19 00:00 98.2 100 24 102/77 (85) 96 10/08/19 21:03 Room Air 10/08/19 20:24 97.0 86 18 136/70 (92) 98 10/08/19 20:20 87 136/77 10/08/19 15:54 98.4 99 20 100/56 (71) 98 Intake and Output 10/08/19 10/09/19 19:00 07:00 Intake Total 800 ml Output Total 600 ml 600 ml Balance 200 ml -600 ml Intake Oral 800 ml Output Urine Total 600 ml 600 ml # Bowel Movements 2 Laboratory Tests 10/09/19 12:10: White Blood Count 14.7H, Red Blood Count 3.92L, Hemoglobin 9.5L, Hematocrit 29.3L, Mean Corpuscular Volume 75L, Mean Corpuscular Hemoglobin 24.2L, Mean Corpuscular Hemoglobin Concent 32.4, Red Cell Distribution Width 12.2, Platelet Count 387, Mean Platelet Volume 5.1L, Neutrophils (%) (Auto) 68.2, Lymphocytes ( %) (Auto) 17.3L, Monocytes (%) (Auto) 9.4, Eosinophils (%) (Auto) 4.2H, Basophils (%) (Auto) 0.9, Sodium Level 144, Potassium Level 3.8, Chloride Level 110H, Carbon Dioxide Level 24, Anion Gap 10, Blood Urea Nitrogen 48H, Creatinine 5.0H, Estimat Glomerular Filtration Rate 10.8, Glucose Level 102, Calcium Level 7.8L Height (Feet): 5 Height (Inches): 5.00 Weight (Pounds): 164 General Appearance: no apparent distress Cardiovascular: tachycardia Objective No change Yinka Boston MD October 09, 2019 14:39
[2019-10-09] MEDS: Meropenem 500 MG in NS 55 ML IVPB SCH (15:13)
--- NOTE | 2019-10-09 15:30 | NUR ---
NURSE NOTES: railway equipment operator inserted a new IV on left hand with G24. Secured with tape. Patient tried to grab IV tubing to pull out. educated patient on importance of following plan of care. Will continue to monitor.
--- NOTE | 2019-10-09 15:36 | NUR ---
NURSE NOTES: Collected urine specimen for UA and sent it to lab.
[2019-10-09 15:53] LABS: APPEARANCE,URINE CLEAR; BILIRUBIN, URINE NEGATIVE (NEGATIVE); COLOR,URINE PALE YELLOW; GLUCOSE, URINE (UA) 3+ (NEGATIVE); KETONES,URINE NEGATIVE (NEGATIVE); LEUKOCYTE ESTERASE ,URINE NEGATIVE (NEGATIVE); NITRITE,URINE NEGATIVE (NEGATIVE); PH,URINE 8 (4.5-8.0); PROTEIN,URINE 4+ (NEGATIVE); UROBILINOGEN,URINE NORMAL MG/DL (0.0-1.0)
[2019-10-09 16:00] VITALS: BP 105/71
--- NOTE | 2019-10-09 16:30 | NUR ---
NURSE NOTES: global account director joseluis the blood for blood culture.Patient has no more PICC line. Dr. Ross is aware to d/c blood culture from the picc line.
--- NOTE | 2019-10-09 18:12 | NUR ---
NURSE NOTES: Received restraint order from Dr. Kingsley due to patient had episode of pulling out an PICC line in previous shift and tried to pull out peripheral IV several times even though with reorientation and diversional activities. Education given about the type of restraint to the patient and reenforcement needed. RN spoke to patient's daughter and she agreed with restraint. No skin break, swelling on right wrist, pulse presents. Will continue to monitor. Applied restraint on right wrist properly. Will continue to monitor.
--- NOTE | 2019-10-09 19:20 | NUR ---
HAND-OFF: Report given to YE Solano. POC endorsed.
--- NOTE | 2019-10-09 19:30 | NUR ---
NURSE NOTES: Received patient on bed, awake, confused. with iv line on the left hand 24 gauge, tko. per patrica and brennan, she took out the picc line today and there is a scheduled picc line insertion tomorrow. the morning nurse initiated the soft wrist restraints on the right wrist. no injury noted. on 24 cr clearance that was started at 1600 today. denies any pain or discomfort. call light and light button within easy reach. bed locked and in lowest position. will continue plan of care.
[2019-10-09 20:00] VITALS: BP 103/66
[2019-10-09] MEDS ORDERED: Dyna-Hex 2% Top Sol 2oz TOPIC SCH (20:00)
[2019-10-09] MEDS: Dyna-Hex 2% Top Sol 2oz TOPIC SCH (20:00)
[2019-10-09] MEDS: Phenytoin 100mg cap ORAL SCH (20:43)
[2019-10-10] VITALS: BP 132/89
[2019-10-10 04:00] VITALS: BP 116/74
[2019-10-10] MEDS: Levothyroxine 25mcg tab ORAL SCH (06:30)
[2019-10-10 07:15] LABS: BASOPHILS % (AUTO) 0.8 % (0.0-2.0); EOSINOPHILS % (AUTO) 4.4 % (0.0-3.0); HEMATOCRIT 32.4 % (37.0-47.0); HEMOGLOBIN 10.6 G/DL (12.0-16.0); LYMPHOCYTES % (AUTO) 18.5 % (20.0-45.0); MEAN CORPUSCULAR VOLUME 75 FL (80-99); MONOCYTES % (AUTO) 7.4 % (1.0-10.0); NEUTROPHILS % (AUTO) 68.9 % (45.0-75.0); PLATELET COUNT 423 K/UL (150-450); RED CELL DISTRIBUTION WIDTH 12.4 % (11.6-14.8); WHITE BLOOD COUNT 14.9 K/UL (4.8-10.8)
[2019-10-10 07:33] LABS: ALANINE AMINOTRANSFERASE 13 U/L (12-78); ALBUMIN 0.7 G/DL (3.4-5.0); ALBUMIN/GLOBULIN RATIO 0.1 (1.0-2.7); ALKALINE PHOSPHATASE 187 U/L (46-116); ANION GAP 9 mmol/L (5-15); ASPARTATE AMINO TRANSFERASE 26 U/L (15-37); BILIRUBIN,TOTAL < 0.1 MG/DL (0.2-1.0); BLOOD UREA NITROGEN 50 mg/dL (7-18); CALCIUM 7.9 MG/DL (8.5-10.1); CARBON DIOXIDE 26 MMOL/L (21-32); CHLORIDE 109 MMOL/L (98-107); CREATININE 4.5 MG/DL (0.55-1.30); PHOSPHORUS 4.1 MG/DL (2.5-4.9); POTASSIUM 3.8 MMOL/L (3.5-5.1); SODIUM 144 MMOL/L (136-145)
--- NOTE | 2019-10-10 07:35 | NUR ---
NURSE NOTES: Received patient lying in semi-diaz's position in hospital bed with padded bilateral side rails for seizure precautions and restraint on R wrist for safety and pulling medical devices. Pt is asleep. Patient is on RA satting at 98%with no s/s of distress nor any c/o pain. Patient is able to make some needs known, able to self-reposition and requires some assistance in feeding. Patient has 24g peripheral IV on L wrist TKO with no s/s of infection or infiltration. SCDs present on BLE for DVT ppx. Patient has a land in place with clear yellowish urine noted in bag. 24 hour urine collection ongoing until end time of 1600 today. Bed on lowest position. Call light within reach. Will continue POC.
--- NOTE | 2019-10-10 07:36 | NUR ---
HAND-OFF: Report given to asa amin.
--- NOTE | 2019-10-10 08:10 | General Progress Note ---
Assessment/Plan Problem List: (1) Anemia ICD Codes: D64.9 - Anemia, unspecified SNOMED: 586134235 Qualifiers: Qualified Codes: D64.9 - Anemia, unspecified (2) Diabetes ICD Codes: E11.9 - Type 2 diabetes mellitus without complications SNOMED: 76438521 (3) Malnutrition ICD Codes: E46 - Unspecified protein-calorie malnutrition SNOMED: 15820042 (4) Weak ICD Codes: R53.1 - Weakness SNOMED: 01121165 (5) Sepsis ICD Codes: A41.9 - Sepsis, unspecified organism SNOMED: 52170250 (6) UTI (urinary tract infection) ICD Codes: N39.0 - Urinary tract infection, site not specified SNOMED: 84533116 Qualifiers: Qualified Codes: N30.00 - Acute cystitis without hematuria (7) HTN (hypertension) ICD Codes: I10 - Essential (primary) hypertension SNOMED: 90483366 (8) ARF (acute renal failure) ICD Codes: N17.9 - Acute kidney failure, unspecified SNOMED: 55653010 Qualifiers: Qualified Codes: N17.9 - Acute kidney failure, unspecified (9) Hypothyroid ICD Codes: E03.9 - Hypothyroidism, unspecified SNOMED: 90101634 (10) FTT (failure to thrive) in adult ICD Codes: R62.7 - Adult failure to thrive SNOMED: 403788722 (11) COVID-19 virus infection ICD Codes: U07.1 - COVID-19 SNOMED: 426546736 Status: unchanged Assessment/Plan: pt diet abx cbc bmp am Subjective Constitutional: Reports: weakness Allergies: Coded Allergies: No Known Allergies (Unverified , 10/02/19) All Systems: reviewed and negative except above Subjective sleepy calm Objective Last 24 Hour Vital Signs Date Time Temp Pulse Resp B/P (MAP) Pulse Ox O2 Delivery O2 Flow Rate FiO2 10/10/19 04:00 97.8 89 22 116/74 (88) 99 10/10/19 00:00 97.8 78 22 132/89 (103) 99 10/09/19 21:00 Room Air 10/09/19 20:43 79 103/66 10/09/19 20:00 97.3 79 24 103/66 (78) 99 10/09/19 16:00 98.3 73 19 105/71 (82) 97 10/09/19 12:00 98.0 96 21 115/72 (86) 98 10/09/19 09:00 Room Air 10/09/19 09:00 98 108/69 Intake and Output 10/09/19 10/10/19 19:00 07:00 Intake Total 55 ml 600 ml Output Total 700 ml 500 ml Balance -645 ml 100 ml Intake Oral 600 ml IV Total 55 ml Output Urine Total 700 ml 500 ml Laboratory Tests 10/09/19 12:10: White Blood Count 14.7H, Red Blood Count 3.92L, Hemoglobin 9.5L, Hematocrit 29.3L, Mean Corpuscular Volume 75L, Mean Corpuscular Hemoglobin 24.2L, Mean Corpuscular Hemoglobin Concent 32.4, Red Cell Distribution Width 12.2, Platelet Count 387, Mean Platelet Volume 5.1L, Neutrophils (%) (Auto) 68.2, Lymphocytes ( %) (Auto) 17.3L, Monocytes (%) (Auto) 9.4, Eosinophils (%) (Auto) 4.2H, Basophils (%) (Auto) 0.9, Sodium Level 144, Potassium Level 3.8, Chloride Level 110H, Carbon Dioxide Level 24, Anion Gap 10, Blood Urea Nitrogen 48H, Creatinine 5.0H, Estimat Glomerular Filtration Rate 10.8, Glucose Level 102, Calcium Level 7.8L 10/09/19 15:25: Urine Color Pale yellow, Urine Appearance Clear, Urine pH 8, Urine Specific [place] 1.010, Urine Protein 4+H, Urine Glucose (UA) 3+H, Urine Ketones Negative , Urine Blood 3+H, Urine Nitrite Negative, Urine Bilirubin Negative, Urine Urobilinogen Normal, Urine Leukocyte Esterase Negative, Urine RBC 5-10H, Urine WBC 5-10H, Urine Squamous Epithelial Cells Few, Urine Bacteria Few 10/10/19 06:43: White Blood Count 14.9H, Red Blood Count 4.30, Hemoglobin 10.6L, Hematocrit 32.4L, Mean Corpuscular Volume 75L, Mean Corpuscular Hemoglobin 24.6L, Mean Corpuscular Hemoglobin Concent 32.6, Red Cell Distribution Width 12.4, Platelet Count 423, Mean Platelet Volume 5.1L, Neutrophils (%) (Auto) 68.9, Lymphocytes ( %) (Auto) 18.5L, Monocytes (%) (Auto) 7.4, Eosinophils (%) (Auto) 4.4H, Basophils (%) (Auto) 0.8, Sodium Level 144, Potassium Level 3.8, Chloride Level 109H, Carbon Dioxide Level 26, Anion Gap 9, Blood Urea Nitrogen 50H, Creatinine 4.5H, Estimat Glomerular Filtration Rate 12.1, Glucose Level 91, Calcium Level 7.9L, Uric Acid 4.5, Phosphorus Level 4.1, Magnesium Level 2.8H, Total Bilirubin < 0.1L, Aspartate Amino Transf (AST/SGOT) 26, Alanine Aminotransferase (ALT/SGPT) 13, Alkaline Phosphatase 187H, C-Reactive Protein, Quantitative 8.7H, Pro-B-Type Natriuretic Peptide 737H, Total Protein 5.4L, Albumin 0.7L, Globulin 4.7, Albumin/Globulin Ratio 0.1L Height (Feet): 5 Height (Inches): 5.00 Weight (Pounds): 165 General Appearance: lethargic EENT: normal ENT inspection Neck: normal alignment Cardiovascular: normal rate, regular rhythm Respiratory/Chest: no respiratory distress, no accessory muscle use Extremities: normal inspection Skin: normal pigmentation Dustin Leija DeonteJolie LOZADA October 10, 2019 08:10
--- NOTE | 2019-10-10 08:35 | NUR ---
NURSE NOTES: RN received phone call from Dr. Boston with order to cancel tunneled dialysis cath insertion since her creatinine is going down. RN informed Ed from radiology. He is aware and RN reminded him of an PICC line insertion.
[2019-10-10] MEDS: Docusate 100mg cap ORAL SCH ×3 (09:31→18:23)
[2019-10-10] MEDS: Metoprolol Tartrate 12.5mg TAB ORAL SCH (09:32)
--- NOTE | 2019-10-10 10:48 | NUR ---
RADIOLOGY: PCXR COMPLETED 1040HRS. PATIENT REFUSED STUDY ON FIRST ATTEMPT. NF
--- NOTE | 2019-10-10 11:10 | Pulmonology Progress Note ---
Subjective ROS Limited/Unobtainable: No Interval Events: none new Constitutional: Reports: no symptoms HEENT: Repors: no symptoms Respiratory: Reports: no symptoms Cardiovascular: Reports: no symptoms Allergies: Coded Allergies: No Known Allergies (Unverified , 10/02/19) All Systems: reviewed and negative except above Objective Last 24 Hour Vital Signs Date Time Temp Pulse Resp B/P (MAP) Pulse Ox O2 Delivery O2 Flow Rate FiO2 10/10/19 09:32 85 159/75 10/10/19 04:00 97.8 89 22 116/74 (88) 99 10/10/19 00:00 97.8 78 22 132/89 (103) 99 10/09/19 21:00 Room Air 10/09/19 20:43 79 103/66 10/09/19 20:00 97.3 79 24 103/66 (78) 99 10/09/19 16:00 98.3 73 19 105/71 (82) 97 10/09/19 12:00 98.0 96 21 115/72 (86) 98 Intake and Output 10/09/19 10/10/19 19:00 07:00 Intake Total 55 ml 600 ml Output Total 700 ml 500 ml Balance -645 ml 100 ml Intake Oral 600 ml IV Total 55 ml Output Urine Total 700 ml 500 ml General Appearance: no acute distress HEENT: normocephalic Respiratory: chest wall non-tender, lungs clear Cardiovascular: normal peripheral pulses Abdomen: normal bowel sounds Laboratory Tests 10/09/19 12:10: White Blood Count 14.7H, Red Blood Count 3.92L, Hemoglobin 9.5L, Hematocrit 29.3L, Mean Corpuscular Volume 75L, Mean Corpuscular Hemoglobin 24.2L, Mean Corpuscular Hemoglobin Concent 32.4, Red Cell Distribution Width 12.2, Platelet Count 387, Mean Platelet Volume 5.1L, Neutrophils (%) (Auto) 68.2, Lymphocytes ( %) (Auto) 17.3L, Monocytes (%) (Auto) 9.4, Eosinophils (%) (Auto) 4.2H, Basophils (%) (Auto) 0.9, Sodium Level 144, Potassium Level 3.8, Chloride Level 110H, Carbon Dioxide Level 24, Anion Gap 10, Blood Urea Nitrogen 48H, Creatinine 5.0H, Estimat Glomerular Filtration Rate 10.8, Glucose Level 102, Calcium Level 7.8L 10/09/19 15:25: Urine Color Pale yellow, Urine Appearance Clear, Urine pH 8, Urine Specific [place] 1.010, Urine Protein 4+H, Urine Glucose (UA) 3+H, Urine Ketones Negative , Urine Blood 3+H, Urine Nitrite Negative, Urine Bilirubin Negative, Urine Urobilinogen Normal, Urine Leukocyte Esterase Negative, Urine RBC 5-10H, Urine WBC 5-10H, Urine Squamous Epithelial Cells Few, Urine Bacteria Few 10/10/19 06:43: White Blood Count 14.9H, Red Blood Count 4.30, Hemoglobin 10.6L, Hematocrit 32.4L, Mean Corpuscular Volume 75L, Mean Corpuscular Hemoglobin 24.6L, Mean Corpuscular Hemoglobin Concent 32.6, Red Cell Distribution Width 12.4, Platelet Count 423, Mean Platelet Volume 5.1L, Neutrophils (%) (Auto) 68.9, Lymphocytes ( %) (Auto) 18.5L, Monocytes (%) (Auto) 7.4, Eosinophils (%) (Auto) 4.4H, Basophils (%) (Auto) 0.8, Sodium Level 144, Potassium Level 3.8, Chloride Level 109H, Carbon Dioxide Level 26, Anion Gap 9, Blood Urea Nitrogen 50H, Creatinine 4.5H, Estimat Glomerular Filtration Rate 12.1, Glucose Level 91, Calcium Level 7.9L, Uric Acid 4.5, Phosphorus Level 4.1, Magnesium Level 2.8H, Total Bilirubin < 0.1L, Aspartate Amino Transf (AST/SGOT) 26, Alanine Aminotransferase (ALT/SGPT) 13, Alkaline Phosphatase 187H, C-Reactive Protein, Quantitative 8.7H, Pro-B-Type Natriuretic Peptide 737H, Total Protein 5.4L, Albumin 0.7L, Globulin 4.7, Albumin/Globulin Ratio 0.1L Current Medications Medications (Trade) Dose Ordered Sig/[place] Route PRN Reason Start Time Stop Time Status Last Admin Dose Admin Acetaminophen (Tylenol) 650 mg Q4HR PRN ORAL TEMP>100.5 10/02/19 03:15 Chlorhexidine Gluconate (Marlyn-Hex 2%) 1 applic DAILY@2000 TOPIC 10/04/19 20:00 01/02/20 19:59 10/08/19 20:19 Docusate Sodium (Colace) 100 mg TID ORAL 10/03/19 13:00 11/01/19 08:59 10/10/19 09:31 Folic Acid (Folate) 2 mg DAILY ORAL 10/03/19 10:00 11/02/19 09:59 10/10/19 09:31 Haloperidol Lactate (Haldol) 5 mg Q6H PRN IM Agitation 10/03/19 09:33 11/17/19 09:32 10/09/19 00:44 Heparin Sodium/ Sodium Chloride (Heparin 1000 units/500ml Premix) 1,000 unit ONCE PRN IV radiology procedure 10/08/19 17:00 10/10/19 16:59 Heparin Sodium/ Sodium Chloride (Heparin 1000 units/500ml Premix) 1,000 unit ONCE PRN IV PICC LINE PLACEMENT 10/09/19 05:30 10/11/19 05:29 Levetiracetam (Keppra) 500 mg Q12HR ORAL 10/02/19 09:00 11/01/19 08:59 10/10/19 09:32 Levothyroxine Sodium (Synthroid) 25 mcg DAILY@0630 ORAL 10/03/19 06:30 11/02/19 06:29 10/08/19 05:45 Lidocaine HCl (Xylocaine 1% 30ml) 30 ml ONCE PRN INJ radiology procedure 10/08/19 17:00 10/10/19 16:59 Lidocaine HCl (Xylocaine 1% 30ml) 30 ml ONCE PRN INJ PICC LINE PLACEMENT 10/09/19 05:30 01/07/20 05:29 Meropenem 500 mg/ Sodium Chloride 55 ml @ 110 mls/hr Q24H IVPB 10/04/19 14:00 10/10/19 23:59 10/09/19 15:13 Metoprolol Tartrate (Lopressor) 12.5 mg Q12HR ORAL 10/07/19 21:00 01/05/20 20:59 10/10/19 09:32 Phenytoin (Dilantin) 300 mg QHS ORAL 10/03/19 21:00 11/01/19 08:59 10/09/19 20:43 Quetiapine Fumarate (SEROqueL) 25 mg Q12HR ORAL 10/03/19 09:45 11/17/19 09:44 10/10/19 09:32 Sevelamer Carbonate (Renvela) 1,600 mg THREE TIMES A DAY ORAL 10/03/19 13:00 01/01/20 12:59 10/10/19 09:32 Assessment/Plan Assessment/Plan IMPRESSION: 1. Acute on chronic renal failure. 2. CHF. 3. Hyperlipidemia. 4. Hypothyroidism. 5. GERD. 6. Encephalopathy. 7. Positive COVID-19. 8. Seizure disorder. DISCUSSION: Continue antibiotics per ID. Currently saturating well on room air. I will follow carefully. Jaleel Du Omar Syed MD October 10, 2019 11:10
--- NOTE | 2019-10-10 11:28 | Diagnostic Imaging Report ---
Procedure: XRAY Chest 1v Reason for study: Reason For Exam: COUGH Comparison films: 10/02/2019. FINDINGS: There is a SUPERVISOR ASSEMBLY shunt in place. Vascularity is normal. Densities in the lateral aspect of left lung base is improved with minimal residual. Cardiac and mediastinal silhouette are within normal limits. No significant effusion seen. The bony thorax appear unremarkable. IMPRESSION: Improved densities lateral left lung base with minimal residual.
--- NOTE | 2019-10-10 11:54 | Nephrology Progress Note ---
Assessment/Plan Problem List: (1) ARF (acute renal failure) Assessment: Serum creatinine slightly lower (2) COVID-19 virus infection (3) Renal failure (ARF), acute on chronic (4) Hypoalbuminemia Assessment: Nephrotic range proteinuria (5) Anemia Assessment: Low MCV (6) Diabetes Assessment: Hemoglobin A1c is 6.4 (7) Seizure disorder Assessment Renal failure most likely acute superimposed on chronic 4+ proteinuria with severe hypoalbuminemia should rule out nephrotic syndrome COVID-19 virus infection UTI Anemia with low MCV, likely part due to iron deficiency Toxic metabolic encephalopathy History of seizures Plan October 09: Blood work continues to indicate improvement with regard to the renal parameters Today for the first time the calculated creatinine clearance by the lab indicates a creatinine clearance of 12cc/min I have decided to hold off dialysis catheter placement today and continue to observe the patient at this time I called the daughter and also discussed with Dr. Leija my views Meanwhile will continue to avoid nephrotoxic's and adjust the blood pressure and blood sugar status Per orders October 08: Serum creatinine down to 5 however calculated creatinine clearance remains 10 cc per minute Dialysis catheter could not be put in yesterday since the patient refused to wear a mask At this time we will continue current treatment plan I discussed with RN . We will get the assistance of patient's daughter in order to proceed with dialysis catheter Meanwhile the patient is stable from renal standpoint of view at this time We will keep monitoring renal parameters October 07: Serum creatinine 5.4 unchanged Creatinine clearance below 10 Will proceed with hemodialysis and dialysis catheter placement October 06: Serum creatinine is down to 5.4 yet creatinine clearance still below 10 We will continue to monitor renal parameters Will decide for initiation of hemodialysis in the next 24 to 48 hours Previously: Discussed with Araseli Lawton is the daughter of the patient who agrees with initiation of hemodialysis Labs still pending for today October 05 Kidney ultrasound suggestive of chronic kidney disease also only the right kidney was visualized Patient has low creatinine clearance and requires dialysis treatment Will discuss with case management and or responsible green party regarding initiation of dialysis Meanwhile continue per current management and consultants Discussed with director case management who will contact the daughter for the consent Meanwhile will discontinue hydration and continue to monitor renal parameters Saini catheter, 24-hour urine collection for protein-ordered results indicative of nephrotic range proteinuria Kidney ultrasound results checked patient has 1 kidney Avoid nephrotoxic's Urine studies Monitor renal parameters Antibiotics Continue per consultants Subjective ROS Limited/Unobtainable: No Constitutional: Reports: malaise Objective Objective Last 24 Hour Vital Signs Date Time Temp Pulse Resp B/P (MAP) Pulse Ox O2 Delivery O2 Flow Rate FiO2 10/10/19 09:32 85 159/75 10/10/19 09:00 Room Air 10/10/19 04:00 97.8 89 22 116/74 (88) 99 10/10/19 00:00 97.8 78 22 132/89 (103) 99 10/09/19 21:00 Room Air 10/09/19 20:43 79 103/66 10/09/19 20:00 97.3 79 24 103/66 (78) 99 10/09/19 16:00 98.3 73 19 105/71 (82) 97 10/09/19 12:00 98.0 96 21 115/72 (86) 98 Intake and Output 10/09/19 10/10/19 19:00 07:00 Intake Total 55 ml 600 ml Output Total 700 ml 500 ml Balance -645 ml 100 ml Intake Oral 600 ml IV Total 55 ml Output Urine Total 700 ml 500 ml Laboratory Tests 10/09/19 12:10: White Blood Count 14.7H, Red Blood Count 3.92L, Hemoglobin 9.5L, Hematocrit 29.3L, Mean Corpuscular Volume 75L, Mean Corpuscular Hemoglobin 24.2L, Mean Corpuscular Hemoglobin Concent 32.4, Red Cell Distribution Width 12.2, Platelet Count 387, Mean Platelet Volume 5.1L, Neutrophils (%) (Auto) 68.2, Lymphocytes ( %) (Auto) 17.3L, Monocytes (%) (Auto) 9.4, Eosinophils (%) (Auto) 4.2H, Basophils (%) (Auto) 0.9, Sodium Level 144, Potassium Level 3.8, Chloride Level 110H, Carbon Dioxide Level 24, Anion Gap 10, Blood Urea Nitrogen 48H, Creatinine 5.0H, Estimat Glomerular Filtration Rate 10.8, Glucose Level 102, Calcium Level 7.8L 10/09/19 15:25: Urine Color Pale yellow, Urine Appearance Clear, Urine pH 8, Urine Specific [place] 1.010, Urine Protein 4+H, Urine Glucose (UA) 3+H, Urine Ketones Negative , Urine Blood 3+H, Urine Nitrite Negative, Urine Bilirubin Negative, Urine Urobilinogen Normal, Urine Leukocyte Esterase Negative, Urine RBC 5-10H, Urine WBC 5-10H, Urine Squamous Epithelial Cells Few, Urine Bacteria Few 10/10/19 06:43: White Blood Count 14.9H, Red Blood Count 4.30, Hemoglobin 10.6L, Hematocrit 32.4L, Mean Corpuscular Volume 75L, Mean Corpuscular Hemoglobin 24.6L, Mean Corpuscular Hemoglobin Concent 32.6, Red Cell Distribution Width 12.4, Platelet Count 423, Mean Platelet Volume 5.1L, Neutrophils (%) (Auto) 68.9, Lymphocytes ( %) (Auto) 18.5L, Monocytes (%) (Auto) 7.4, Eosinophils (%) (Auto) 4.4H, Basophils (%) (Auto) 0.8, Sodium Level 144, Potassium Level 3.8, Chloride Level 109H, Carbon Dioxide Level 26, Anion Gap 9, Blood Urea Nitrogen 50H, Creatinine 4.5H, Estimat Glomerular Filtration Rate 12.1, Glucose Level 91, Calcium Level 7.9L, Uric Acid 4.5, Phosphorus Level 4.1, Magnesium Level 2.8H, Total Bilirubin < 0.1L, Aspartate Amino Transf (AST/SGOT) 26, Alanine Aminotransferase (ALT/SGPT) 13, Alkaline Phosphatase 187H, C-Reactive Protein, Quantitative 8.7H, Pro-B-Type Natriuretic Peptide 737H, Total Protein 5.4L, Albumin 0.7L, Globulin 4.7, Albumin/Globulin Ratio 0.1L Height (Feet): 5 Height (Inches): 5.00 Weight (Pounds): 165 General Appearance: no apparent distress Cardiovascular: normal rate Respiratory/Chest: decreased breath sounds Abdomen: soft Objective No change Yinka Boston MD October 10, 2019 11:54
[2019-10-10 12:00] VITALS: BP 124/78
--- NOTE | 2019-10-10 12:12 | NUR ---
CASE MANAGEMENT:REVIEW SI;COVID-19 VIRAL INFECTION SEPSIS. UTI. FTT. ACUTE RENAL FAILURE. HYPOALBUMINEMIA. 97.8 89 22 159/75 99% ON RA WBC 14.9 BUN 50 CR 4.5 CA 7.9 MG 2.8 ALK PHOS 187 ALB 0.7 IS;MEROPENEM IV Q24 HRS KEPPRA PO Q12 HRS DILANTIN PO QHS FOLATE PO QD MED SURG STATUS DCP;FROM [facility]
[2019-10-10] MEDS: Haloperidol 5mg/ml Inj IM PRN (14:27)
--- NOTE | 2019-10-10 15:00 | NUR ---
NURSE NOTES: Double lumen PICC line placed by IR on upper left arm. Dr. Kingsley made aware. Change to restraint order received from Dr. Kingsley for soft restraints to be applied to bilateral wrists to prevent patient from pulling out new picc line placed.
--- NOTE | 2019-10-10 15:23 | Infectious Diseases Prog Note ---
Assessment/Plan Assessment/Plan Assessment: COVID positive (tested positive on 09/20)-still positive -10/09 CXR: Improved densities lateral left lung base with minimal residual. -10/01 CXR: There is some crowding of bronchovascular markings at the left lung base. Left costophrenic sulcus is obscured, small pleural effusion likely. SARS-COV2 PCR + UTI -10/08 u/a wbc 5-10, nit neg, leuk neg -10/01 u/a wbc tnct, nit +, leuk +2; ucx >100k M, morganii, probable Amp-C (R amp, Ancef, macrobid; S Ceftriaxone), >100k E.coli (I Amp; otherwise S), >100k mixed gram positive Bcx Neg Afebrile Leukocytosis; fluctuating- ?reactive -10/08 Bcx p BOB on CKD (cr 10.4)- last Cr available was 1.4 on 2005- improving -Renal US: LIMITED STUDY DUE TO PATIENT'S BODY HABITUS. LEFT KIDNEY NOT VISUALIZED.CORTICAL THINNING AND INCREASED CORTICAL ECHOGENICITY OF THE RIGHT KIDNEY REFLECTING MEDICAL RENAL DISEASE. SMALL RENAL CYST NOTED BUT NO SIGN OF OBSTRUCTIVE UROPATHY. CHF HLD hypothyroidism GERD seizure disorder [place] resident Plan: -Continue Meropenem #7(abx d #9/10) for UTI -10/01 SP Azithromycin x1 -f/u cx -Monitor CBC/CMP, temperatures -COVID19 isolation; still positive on repeat test on 10/01 -Nephro f/u -aspiration precautions -Cdiff if diarrhea -f/u Bcx2, sp cx Thank you for consulting [facility]. Will continue to follow along with you. Discussed with RN, Subjective Allergies: Coded Allergies: No Known Allergies (Unverified , 10/02/19) Subjective at RA afebrile leukocytosis fluctuating; remains at 14 Objective Vital Signs Last 24 Hour Vital Signs Date Time Temp Pulse Resp B/P (MAP) Pulse Ox O2 Delivery O2 Flow Rate FiO2 10/10/19 12:00 97.0 88 18 124/78 (93) 92 10/10/19 09:32 85 159/75 10/10/19 09:00 Room Air 10/10/19 04:00 97.8 89 22 116/74 (88) 99 10/10/19 00:00 97.8 78 22 132/89 (103) 99 10/09/19 21:00 Room Air 10/09/19 20:43 79 103/66 10/09/19 20:00 97.3 79 24 103/66 (78) 99 10/09/19 16:00 98.3 73 19 105/71 (82) 97 Height (Feet): 5 Height (Inches): 5.00 Weight (Pounds): 165 Objective not examined to limit COVID19 exposure Laboratory Tests Test 10/09/19 15:25 10/10/19 06:43 Urine Color Pale yellow Urine Appearance Clear Urine pH 8 (4.5-8.0) Urine Specific [place] 1.010 (1.005-1.035) Urine Protein 4+ (NEGATIVE) H Urine Glucose (UA) 3+ (NEGATIVE) H Urine Ketones Negative (NEGATIVE) Urine Blood 3+ (NEGATIVE) H Urine Nitrite Negative (NEGATIVE) Urine Bilirubin Negative (NEGATIVE) Urine Urobilinogen Normal MG/DL (0.0-1.0) Urine Leukocyte Esterase Negative (NEGATIVE) Urine RBC 5-10 /HPF (0 - 2) H Urine WBC 5-10 /HPF (0 - 2) H Urine Squamous Epithelial Cells Few /LPF (NONE/OCC) Urine Bacteria Few /HPF (NONE) White Blood Count 14.9 K/UL (4.8-10.8) H Red Blood Count 4.30 M/UL (4.20-5.40) Hemoglobin 10.6 G/DL (12.0-16.0) L Hematocrit 32.4 % (37.0-47.0) L Mean Corpuscular Volume 75 FL (80-99) L Mean Corpuscular Hemoglobin 24.6 PG (27.0-31.0) L Mean Corpuscular Hemoglobin Concent 32.6 G/DL (32.0-36.0) Red Cell Distribution Width 12.4 % (11.6-14.8) Platelet Count 423 K/UL (150-450) Mean Platelet Volume 5.1 FL (6.5-10.1) L Neutrophils (%) (Auto) 68.9 % (45.0-75.0) Lymphocytes (%) (Auto) 18.5 % (20.0-45.0) L Monocytes (%) (Auto) 7.4 % (1.0-10.0) Eosinophils (%) (Auto) 4.4 % (0.0-3.0) H Basophils (%) (Auto) 0.8 % (0.0-2.0) Sodium Level 144 MMOL/L (136-145) Potassium Level 3.8 MMOL/L (3.5-5.1) Chloride Level 109 MMOL/L (98-107) H Carbon Dioxide Level 26 MMOL/L (21-32) Anion Gap 9 mmol/L (5-15) Blood Urea Nitrogen 50 mg/dL (7-18) H Creatinine 4.5 MG/DL (0.55-1.30) H Estimat Glomerular Filtration Rate 12.1 mL/min (>60) Glucose Level 91 MG/DL (74-106) Uric Acid 4.5 MG/DL (2.6-7.2) Calcium Level 7.9 MG/DL (8.5-10.1) L Phosphorus Level 4.1 MG/DL (2.5-4.9) Magnesium Level 2.8 MG/DL (1.8-2.4) H Total Bilirubin < 0.1 MG/DL (0.2-1.0) L Aspartate Amino Transf (AST/SGOT) 26 U/L (15-37) Alanine Aminotransferase (ALT/SGPT) 13 U/L (12-78) Alkaline Phosphatase 187 U/L (46-116) H C-Reactive Protein, Quantitative 8.7 mg/dL (0.00-0.90) H Pro-B-Type Natriuretic Peptide 737 pg/mL (0-125) H Total Protein 5.4 G/DL (6.4-8.2) L Albumin 0.7 G/DL (3.4-5.0) L Globulin 4.7 g/dL Albumin/Globulin Ratio 0.1 (1.0-2.7) L Current Medications Medications (Trade) Dose Ordered Sig/Avila Route PRN Reason Start Time Stop Time Status Last Admin Dose Admin Acetaminophen (Tylenol) 650 mg Q4HR PRN ORAL TEMP>100.5 10/02/19 03:15 Chlorhexidine Gluconate (Marlyn-Hex 2%) 1 applic DAILY@2000 TOPIC 10/04/19 20:00 01/02/20 19:59 10/08/19 20:19 Docusate Sodium (Colace) 100 mg TID ORAL 10/03/19 13:00 11/01/19 08:59 10/10/19 13:56 Folic Acid (Folate) 2 mg DAILY ORAL 10/03/19 10:00 11/02/19 09:59 10/10/19 09:31 Haloperidol Lactate (Haldol) 5 mg Q6H PRN IM Agitation 10/03/19 09:33 11/17/19 09:32 10/10/19 14:27 Heparin Sodium/ Sodium Chloride (Heparin 1000 units/500ml Premix) 1,000 unit ONCE PRN IV radiology procedure 10/08/19 17:00 10/10/19 16:59 Heparin Sodium/ Sodium Chloride (Heparin 1000 units/500ml Premix) 1,000 unit ONCE PRN IV PICC LINE PLACEMENT 10/09/19 05:30 10/11/19 05:29 Levetiracetam (Keppra) 500 mg Q12HR ORAL 10/02/19 09:00 11/01/19 08:59 10/10/19 09:32 Levothyroxine Sodium (Synthroid) 25 mcg DAILY@0630 ORAL 10/03/19 06:30 11/02/19 06:29 10/08/19 05:45 Lidocaine HCl (Xylocaine 1% 30ml) 30 ml ONCE PRN INJ radiology procedure 10/08/19 17:00 10/10/19 16:59 Lidocaine HCl (Xylocaine 1% 30ml) 30 ml ONCE PRN INJ PICC LINE PLACEMENT 10/09/19 05:30 01/07/20 05:29 Meropenem 500 mg/ Sodium Chloride 55 ml @ 110 mls/hr Q24H IVPB 10/04/19 14:00 10/10/19 23:59 10/09/19 15:13 Metoprolol Tartrate (Lopressor) 25 mg Q12HR ORAL 10/10/19 21:00 01/05/20 20:59 Phenytoin (Dilantin) 300 mg QHS ORAL 10/03/19 21:00 11/01/19 08:59 10/09/19 20:43 Quetiapine Fumarate (SEROqueL) 25 mg Q12HR ORAL 10/03/19 09:45 11/17/19 09:44 10/10/19 09:32 Sevelamer Carbonate (Renvela) 800 mg THREE TIMES A DAY ORAL 10/10/19 13:00 01/01/20 12:59 10/10/19 13:56 Marie Ross M.D. October 10, 2019 15:23
[2019-10-10] MEDS: Meropenem 500 MG in NS 55 ML IVPB SCH (15:46)
--- NOTE | 2019-10-10 15:48 | Pre-Procedure Note/Attestation ---
Pre-Procedure Note/Attestation Complete Prior to Procedure Planned Procedure: not applicable Procedure Narrative: PICC line Indications for Procedure Pre-Operative Diagnosis: need iv access , pulled out picc line Attestation consent obtained by primary team, confirmed prior to procedure,. Eric Wallace M.D. October 10, 2019 15:48
--- NOTE | 2019-10-10 15:53 | Diagnostic Imaging Report ---
Indications: Needs long-term IV access Technique: Procedure performed at bedside. Procedural timeout performed. Ultrasound confirms patent compressible left basilic vein. Total sterile technique, including sterile probe cover and sterile gel, sterile gloves, hand hygiene, hat, mask,, sterile gown, large sterile drape, and preparation with 2% chlorhexidine utilized. Local anesthesia with 1% lidocaine. Under real-time ultrasound guidance, puncture left basilic vein using 21-gauge needle, passage 0.018 guidewire, exchange for 5 [place] peel-away sheath. 4 [place] dual-lumen power PICC cut to 35 cm. It was inserted through the peel-away sheath. Peel-away sheath and guidewire removed. Catheter fixed to the skin. Both catheter ports aspirated and flushed. Patient tolerated procedure well, without immediate complication. Followup chest x-ray obtained, documents catheter tip position at the central left innominate vein. There is no evidence of pneumothorax. Small left pleural effusion and interstitial opacification/edema not significantly changed compared to prior chest radiograph. Probable RADIO COMMUNICATION COORDINATOR shunt tubing again noted. Impression: Successful bedside placement of 4 [place] double-lumen PICC under sonographic guidance, as described above. Catheter cleared for immediate use.
[2019-10-10 16:00] VITALS: BP 126/72
--- NOTE | 2019-10-10 16:15 | NUR ---
NURSE NOTES: Completed 24-hour urine collection per MD order. Specimen brought to lab.
--- NOTE | 2019-10-10 19:21 | NUR ---
HAND-OFF: Report given to YE Gibson. POC Endorsed.
--- NOTE | 2019-10-10 19:25 | NUR ---
NURSE NOTES: Patient is in bed, awake and alert x2. On room air with no signs of distress or SOB. MANDEEP PICC line in place and running TKO. Bilat soft wrist restraints in progress for removing devices. Bed locked and in lowest position. HOB elevated. Will continue to monitor the patient.
[2019-10-10 20:00] VITALS: BP 135/63
[2019-10-10 21:22] LABS: CREATININE 4.5 MG/DL (0.55-1.30)
[2019-10-10] MEDS: Phenytoin 100mg cap ORAL SCH (21:47)
[2019-10-10] MEDS: Dyna-Hex 2% Top Sol 2oz TOPIC SCH (21:47)
--- NOTE | 2019-10-10 23:00 | Progress Note ---
DATE: 10/10/2019 SUBJECTIVE: Patient was belligerent and calling her nurse using profanity against her nurse today while she was in the room. Patient is disorganized, jumping from one subject to another. She is severely angry. MENTAL STATUS EXAMINATION: Patient is alert, oriented times self, place. Patient was face to face. Mood is agitated and angry. Affect is flat. Thought process, disorganized. Thought content, no suicidal or homicidal ideation. Cognition is impaired. Insight and judgment is impaired. ASSESSMENT: 1. Dementia. 2. Acute encephalopathy. PLAN: 1. Bilateral soft restraints. 2. Seroquel per Dr. Leija. 3. Haldol IM. Alex Kingsley M.D. DR: MEÑO JOB#: [id number] CC:
[2019-10-11] VITALS: BP 135/90
[2019-10-11 04:00] VITALS: BP 108/50
[2019-10-11 05:36] LABS: BASOPHILS % (AUTO) 0.6 % (0.0-2.0); EOSINOPHILS % (AUTO) 4.8 % (0.0-3.0); HEMATOCRIT 27.5 % (37.0-47.0); HEMOGLOBIN 8.9 G/DL (12.0-16.0); MEAN CORPUSCULAR VOLUME 75 FL (80-99); MONOCYTES % (AUTO) 8.4 % (1.0-10.0); NEUTROPHILS % (AUTO) 65.3 % (45.0-75.0); PLATELET COUNT 376 K/UL (150-450); RED BLOOD COUNT 3.65 M/UL (4.20-5.40); RED CELL DISTRIBUTION WIDTH 12.1 % (11.6-14.8); WHITE BLOOD COUNT 13.6 K/UL (4.8-10.8)
[2019-10-11 06:10] LABS: ALANINE AMINOTRANSFERASE 15 U/L (12-78); ALBUMIN < 0.6 G/DL (3.4-5.0); ANION GAP 9 mmol/L (5-15); ASPARTATE AMINO TRANSFERASE 31 U/L (15-37); BILIRUBIN,TOTAL < 0.1 MG/DL (0.2-1.0); BLOOD UREA NITROGEN 45 mg/dL (7-18); CALCIUM 7.7 MG/DL (8.5-10.1); CARBON DIOXIDE 24 MMOL/L (21-32); CHLORIDE 110 MMOL/L (98-107); PHOSPHORUS 3.7 MG/DL (2.5-4.9); POTASSIUM 3.5 MMOL/L (3.5-5.1); SODIUM 143 MMOL/L (136-145)
[2019-10-11] MEDS: Levothyroxine 25mcg tab ORAL SCH (06:11)
--- NOTE | 2019-10-11 07:00 | NUR ---
HAND OFF: Report given to Katrin BELCHER. Addendum: 10/11/19 at 1921 by Trevin Garay RN Wrong patient.
--- NOTE | 2019-10-11 07:15 | NUR ---
NURSE NOTES: Received patient in bed. Awake, Alert x1. Confused. On room air, respirations unlabored. patient denies pain at this time. Bed low and locked, call light within reach. IV in the Left wrist, site intact, PICC line in the left upper arm. Bilateral soft wrist restraints in place, hands are warm and normal color for ethnicity. F/c in place draining clear yellow urine.
--- NOTE | 2019-10-11 07:29 | NUR ---
HAND-OFF: Report given to YE Zhong.
[2019-10-11 07:30] LABS: ALKALINE PHOSPHATASE 164 U/L (46-116)
[2019-10-11 08:00] VITALS: BP 108/60
[2019-10-11 08:00] LABS: ALBUMIN/GLOBULIN RATIO 1.1 (1.0-2.7)
[2019-10-11] MEDS: Docusate 100mg cap ORAL SCH ×3 (09:53→18:13)
--- NOTE | 2019-10-11 10:11 | Pulmonology Progress Note ---
Subjective ROS Limited/Unobtainable: No Interval Events: none new Constitutional: Reports: no symptoms HEENT: Repors: no symptoms Respiratory: Reports: no symptoms Cardiovascular: Reports: no symptoms Allergies: Coded Allergies: No Known Allergies (Unverified , 10/02/19) All Systems: reviewed and negative except above Objective Last 24 Hour Vital Signs Date Time Temp Pulse Resp B/P (MAP) Pulse Ox O2 Delivery O2 Flow Rate FiO2 10/11/19 09:54 86 108/60 10/11/19 09:00 Room Air 10/11/19 08:00 97.0 86 18 108/60 (76) 98 10/11/19 04:00 97.7 96 24 108/50 (69) 100 10/11/19 00:00 97.0 100 24 135/90 (105) 99 10/10/19 21:47 90 135/63 10/10/19 21:00 Room Air 10/10/19 20:00 97.0 90 24 135/63 (87) 100 10/10/19 16:00 97.6 86 18 126/72 (90) 93 10/10/19 12:00 97.0 88 18 124/78 (93) 92 Intake and Output 10/10/19 10/11/19 19:00 07:00 Intake Total 1009 ml 118 ml Output Total 800 ml 600 ml Balance 209 ml -482 ml Intake Oral 954 ml IV Total 55 ml Other 118 ml Output Urine Total 800 ml 600 ml # Bowel Movements 1 General Appearance: no acute distress HEENT: normocephalic Respiratory: chest wall non-tender, lungs clear Cardiovascular: normal peripheral pulses Abdomen: normal bowel sounds Microbiology Date/Time Source Procedure Growth Status 10/09/19 16:15 Blood Blood Culture - Preliminary NO GROWTH AFTER 24 HOURS Resulted 10/09/19 16:00 Blood Blood Culture - Preliminary NO GROWTH AFTER 24 HOURS Resulted Laboratory Tests 10/11/19 05:00: White Blood Count 13.6H, Red Blood Count 3.65L, Hemoglobin 8.9L, Hematocrit 27.5L, Mean Corpuscular Volume 75L, Mean Corpuscular Hemoglobin 24.3L, Mean Corpuscular Hemoglobin Concent 32.3, Red Cell Distribution Width 12.1, Platelet Count 376, Mean Platelet Volume 5.5L, Neutrophils (%) (Auto) 65.3, Lymphocytes ( %) (Auto) 21.0, Monocytes (%) (Auto) 8.4, Eosinophils (%) (Auto) 4.8H, Basophils (%) (Auto) 0.6, Sodium Level 143, Potassium Level 3.5, Chloride Level 110H, Carbon Dioxide Level 24, Anion Gap 9, Blood Urea Nitrogen 45H, Creatinine 4.0H, Estimat Glomerular Filtration Rate 13.9, Glucose Level 80, Uric Acid 4.1, Calcium Level 7.7L, Phosphorus Level 3.7, Magnesium Level 2.8H, Total Bilirubin < 0.1L, Aspartate Amino Transf (AST/SGOT) 31, Alanine Aminotransferase (ALT/SGPT ) 15, Alkaline Phosphatase 164H, Total Protein 5.1L, Albumin < 0.6L, Globulin 4.6, Albumin/Globulin Ratio 1.1, Phenytoin (Dilantin) Level 3.9L Current Medications Medications (Trade) Dose Ordered Sig/Avila Route PRN Reason Start Time Stop Time Status Last Admin Dose Admin Acetaminophen (Tylenol) 650 mg Q4HR PRN ORAL TEMP>100.5 10/02/19 03:15 Chlorhexidine Gluconate (Marlyn-Hex 2%) 1 applic DAILY@2000 TOPIC 10/04/19 20:00 01/02/20 19:59 10/10/19 21:47 Docusate Sodium (Colace) 100 mg TID ORAL 10/03/19 13:00 11/01/19 08:59 10/11/19 09:53 Folic Acid (Folate) 2 mg DAILY ORAL 10/03/19 10:00 11/02/19 09:59 10/11/19 09:53 Haloperidol Lactate (Haldol) 5 mg Q6H PRN IM Agitation 10/03/19 09:33 11/17/19 09:32 10/10/19 14:27 Levetiracetam (Keppra) 500 mg Q12HR ORAL 10/02/19 09:00 11/01/19 08:59 10/11/19 09:54 Levothyroxine Sodium (Synthroid) 25 mcg DAILY@0630 ORAL 10/03/19 06:30 11/02/19 06:29 10/11/19 06:11 Lidocaine HCl (Xylocaine 1% 30ml) 30 ml ONCE PRN INJ PICC LINE PLACEMENT 5/19/20 05:30 01/07/20 05:29 Meropenem 500 mg/ Sodium Chloride 55 ml @ 110 mls/hr Q24H IVPB 10/04/19 14:00 10/11/19 23:59 10/10/19 15:46 Metoprolol Tartrate (Lopressor) 25 mg Q12HR ORAL 10/10/19 21:00 01/05/20 20:59 10/11/19 09:54 Phenytoin (Dilantin) 300 mg QHS ORAL 10/03/19 21:00 11/01/19 08:59 10/10/19 21:47 Potassium Chloride (K-Dur) 20 meq ONCE ORAL 10/11/19 09:15 10/11/19 10:30 10/11/19 09:54 Quetiapine Fumarate (SEROqueL) 25 mg Q12HR ORAL 10/03/19 09:45 11/17/19 09:44 10/11/19 09:54 Sevelamer Carbonate (Renvela) 800 mg THREE TIMES A DAY ORAL 10/10/19 13:00 01/01/20 12:59 10/11/19 09:54 Assessment/Plan Assessment/Plan IMPRESSION: 1. Acute on chronic renal failure. 2. CHF. 3. Hyperlipidemia. 4. Hypothyroidism. 5. GERD. 6. Encephalopathy. 7. Positive COVID-19. 8. Seizure disorder. DISCUSSION: Continue antibiotics per ID. Currently saturating well on room air. I will follow carefully. Jaleel Du Omar Syed MD October 11, 2019 10:11
--- NOTE | 2019-10-11 11:17 | Nephrology Progress Note ---
Assessment/Plan Problem List: (1) ARF (acute renal failure) Assessment: Serum creatinine slightly lower (2) COVID-19 virus infection (3) Renal failure (ARF), acute on chronic (4) Hypoalbuminemia Assessment: Nephrotic range proteinuria (5) Anemia Assessment: Low MCV (6) Diabetes Assessment: Hemoglobin A1c is 6.4 (7) Seizure disorder Assessment Renal failure most likely acute superimposed on chronic 4+ proteinuria with severe hypoalbuminemia should rule out nephrotic syndrome COVID-19 virus infection UTI Anemia with low MCV, likely part due to iron deficiency Toxic metabolic encephalopathy History of seizures Plan October 10: Further improvement in renal parameters Continue per consultants No dialysis arrangement at this time October 09: Blood work continues to indicate improvement with regard to the renal parameters Today for the first time the calculated creatinine clearance by the lab indicates a creatinine clearance of 12cc/min I have decided to hold off dialysis catheter placement today and continue to observe the patient at this time I called the daughter and also discussed with Dr. Leija my views Meanwhile will continue to avoid nephrotoxic's and adjust the blood pressure and blood sugar status Per orders October 08: Serum creatinine down to 5 however calculated creatinine clearance remains 10 cc per minute Dialysis catheter could not be put in yesterday since the patient refused to wear a mask At this time we will continue current treatment plan I discussed with RN . We will get the assistance of patient's daughter in order to proceed with dialysis catheter Meanwhile the patient is stable from renal standpoint of view at this time We will keep monitoring renal parameters October 07: Serum creatinine 5.4 unchanged Creatinine clearance below 10 Will proceed with hemodialysis and dialysis catheter placement October 06: Serum creatinine is down to 5.4 yet creatinine clearance still below 10 We will continue to monitor renal parameters Will decide for initiation of hemodialysis in the next 24 to 48 hours Previously: Discussed with Araseli Jered is the daughter of the patient who agrees with initiation of hemodialysis Labs still pending for today October 05 Kidney ultrasound suggestive of chronic kidney disease also only the right kidney was visualized Patient has low creatinine clearance and requires dialysis treatment Will discuss with case management and or responsible green party regarding initiation of dialysis Meanwhile continue per current management and consultants Discussed with manager of case who will contact the daughter for the consent Meanwhile will discontinue hydration and continue to monitor renal parameters Saini catheter, 24-hour urine collection for protein-ordered results indicative of nephrotic range proteinuria Kidney ultrasound results checked patient has 1 kidney Avoid nephrotoxic's Urine studies Monitor renal parameters Antibiotics Continue per consultants Subjective ROS Limited/Unobtainable: No Constitutional: Reports: malaise Objective Objective Last 24 Hour Vital Signs Date Time Temp Pulse Resp B/P (MAP) Pulse Ox O2 Delivery O2 Flow Rate FiO2 10/11/19 09:54 86 108/60 10/11/19 09:00 Room Air 10/11/19 08:00 97.0 86 18 108/60 (76) 98 10/11/19 04:00 97.7 96 24 108/50 (69) 100 10/11/19 00:00 97.0 100 24 135/90 (105) 99 10/10/19 21:47 90 135/63 10/10/19 21:00 Room Air 10/10/19 20:00 97.0 90 24 135/63 (87) 100 10/10/19 16:00 97.6 86 18 126/72 (90) 93 10/10/19 12:00 97.0 88 18 124/78 (93) 92 Intake and Output 10/10/19 10/11/19 19:00 07:00 Intake Total 1009 ml 118 ml Output Total 800 ml 600 ml Balance 209 ml -482 ml Intake Oral 954 ml IV Total 55 ml Other 118 ml Output Urine Total 800 ml 600 ml # Bowel Movements 1 Laboratory Tests 10/11/19 05:00: White Blood Count 13.6H, Red Blood Count 3.65L, Hemoglobin 8.9L, Hematocrit 27.5L, Mean Corpuscular Volume 75L, Mean Corpuscular Hemoglobin 24.3L, Mean Corpuscular Hemoglobin Concent 32.3, Red Cell Distribution Width 12.1, Platelet Count 376, Mean Platelet Volume 5.5L, Neutrophils (%) (Auto) 65.3, Lymphocytes ( %) (Auto) 21.0, Monocytes (%) (Auto) 8.4, Eosinophils (%) (Auto) 4.8H, Basophils (%) (Auto) 0.6, Sodium Level 143, Potassium Level 3.5, Chloride Level 110H, Carbon Dioxide Level 24, Anion Gap 9, Blood Urea Nitrogen 45H, Creatinine 4.0H, Estimat Glomerular Filtration Rate 13.9, Glucose Level 80, Uric Acid 4.1, Calcium Level 7.7L, Phosphorus Level 3.7, Magnesium Level 2.8H, Total Bilirubin < 0.1L, Aspartate Amino Transf (AST/SGOT) 31, Alanine Aminotransferase (ALT/SGPT ) 15, Alkaline Phosphatase 164H, Total Protein 5.1L, Albumin < 0.6L, Globulin 4.6, Albumin/Globulin Ratio 1.1, Phenytoin (Dilantin) Level 3.9L Height (Feet): 5 Height (Inches): 5.00 Weight (Pounds): 165 General Appearance: no apparent distress Objective No change Yinka Boston MD October 11, 2019 11:16
--- NOTE | 2019-10-11 11:58 | NUR ---
DISCHARGE PLANNING PATIENT HAS BEEN REFERRED BACK TO [facility] P: [phone] F: [phone] Addendum: 10/11/19 at 1249 by ROBBIE PALMA LVN LVN FOLLOW UP CALL MADE TO [facility]. TROMBONE SLIDE ASSEMBLER UNAVAILABLE AT TIME OF CALL. WILL CALL BACK.
[2019-10-11 12:00] VITALS: BP 119/73
--- NOTE | 2019-10-11 12:07 | General Progress Note ---
Assessment/Plan Problem List: (1) Anemia ICD Codes: D64.9 - Anemia, unspecified SNOMED: 617020871 Qualifiers: Qualified Codes: D64.9 - Anemia, unspecified (2) Diabetes ICD Codes: E11.9 - Type 2 diabetes mellitus without complications SNOMED: 29777198 (3) Malnutrition ICD Codes: E46 - Unspecified protein-calorie malnutrition SNOMED: 19338320 (4) Weak ICD Codes: R53.1 - Weakness SNOMED: 95757485 (5) Sepsis ICD Codes: A41.9 - Sepsis, unspecified organism SNOMED: 97927345 (6) UTI (urinary tract infection) ICD Codes: N39.0 - Urinary tract infection, site not specified SNOMED: 33457014 Qualifiers: Qualified Codes: N30.00 - Acute cystitis without hematuria (7) HTN (hypertension) ICD Codes: I10 - Essential (primary) hypertension SNOMED: 99852838 (8) ARF (acute renal failure) ICD Codes: N17.9 - Acute kidney failure, unspecified SNOMED: 71080112 Qualifiers: Qualified Codes: N17.9 - Acute kidney failure, unspecified (9) Hypothyroid ICD Codes: E03.9 - Hypothyroidism, unspecified SNOMED: 72188802 (10) FTT (failure to thrive) in adult ICD Codes: R62.7 - Adult failure to thrive SNOMED: 616973760 (11) COVID-19 virus infection ICD Codes: U07.1 - COVID-19 SNOMED: 829229575 Status: stable, progressing Assessment/Plan: pt diet abx cbc bmp am dc plan Subjective Constitutional: Reports: weakness Allergies: Coded Allergies: No Known Allergies (Unverified , 10/02/19) All Systems: reviewed and negative except above Subjective sleepy calm Objective Last 24 Hour Vital Signs Date Time Temp Pulse Resp B/P (MAP) Pulse Ox O2 Delivery O2 Flow Rate FiO2 10/11/19 09:54 86 108/60 10/11/19 09:00 Room Air 10/11/19 08:00 97.0 86 18 108/60 (76) 98 10/11/19 04:00 97.7 96 24 108/50 (69) 100 10/11/19 00:00 97.0 100 24 135/90 (105) 99 10/10/19 21:47 90 135/63 5/20/20 21:00 Room Air 10/10/19 20:00 97.0 90 24 135/63 (87) 100 10/10/19 16:00 97.6 86 18 126/72 (90) 93 Intake and Output 10/10/19 10/11/19 19:00 07:00 Intake Total 1009 ml 118 ml Output Total 800 ml 600 ml Balance 209 ml -482 ml Intake Oral 954 ml IV Total 55 ml Other 118 ml Output Urine Total 800 ml 600 ml # Bowel Movements 1 Laboratory Tests 10/11/19 05:00: White Blood Count 13.6H, Red Blood Count 3.65L, Hemoglobin 8.9L, Hematocrit 27.5L, Mean Corpuscular Volume 75L, Mean Corpuscular Hemoglobin 24.3L, Mean Corpuscular Hemoglobin Concent 32.3, Red Cell Distribution Width 12.1, Platelet Count 376, Mean Platelet Volume 5.5L, Neutrophils (%) (Auto) 65.3, Lymphocytes ( %) (Auto) 21.0, Monocytes (%) (Auto) 8.4, Eosinophils (%) (Auto) 4.8H, Basophils (%) (Auto) 0.6, Sodium Level 143, Potassium Level 3.5, Chloride Level 110H, Carbon Dioxide Level 24, Anion Gap 9, Blood Urea Nitrogen 45H, Creatinine 4.0H, Estimat Glomerular Filtration Rate 13.9, Glucose Level 80, Uric Acid 4.1, Calcium Level 7.7L, Phosphorus Level 3.7, Magnesium Level 2.8H, Total Bilirubin < 0.1L, Aspartate Amino Transf (AST/SGOT) 31, Alanine Aminotransferase (ALT/SGPT ) 15, Alkaline Phosphatase 164H, Total Protein 5.1L, Albumin < 0.6L, Globulin 4.6, Albumin/Globulin Ratio 1.1, Phenytoin (Dilantin) Level 3.9L Height (Feet): 5 Height (Inches): 5.00 Weight (Pounds): 165 General Appearance: lethargic EENT: normal ENT inspection Neck: normal alignment Cardiovascular: normal rate, regular rhythm Respiratory/Chest: no respiratory distress, no accessory muscle use Extremities: normal inspection Skin: normal pigmentation Dustin Leijag October 11, 2019 12:07
--- NOTE | 2019-10-11 12:43 | NUR ---
REALTIME COURT REPORTER NOTE PER DR LUCERO, OK TO DC FROM RENAL STANDPOINT. WILL REQUIRE OPT FOLLOW UP FOR RENAL MONITORING. NOTED AND CARRIED OUT. DR MAHMOOD INFORMED CM PATIENT OK TO DC. PER DR CRUZ, GRZEGORZ DC AFTER LAST DOSE OF IV ABX.
[2019-10-11] MEDS: Meropenem 500 MG in NS 55 ML IVPB SCH (13:31)
--- NOTE | 2019-10-11 13:50 | NUR ---
DISCHARGE PLANNING CALL MADE TO PATIENTS DAUGHTER LIZANDRO GAMINO @ [phone] AND INFORMED PATIENT WILL BE DISCHARGED TODAY AFTER LAST DOSE OF IV ABX. AGREES WITH DC AND CONFIRMS PATIENT WILL RETURN HOME WITH HER TO DC ADDRESS [address] [place] [id number] DAUGHTER WILL COME FOR PATIENT AT [phone]
[2019-10-11] MEDS ORDERED: KEPPRA500 M4 ORAL (13:55)
[2019-10-11] MEDS ORDERED: TYLENOL325 M1 PO (13:55)
[2019-10-11] MEDS ORDERED: DOCUSATE SODIU100 MG ORAL (13:55)
[2019-10-11] MEDS ORDERED: LEVOTHYROXINE75 MCG ORAL (13:55)
[2019-10-11] MEDS ORDERED: IMITREX50 MG ORAL (13:55)
[2019-10-11] MEDS ORDERED: FUROSEMIDE20 M1 ORAL (13:55)
[2019-10-11] MEDS ORDERED: ATENOLOL50 MG ORAL (13:55)
[2019-10-11] MEDS ORDERED: PHENYTOIN SODI100 MG ORAL (13:55)
--- NOTE | 2019-10-11 14:15 | NUR ---
CHARGE NURSE NOTE: Got a call from Pt's daughter Araseli. She wants to talk to the primary doctor before discharge. notified.
--- NOTE | 2019-10-11 14:16 | NUR ---
TITLE OFFICER NOTE DR LESTER INFORMED CLEARANCE OBTAINED FROM ID, PULMO AND RENAL. ALSO INFORMED THAT PATIENTS DAUGHTER WANTS PATIENT TO RETURN HOME WITH HER UPON DC. DR LESTER OK'D AND GAVE DC ORDER. NOTED AND CARRIED OUT. CHARGE NURSE KAY INFORMED.
[2019-10-11 16:00] VITALS: BP 119/62
--- NOTE | 2019-10-11 16:02 | Infectious Diseases Prog Note ---
Assessment/Plan Assessment/Plan Assessment: COVID positive (tested positive on 09/20)-still positive -10/09 CXR: Improved densities lateral left lung base with minimal residual. -10/01 CXR: There is some crowding of bronchovascular markings at the left lung base. Left costophrenic sulcus is obscured, small pleural effusion likely. SARS-COV2 PCR + UTI -10/08 u/a wbc 5-10, nit neg, leuk neg -10/01 u/a wbc tnct, nit +, leuk +2; ucx >100k M, morganii, probable Amp-C (R amp, Ancef, macrobid; S Ceftriaxone), >100k E.coli (I Amp; otherwise S), >100k mixed gram positive Bcx Neg Afebrile Leukocytosis; fluctuating- ?reactive -10/08 Bcx NTD BOB on CKD (cr 10.4)- last Cr available was 1.4 on 2005- improving -Renal US: LIMITED STUDY DUE TO PATIENT'S BODY HABITUS. LEFT KIDNEY NOT VISUALIZED.CORTICAL THINNING AND INCREASED CORTICAL ECHOGENICITY OF THE RIGHT KIDNEY REFLECTING MEDICAL RENAL DISEASE. SMALL RENAL CYST NOTED BUT NO SIGN OF OBSTRUCTIVE UROPATHY. CHF HLD hypothyroidism GERD seizure disorder MD resident Plan: -Continue Meropenem #8(abx d #/) for UTI --ok to discharge back fo SNF on isolation -10/01 SP Azithromycin x1 -f/u cx -Monitor CBC/CMP, temperatures -COVID19 isolation; still positive on repeat test on 10/01 -Nephro f/u -aspiration precautions -Cdiff if diarrhea -f/u Bcx2, sp cx Thank you for consulting [facility]. Will continue to follow along with you. Discussed with RN, Subjective Allergies: Coded Allergies: No Known Allergies (Unverified , 10/02/19) Subjective at RA afebrile wbc mildly improved Objective Vital Signs Last 24 Hour Vital Signs Date Time Temp Pulse Resp B/P (MAP) Pulse Ox O2 Delivery O2 Flow Rate FiO2 10/11/19 12:00 97.0 91 18 119/73 (88) 92 10/11/19 09:54 86 108/60 10/11/19 09:00 Room Air 10/11/19 08:00 97.0 86 18 108/60 (76) 98 10/11/19 04:00 97.7 96 24 108/50 (69) 100 10/11/19 00:00 97.0 100 24 135/90 (105) 99 10/10/19 21:47 90 135/63 10/10/19 21:00 Room Air 10/10/19 20:00 97.0 90 24 135/63 (87) 100 10/10/19 16:00 97.6 86 18 126/72 (90) 93 Height (Feet): 5 Height (Inches): 5.00 Weight (Pounds): 165 Objective Gen: no distress Head: normocephalic Lungs:no tachypnea, no use of accessory muscle Abd; no distended Neuro: awake and alert Microbiology Date/Time Source Procedure Growth Status 10/09/19 16:15 Blood Blood Culture - Preliminary NO GROWTH AFTER 24 HOURS Resulted 10/09/19 16:00 Blood Blood Culture - Preliminary NO GROWTH AFTER 24 HOURS Resulted Laboratory Tests Test 10/11/19 05:00 White Blood Count 13.6 K/UL (4.8-10.8) H Red Blood Count 3.65 M/UL (4.20-5.40) L Hemoglobin 8.9 G/DL (12.0-16.0) L Hematocrit 27.5 % (37.0-47.0) L Mean Corpuscular Volume 75 FL (80-99) L Mean Corpuscular Hemoglobin 24.3 PG (27.0-31.0) L Mean Corpuscular Hemoglobin Concent 32.3 G/DL (32.0-36.0) Red Cell Distribution Width 12.1 % (11.6-14.8) Platelet Count 376 K/UL (150-450) Mean Platelet Volume 5.5 FL (6.5-10.1) L Neutrophils (%) (Auto) 65.3 % (45.0-75.0) Lymphocytes (%) (Auto) 21.0 % (20.0-45.0) Monocytes (%) (Auto) 8.4 % (1.0-10.0) Eosinophils (%) (Auto) 4.8 % (0.0-3.0) H Basophils (%) (Auto) 0.6 % (0.0-2.0) Sodium Level 143 MMOL/L (136-145) Potassium Level 3.5 MMOL/L (3.5-5.1) Chloride Level 110 MMOL/L (98-107) H Carbon Dioxide Level 24 MMOL/L (21-32) Anion Gap 9 mmol/L (5-15) Blood Urea Nitrogen 45 mg/dL (7-18) H Creatinine 4.0 MG/DL (0.55-1.30) H Estimat Glomerular Filtration Rate 13.9 mL/min (>60) Glucose Level 80 MG/DL (74-106) Uric Acid 4.1 MG/DL (2.6-7.2) Calcium Level 7.7 MG/DL (8.5-10.1) L Phosphorus Level 3.7 MG/DL (2.5-4.9) Magnesium Level 2.8 MG/DL (1.8-2.4) H Total Bilirubin < 0.1 MG/DL (0.2-1.0) L Aspartate Amino Transf (AST/SGOT) 31 U/L (15-37) Alanine Aminotransferase (ALT/SGPT) 15 U/L (12-78) Alkaline Phosphatase 164 U/L (46-116) H Total Protein 5.1 G/DL (6.4-8.2) L Albumin < 0.6 G/DL (3.4-5.0) L Globulin 4.6 g/dL Albumin/Globulin Ratio 1.1 (1.0-2.7) Phenytoin (Dilantin) Level 3.9 ug/mL (10-20) L Current Medications Medications (Trade) Dose Ordered Sig/Avila Route PRN Reason Start Time Stop Time Status Last Admin Dose Admin Acetaminophen (Tylenol) 650 mg Q4HR PRN ORAL TEMP>100.5 10/02/19 03:15 Chlorhexidine Gluconate (Marlyn-Hex 2%) 1 applic DAILY@1999 TOPIC 10/04/19 20:00 01/02/20 19:59 10/10/19 21:47 Docusate Sodium (Colace) 100 mg TID ORAL 10/03/19 13:00 11/01/19 08:59 10/11/19 13:31 Folic Acid (Folate) 2 mg DAILY ORAL 10/03/19 10:00 11/02/19 09:59 10/11/19 09:53 Haloperidol Lactate (Haldol) 5 mg Q6H PRN IM Agitation 10/03/19 09:33 11/17/19 09:32 10/10/19 14:27 Levetiracetam (Keppra) 500 mg Q12HR ORAL 10/02/19 09:00 11/01/19 08:59 10/11/19 09:54 Levothyroxine Sodium (Synthroid) 25 mcg DAILY@0630 ORAL 10/03/19 06:30 11/02/19 06:29 10/11/19 06:11 Lidocaine HCl (Xylocaine 1% 30ml) 30 ml ONCE PRN INJ PICC LINE PLACEMENT 10/09/19 05:30 01/07/20 05:29 Meropenem 500 mg/ Sodium Chloride 55 ml @ 110 mls/hr Q24H IVPB 10/04/19 14:00 10/11/19 23:59 10/11/19 13:31 Metoprolol Tartrate (Lopressor) 25 mg Q12HR ORAL 10/10/19 21:00 01/05/20 20:59 10/11/19 09:54 Phenytoin (Dilantin) 300 mg QHS ORAL 10/03/19 21:00 11/01/19 08:59 10/10/19 21:47 Quetiapine Fumarate (SEROqueL) 25 mg Q12HR ORAL 10/03/19 09:45 11/17/19 09:44 10/11/19 09:54 Sevelamer Carbonate (Renvela) 800 mg THREE TIMES A DAY ORAL 10/10/19 13:00 01/01/20 12:59 10/11/19 13:31 Marie Ross M.D. October 11, 2019 16:02
--- NOTE | 2019-10-11 16:16 | NUR ---
DISCHARGE PLAN PATIENT WILL DISCHARGE HOME WITH DAUGHTER LIZANDRO GAMINO [phone] BLS AMBULANCE TRANSPORTATION SCHEDULED WITH [facility] WITH ETA @ 1800 PM BIBIANA VILLANUEVA INFORMED CALL MADE TO LIZANDRO GAMINO DTR AND INFORMED OF ETA FOR AMBULANCE TRANSPORTATION WITH ETA
[2019-10-11] MEDS: Haloperidol 5mg/ml Inj IM PRN (18:14)
--- NOTE | 2019-10-11 19:00 | NUR ---
HAND OFF: Report given to Katrin BELCHER.
--- NOTE | 2019-10-11 20:05 | NUR ---
NURSE NOTES: Discharged home by ambulance with stable vital signs. PICC line and indwelling land catheter removed.
--- NOTE | 2019-10-12 03:30 | Progress Note ---
DATE: 10/11/2019 HISTORY OF PRESENT ILLNESS: The patient continues to be easily agitated, cursing out the nurses, using profanities, disorganized. MENTAL STATUS EXAMINATION: The patient is alert and oriented times self, place. Mood is agitated. Affect is flat. Thought process is concrete. Thought content, no suicidal or homicidal ideation. Cognition is impaired. Insight and judgment is impaired. ASSESSMENT: 1. Dementia. 2. Acute encephalopathy. PLAN: 1. Haldol IM. 2. Bilateral self restraints. 3. Continue to follow. Alex Kingsley M.D. DR: ZOË JOB#: [id number] CC:
--- NOTE | 2019-10-16 08:17 | Discharge Summary ---
Discharge Summary Discharge Summary _ DATE OF ADMISSION: 10/02/2019 DATE OF DISCHARGE: 10/11/2019 DISCHARGED BY: Dr. Leija REASON FOR ADMISSION: 59 years old female with past medical history of psychiatric disorder, seizure disorder, hypothyroidism, hyperlipidemia, encephalopathy, GERD, presented with complaint of generalized weakness and decreased appetite. Patient apparently tested positive for COVID-19 on September 20. Since that time symptoms got progressively worse. No fever or chills. No cough or congestion. Upon evaluation pulse oximetry was stable on room air. Laboratory work-up revealed leukocytosis WBC 16.3, anemia with hemoglobin 11.5, hematocrit 33.8, platelet count 457. D-dimer 4.1. CRP 16.5. Chemistry showed evidence of acute renal failure with BUN 114, creatinine 10.5. Glucose 122. Lactic acid 1.8. Troponin negative. ECG revealed NSR, no acute ischemic changes. AST 53, ALT 49. Albumin 1.0. Urinalysis revealed evidence of urinary tract infection. Chest x-ray demonstrated some crowding of bronchovascular marking in the left lung base. Probable small left pleural effusion. Patient was swab for COVID-19. In emergency department patient received empiric antibiotics, IV fluid Lovenox and admitted for further management. CONSULTANTS: neurologist Dr. Barrera ID specialist Dr. Ross tank wagon driver Dr. [place] psychiatrist Dr. Kingsley [facility] COURSE: Patient admitted to isolation room and started on the IV hydration and empiric antibiotics. Urine studies were done. Saini catheter was inserted. Nephrotoxins were avoided. Renal ultrasound demonstrated cortical thinning and increased cortical echogenicity of the right kidney, reflecting medical renal disease. Small renal cyst noted , but no signs of obstructive uropathy. Renal parameters and electrolytes were closely monitored. Urine studies were followed. Prior to discharge BUN 45, creatinine 4.0. Court Reporter decided to hold off on dialysis catheter placement and observe patient at this time, since blood work continues to show improvement in regards to the renal parameters. The decision was discussed with patient's daughter. Meantime tank wagon driver recommended continue to avoid nephrotoxic's and adjust blood pressure and blood sugar status. SARS-CoV-2 by PCR on 10/01 was still detected. Urine culture revealed E. coli and Morganella. Blood culture initial and repeated were negative. Leukocytosis trending down. No fevers. ID specialist recommended complete antibiotics for UTI for total of 10 days and cleared patient for discharge back to [facility]. Aspiration precaution maintained. Pulse oximetry remained stable on room air. Repeated chest x-ray showed improved density in the lateral left lung base with a minimal residual. Blood pressure was managed with beta-fuad. Lipid panel was stable. Daily dose of Lasix resumed. Volumes were closely monitored. DVT prophylaxis provided Seizure precaution maintained. Antiepileptic continued. Blood sugar was closely monitored, hemoglobin A1c 6.4. Current dose of levothyroxine continued. TSH within normal limits. Hemoglobin and hematocrit were closely monitored with goal to keep hemoglobin above 7. Anemia work-up consistent with anemia of chronic disease ; high ferritin noted and n low folate level noted. Patient started on folic acid replacement. Prior to discharge hemoglobin 8.9, hematocrit 27.5. Psych medication optimized as per psychiatrist Supportive care provided. Patient clinically stabilized and was ready for discharge FINAL DIAGNOSES: Sepsis Acute renal failure, superimposed on chronic Confirmed COVID-19 infection UTI Anemia Acute toxic metabolic encephalopathy Seizure disorder Hypertension Diabetes mellitus Malnutrition Hypothyroidism Dementia Severe proteinuria with severe hypoalbuminemia DISCHARGE MEDICATIONS: See Medication Reconciliation list. DISCHARGE INSTRUCTIONS: Patient was discharged home. Follow-up with her primary care provider in 1 to 2 weeks via phone given 2019 I have been assigned to dictate discharge summary for this account. I was not involved in the patient's management. Karley Martinez NP October 16, 2019 08:17
== END 2019-10-11 20:05 | disposition home or self-care (01) | DRG 720 ==
LOC: EDBD 00:52 → EMR 01:24 → 4E 01:40 → EDBEDREQ 03:52
PROC: 05H433Z Insertion of Infusion Device into Left Innominate Vein, Percutaneous Approach (ICD-10-PCS; principal; 2019-10-05)
DX: A41.89 Other specified sepsis (principal); U07.1 COVID-19; N17.9 Acute kidney failure, unspecified; G92 Toxic encephalopathy; G40.909 Epilepsy, unspecified, not intractable, without status epilepticus; N39.0 Urinary tract infection, site not specified; R62.7 Adult failure to thrive; Z68.27 Body mass index [BMI] 27.0-27.9, adult; E03.9 Hypothyroidism, unspecified; E78.5 Hyperlipidemia, unspecified; B96.20 Unspecified Escherichia coli [E. coli] as the cause of diseases classified elsewhere; B96.89 Other specified bacterial agents as the cause of diseases classified elsewhere; K21.9 Gastro-esophageal reflux disease without esophagitis; N18.9 Chronic kidney disease, unspecified; F32.9 Major depressive disorder, single episode, unspecified; E46 Unspecified protein-calorie malnutrition; I12.9 Hypertensive chronic kidney disease with stage 1 through stage 4 chronic kidney disease, or unspecified chronic kidney disease; E11.22 Type 2 diabetes mellitus with diabetic chronic kidney disease
CPT/HCPCS: 36415; 36569; 71045; 76770; 76937; 80048; 80053; 80061; 80076; 80185; 81001; 81003; 81050; 82550; 82575; 82607; 82728; 82746; 82977; 83036; 83540; 83550; 83605; 83615; 83735; 83880; 84100; 84156; 84443; 84484; 84550; 85007; 85025; 85379; 85610; 85651; 85730; 86140; 86706; 86707; 86803; 87040; 87081; 87086; 87181; 87635; 93005; 99291; J7030; J8499